=== PATIENT | female | born 1955 | race Caucasian/White ===

== ENCOUNTER → 2018-09-29 | Outpatient (CLI) | payer OTHER ==
[2015-05-21 08:10] VITALS: BP 130/61
[~2018-09-29] MED LIST: CANA300T PO; CLOP75TA PO; ERGO500027 PO; FENO145T30 PO; FERR325T72 PO; INSU100C4 SQ; INSU100I13 SQ; LEVO175T5 PO; LISI10TA2 PO; METF500T16 PO; OMEP10CA PO; SERT100T8 PO; SIMV80TA7 PO
--- NOTE | 2018-09-29 08:47 | RAD ---
DATE: 09/29/2018 EXAM: DIGITAL SCREEN BILAT W/CAD HISTORY: Routine screening COMPARISON: Baseline study This study was interpreted with the benefit of Computerized Aided Detection (CAD). Breast Density: FATTY The breast parenchyma is primarily fatty replaced. Breast parenchyma level density A. FINDINGS: No suspicious breast densities are seen. Benign type calcifications are present. No suspicious microcalcifications are evident. IMPRESSION: There is no mammographic evidence of malignancy in either breast. BI-RADS CATEGORY: 2 BENIGN FINDING(S) RECOMMENDED FOLLOW-UP: 12M 12 MONTH FOLLOW-UP PQRS compliance statement: Patient information was entered into a reminder system with a target due date for the next mammogram. Mammography is a sensitive method for finding small breast cancers, but it does not detect them all and is not a substitute for careful clinical examination. A negative mammogram does not negate a clinically suspicious finding and should not result in delay in biopsying a clinically suspicious abnormality. "Our facility is accredited by the [employer] Mammography Program."
== END | disposition home or self-care (01) ==
LOC: MAMMO 07:52
PROVIDERS: ATTEND Family Medicine
DX: Z12.31 Encounter for screening mammogram for malignant neoplasm of breast (principal)
CPT/HCPCS: 77067

== ENCOUNTER → 2019-06-08 | Outpatient (CLI) | payer OTHER ==
[2015-05-21 08:10] VITALS: BP 130/61
[~2019-06-08] MED LIST changes: +SIMV80TA17 PO; -SIMV80TA7 PO
--- NOTE | 2019-06-08 12:05 | KCIC ---
MRI Lumbar Spine without contrast History: Low back pain, osteoarthritis Technique: Multiplanar, multi sequential noncontrast MR imaging was performed of the lumbar spine. Comparison: None Findings: Lumbar vertebral body stature is mostly maintained other than multilevel small Schmorl's nodes. There is mild grade 1 anterior spondylolisthesis at L5-S1. There is fairly advanced degenerative disc disease variably L2-3 through L4-5 and to lesser degree at L1-2 and L5-S1. There is very minimal L2-3 and L1-2 endplate edema likely reactive/degenerative in etiology. Conus terminates at L1. T11-12: There is shallow broad posterior bulge/protrusion without significant spinal stenosis. There is mild posterior neural foramina compromise by facets. T12-L1: There is mild buckling of the ligamentum flavum greater on the right. Spinal canal and neural foramina are adequate. L1-2: There is minimal disc osteophyte complex and bulge, mild buckling of the ligamentum flavum, and mild facet degenerative change. Spinal canal is adequate. There is mild posterior narrowing of the left neural foramen by facet, right neural foramen adequate. L2-L3: There is disc osteophyte complex and bulge/broad protrusion about 2 mm AP. There is mild facet hypertrophic change and buckling of the ligamentum flavum. There is mild narrowing of the far left lateral recess. There is [id number] narrowing of the left neural foramen mostly from posteriorly by facet, right neural foramen adequate. L3-L4: There is disc osteophyte complex and bulge. There is mild to moderate facet hypertrophic change and mild buckling of the ligamentum flavum. There is mild narrowing of the far left lateral recess. There is mild to moderate narrowing of the left neural foramen by disc osteophyte complex and facet, disc osteophyte complex near the extraforaminal left L3 nerve root without significant displacement. Right neural foramen is overall adequate. L4-L5: There is negligible disc osteophyte complex. There is mild buckling of the ligamentum flavum and mild to moderate facet degenerative change. Spinal canal is adequate. Left neural foramen is adequate, mild narrowing of the right neural foramen greater distally. L5-S1: There is moderate to severe left facet degenerative change, minimally on the right. Spinal canal is adequate. There is mild posterior narrowing of the right neural foramen, moderate to severe narrowing greater distally on the left in part by disc osteophyte complex with contact of the exiting left L5 nerve root. Impression: 1. There is multilevel fairly advanced degenerative disc disease variably L2-3 through L4-5 and to lesser degree at other levels, multilevel spondylosis. 2. There is mild narrowing of the far left lateral recesses at L2-3 and L3-4. 3. There is neural foramina compromise as stated most notable on the left at L5-S1 with contact exiting left L5 nerve root, lesser degree of narrowing on the left at L3-4 and L2-3. Electronically signed by: Jeromy Carpenter MD (06/08/2019 12:02 PM) [id number]
== END | disposition home or self-care (01) ==
LOC: KCIC MRI 10:36
PROVIDERS: ATTEND Family Medicine
DX: M51.37 Other intervertebral disc degeneration, lumbosacral region (principal); M47.816 Spondylosis without myelopathy or radiculopathy, lumbar region; M48.07 Spinal stenosis, lumbosacral region; M43.17 Spondylolisthesis, lumbosacral region; M25.78 Osteophyte, vertebrae; M89.38 Hypertrophy of bone, other site
CPT/HCPCS: 72148

== ENCOUNTER → 2019-07-05 | Outpatient (CLI) | payer OTHER ==
[2015-05-21 08:10] VITALS: BP 130/61
[~2019-07-05] MED LIST changes: +COLE1TAB2 PO; +DICL75TA PO; +IBUP-1027 PO; +INSU100C SQ; +INSU100V13 SQ; +cbd oil PO
--- NOTE | 2019-07-06 04:20 | PAIN ---
DATE OF SERVICE: 07/05/2019 INITIAL CONSULTATION CHIEF COMPLAINT: Low back pain. HISTORY OF PRESENT ILLNESS: This is a 64-year-old female who presents with history of pain in the low back bilaterally without radiation in lower extremities, but present for about a year, gradually increasing, not result of any specific injury or action that she is aware of, but getting much worse with time. The patient reports it is worse with standing, walking, changing positions, especially with extension of the lumbar spine, reaching up over her head to a shelf and extension of the spine. Forward flexion decreases the pain to a moderate extent. The patient reports the pain is constant daily. It is aching, radiating across the low back, but not into the legs. It is dull as well as a throbbing pain in the back itself. The patient reports it does not awake her from sleep at night, feels much better with lying down. It does not affect her bowel or bladder control, does affect her ability to walk significantly without any weakness in the lower extremities. However, the patient has tried physical therapy, also chiropractic treatment. She is currently doing once a week and doing exercise on her own since April. The patient reports that the physical therapy helped to some extent, but does not decrease the pain consistently. She is doing the exercises from therapy and also seeing chiropractic about once a week, which helps ____. The patient has tried prednisone, muscle relaxer as Tylenol, ibuprofen, always helped to a moderate extent, but nothing long-lasting. The patient rates her disability rating from 0-10, 10 being the worst at night, with 10 family home responsibilities, recreation, social activity and occupation, 0 with sexual behavior and 1 with self-care and 0 with life support activities. The patient did have imaging of the lumbar spine MRI showing multilevel fairly advanced degenerative disc disease at L2-L3 through L4-L5 with mild narrowing of the far left lateral recess at L2-L3 and L3-L4 and neural foraminal compromise notable on the left at L5-S1 with contact exiting left L5 nerve root. PAST MEDICAL HISTORY: Significant for type 2 diabetes, hypothyroidism, anemia, arthritis. PAST SURGICAL HISTORY: Previous surgery include x 2, cholecystectomy, D&C, and a DVT, which was calcified removed from the left calf. CURRENT MEDICATIONS: Include diclofenac, colestipol, insulin, ibuprofen, metformin, Invokana, sertraline, Plavix, iron, lisinopril, vitamin D2, simvastatin, Prilosec, and fenofibrate. ALLERGIES: ASPIRIN and SULFA. FAMILY HISTORY: Significant for heart disease and diabetes. SOCIAL HISTORY: The patient does not drink alcohol, does not smoke, does not use any illegal, illicit or recreational drugs. She is , lives with her spouse, has one child living at home, lives locally in [place], [place]. REVIEW OF SYSTEMS: The patient's review of systems is positive for those items mentioned in history of present illness. All systems reviewed and otherwise negative. It is complete, full and well documented on the patient's chart. PHYSICAL EXAMINATION: VITAL SIGNS: The patient's blood pressure is 148/67, pulse 73, respirations 18, temperature 98.5 degrees Fahrenheit, height is 5 feet 5 inches, and weight is 201 pounds. GENERAL: The patient is awake, alert, oriented, appropriate, very pleasant demeanor. HEENT: Head shows normocephalic, atraumatic. Extraocular movements are intact and symmetrical. Oral cavity, mucous membranes moist and pink. Dentition is intact. NECK: Shows anterior throat supple without palpable lymphadenopathy noted. Swallow reflex symmetrical. CHEST: Shows normal on inspection. Breath sounds clear to auscultation bilaterally. HEART: Shows S1, S2 clear. No murmurs auscultated. ABDOMEN: Soft, nontender, nondistended. No palpable organomegaly is noted. No rebound or guarding demonstrated. BACK: Shows spine grossly in the midline, normal-appearing cervical lordotic curvature, thoracic kyphotic curvature, and mild flattening of lumbar lordotic curvature. Lumbar paraspinous muscle shows symmetrical on inspection with palpation shows some mild tenderness throughout the upper, middle, and lower distribution of paraspinous muscles, but only diffusely without specific radiation. The patient has good rotational motion of lumbar spine both laterally greater than 10 degrees right and left as well as forward flexion 45 degrees, but with extension and axial loading of the low back shows significant tenderness in the low back itself equally right and left without radiation to the lower extremities. EXTREMITIES: The patient's lower extremities show deep tendon reflexes at 2+ in the patellar and 1+ tendo calcaneus tendons. Motor exam is strong with 5/5 dorsiflexion, extension, quadriceps and hamstring flexion. Peripheral pulses are 1+ posterior tibia. No peripheral edema is noted. Straight leg raise noted to be negative bilaterally as is Gaenslen's and Reyes's maneuvers bilaterally. Lower extremities are warm and dry to touch, equal in color and appearance. The patient is able to stand, stand on her toes without difficulty or loss of balance, walks with a normal appearing gait for short distance in the office today, not using any assistive devices to ambulate. SKIN: Shows warm and dry, good turgor. No edema. No sores, rashes or bruising. IMPRESSION: 1. This is a 64-year-old female with a long history about 1 year increasing pain across the low back worse with standing, extension of the lumbar spine, and axial loading of the low back. 2. ____. PLAN: Options were discussed with the patient including conservative medical management, physical therapies, interventional techniques, and she is doing physical therapy also, doing chiropractic. She would like to try interventional techniques. We discussed lumbar facet joint injections at L4-L5 and L5-S1 using description as well as anatomical models to describe the procedure. The patient will wait for preauthorization from her insurance provider. Once this is authorized, we will have her return for facet joint injections, L4-L5 and L5-S1 bilaterally. In the meantime, the patient will continue with exercises, stretching, strengthening, and chiropractic treatment as scheduled. JOSR KERR MD DR: BRAULIO/jo JOB#: [id number] / [id number]
== END | disposition home or self-care (01) ==
LOC: PNCL 07:47
PROVIDERS: ATTEND Anesthesiology
DX: M54.16 Radiculopathy, lumbar region (principal); M19.90 Unspecified osteoarthritis, unspecified site; M40.294 Other kyphosis, thoracic region; M40.46 Postural lordosis, lumbar region; E11.9 Type 2 diabetes mellitus without complications; E03.9 Hypothyroidism, unspecified
CPT/HCPCS: G0463

== ENCOUNTER → 2019-08-01 | Outpatient (CLI) | payer OTHER ==
[2015-05-21 08:10] VITALS: BP 130/61
[~2019-08-01] MED LIST changes: +BUPIVACAINE MPF 0.25% 10 ML VIAL. ONE; +IOHEXOL 180 MG/ML 10 ML VIAL. ONE; +methylPREDNISolone ACETATE 40 MG/ML VIAL. ONE; +methylPREDNISolone ACETATE 80 MG/ML VIAL. ONE
--- NOTE | 2019-08-01 19:20 | PAIN ---
DATE OF SERVICE: 08/01/2019 PROGRESS NOTE FOR PAIN CLINIC DIAGNOSES: Lumbar degenerative disk disease with lumbar and lumbosacral spondylosis. HISTORY OF PRESENT ILLNESS: The patient is a 64-year-old female who returns for followup status post initial evaluation and clearance to be off of her Plavix. She has been off of it now for 7 days, returns with still significant pain across the low back as it was previously, right essentially equal to left; worse with walking, standing, changing positions, especially with extension of the lumbar spine. The patient reports it is a 9 on a scale of 10 at its worst over the past week, 9 on average, 8 at its least and is a 9 today. The patient reports it is aching and constant, sometimes radiating across the back, but not into the lower extremities. The patient reports no new motor or sensory deficits, no new bowel or bladder incontinence, still awakens her from sleep at night, and it is worse with standing and walking. PHYSICAL EXAMINATION: VITAL SIGNS: Today, the patient's blood pressure is 142/73, pulse 70, respirations 16, temperature 98.0 degrees Fahrenheit, weight is 205 pounds. GENERAL: The patient is awake, alert, oriented, appropriate, very pleasant demeanor. HEENT: Shows normocephalic, atraumatic. Extraocular movements are intact and symmetrical. Oral cavity: Mucous membranes moist and pink. Dentition is intact. NECK: Shows anterior throat supple. CHEST: Shows normal on inspection. Breath sounds clear to auscultation bilaterally. HEART: Shows S1, S2 clear. ABDOMEN: Soft, nontender, nondistended. BACK: Shows spine grossly in the midline. Lumbar paraspinous muscle shows symmetrical on inspection, with palpation shows some moderate tenderness diffusely bilaterally, but only diffusely in the low lumbar distribution. This is worse with extension of the lumbar spine and axial loading also with right and left lateral rotation shows some moderate tenderness bilaterally, but better with forward flexion. EXTREMITIES: The patient's lower extremities show deep tendon reflexes 2+ in the patellar, 1+ tendo-calcaneus tendons. Motor exam is 5/5 with dorsiflexion, extension, quadriceps and hamstring flexion and symmetrical. Peripheral pulses are 1+. No peripheral edema is noted. Options were discussed with the patient. The patient's old chart was reviewed as her current medication regimen updated. Current review of systems updated today as well. We will proceed today with bilateral L4-L5 and L5-S1 facet joint injections with fluoroscopic guidance. Risks were again discussed including, but not limited to bleeding, infection, possibility of epidural hematoma, subsequent neurologic compromise, dural puncture, headaches, spinal cord and/or nerve damage, side effects of steroid medication and poor results regarding pain control. The patient understands and wished to proceed. The patient will return to clinic in approximately 2 weeks for followup. She was counseled on return appointment, activity level and side effects to be aware of. She will restart her Plavix tomorrow. DIAGNOSIS: Lumbar and lumbosacral spondylosis. PROCEDURE: Bilateral L4-L5 and L5-S1 facet joint injections using C-arm fluoroscopic guidance under sterile prep and drape using local anesthetic. MEDICATION INJECTED: A total of 120 mg Depo-Medrol plus 4 mL of 0.25% bupivacaine and 2 mL total of contrast. CONDITION AT DISCHARGE: Stable. The patient tolerated procedure well, had no complications. JOSR KERR MD DR: BRAULIO/jo JOB#: [id number] / [id number]
== END ==
LOC: PNCL 10:12
PROVIDERS: ATTEND Anesthesiology
DX: M47.817 Spondylosis without myelopathy or radiculopathy, lumbosacral region (principal); M51.36 Other intervertebral disc degeneration, lumbar region
CPT/HCPCS: 64493; 64494; J1030; J1040; J3490; Q9965

== ENCOUNTER → 2019-08-20 | Outpatient (CLI) | payer OTHER ==
[2015-05-21 08:10] VITALS: BP 130/61
[~2019-08-20] MED LIST changes: -BUPIVACAINE MPF 0.25% 10 ML VIAL. ONE; -IOHEXOL 180 MG/ML 10 ML VIAL. ONE; -methylPREDNISolone ACETATE 40 MG/ML VIAL. ONE; -methylPREDNISolone ACETATE 80 MG/ML VIAL. ONE
--- NOTE | 2019-08-20 11:46 | PAIN ---
DATE OF SERVICE: 08/20/2019 PROGRESS NOTE FOR PAIN CLINIC DIAGNOSES: Lumbar degenerative disk disease with lumbar and lumbosacral spondylosis, stenosis. HISTORY OF PRESENT ILLNESS: The patient is a 64-year-old female who returns for followup status post bilateral L4-L5 and L5-S1 facet joint injections. She returns reporting about 90% improvement for the first several days and even still better today, but only by about 50% improvement overall. The patient reports after several days, the pain returned after the first week, but is still better than it was. The patient reports the pain is a 9 on a scale of 10 at its worst in the past week, 8 on average, 8 at its least and is an 8 today. The patient reports it is worse with standing, changing positions, walking, twisting, especially with extension of the lumbar spine and axial loading of the low back and lumbar facets. The patient reports the pain is aching and tight, tingling, radiating across the low back, sometimes into the posterior gluteus, but not into the lower extremities and can be severe with standing and walking. The patient reports it is better with sitting or lying down, does not awaken her from sleep at night. PHYSICAL EXAMINATION: VITAL SIGNS: The patient's blood pressure 141/67, pulse 74, respirations 18, temperature 98.2 degrees Fahrenheit, height is 5 feet 5 inches, weight is 202 pounds. GENERAL: The patient is awake, alert, oriented, appropriate, very pleasant demeanor. HEENT: Head shows normocephalic, atraumatic. Extraocular movements intact and symmetrical. Oral cavity, mucous membranes are moist and pink. Dentition is intact. NECK: Shows anterior throat supple. CHEST: Shows normal on inspection. Breath sounds are clear bilaterally. HEART: Shows S1, S2 clear. ABDOMEN: Soft, nontender, nondistended. BACK: Shows spine grossly in the midline. Lumbar paraspinous muscle shows symmetrical on inspection with normal lordotic curvature. Lumbar paraspinous muscles with palpation shows some moderate tenderness diffusely in the inferior aspect of the lumbar paraspinous muscles, but only inferiorly; however. The patient shows good rotational motion with significant pain with extension of the lumbar spine and axial loading of the low back greater than 10 degrees, forward flexion decreases this pain at 45 degrees, right and left lateral rotation is mildly tender bilaterally in the low back as well, but without radiation. EXTREMITIES: The patient's lower extremities show deep tendon reflexes 2+ in the patellar and tendo calcaneus tendons. Motor exam is strong with 5/5 dorsiflexion, extension, quadriceps and hamstring flexion equal. Peripheral pulses are 1+ posterior tibial. Options were discussed with the patient. The patient's old chart was reviewed as well as her current medication regimen updated. Current review of systems updated today as well. We will preauthorize the patient for a second set of bilateral L4-L5 and L5-S1 facet joint injections. The patient still has significant pain with extension and axial loading of the low back and lumbar spine, but improved significantly after the first diagnostic injection. We will preauthorize for repeat injection and did discuss potential radiofrequency ablation in the future if she does well with his next set as well. JOSR KERR MD DR: BRAULIO/jo JOB#: [id number] / [id number]
== END | disposition home or self-care (01) ==
LOC: PNCL 10:22
PROVIDERS: ATTEND Anesthesiology
DX: M51.36 Other intervertebral disc degeneration, lumbar region (principal); M48.061 Spinal stenosis, lumbar region without neurogenic claudication; M47.816 Spondylosis without myelopathy or radiculopathy, lumbar region
CPT/HCPCS: G0463

== ENCOUNTER → 2019-09-04 | Outpatient (CLI) | payer OTHER ==
[2015-05-21 08:10] VITALS: BP 130/61
[~2019-09-04] MED LIST changes: +BUPIVACAINE MPF 0.25% 10 ML VIAL. ONE; +IOHEXOL 180 MG/ML 10 ML VIAL. ONE; +methylPREDNISolone ACETATE 40 MG/ML VIAL. ONE; +methylPREDNISolone ACETATE 80 MG/ML VIAL. ONE
--- NOTE | 2019-09-04 13:26 | PAIN ---
DATE OF SERVICE: 09/04/2019 PROGRESS NOTE FOR PAIN CLINIC DIAGNOSES: Lumbar degenerative disk disease, lumbar and lumbosacral spondylosis. HISTORY OF PRESENT ILLNESS: The patient is a 64-year-old female who returns for followup status post bilateral L4-L5 and L5-S1 facet joint injection x 1. The patient did very well with about 90% improvement first few days then down to about 50% improvement overall. The patient reports the pain is still about 50%. She has had a preauthorization for second injection set today and would like to proceed. The patient reports still significant pain across the low back, worse with standing, extension of the spine and axial loading in the low back as well as slight left lateral rotation, walking and resting is much better, sitting down, does not awaken her from sleep at night. The patient reports the pain is a 9 on a scale of 10 at its worst, 8-9 on average, 8 at its least and is an 8 today. The patient reports it is aching, dull, radiating across the low back and constant, but without into the lower extremities. The patient reports no new motor or sensory deficits, no new bowel or bladder incontinence or other complaints. PHYSICAL EXAMINATION: VITAL SIGNS: The patient's blood pressure 145/67, pulse 79, respirations 18, temperature 98.8 degrees Fahrenheit, height is 5 feet 5 inches, weight is 200 pounds. GENERAL: The patient is awake, alert, oriented, appropriate, very pleasant demeanor. HEENT: Exam shows normocephalic, atraumatic. Extraocular movements are intact and symmetrical. Oral cavity: Mucous membranes moist and pink. Dentition is intact. NECK: Shows anterior throat supple without palpable lymphadenopathy noted. Swallow reflex is symmetrical. CHEST: Shows normal on inspection. Breath sounds clear to auscultation bilaterally. HEART: Shows S1, S2 clear. No murmurs auscultated. ABDOMEN: Soft, nontender, nondistended. No palpable organomegaly is noted. No rebound or guarding demonstrated. BACK: Shows spine grossly in the midline. Normal-appearing thoracic kyphosis and minor flattening of lumbar lordotic curvature. Lumbar paraspinous muscle shows symmetrical on inspection, on palpation shows some moderate tenderness diffusely bilaterally, going diffusely without significant radiation. The patient has good rotational motion with some moderate tenderness right and left, greater than 10 degrees as well as extension greater than 10 degrees with some significant tenderness in the low back itself, but without radiation. Forward flexion 45 degrees is performed with some decrease in relief of the pain in the low back. EXTREMITIES: Lower extremities show deep tendon reflexes 2+ ____. Motor exam is strong with 5/5 dorsiflexion, extension, quadriceps and hamstring flexion and symmetrical. Peripheral pulses are 1+ posterior tibia. No peripheral edema is noted. Options were discussed with the patient. The patient's old chart was reviewed as her current medication regimen updated. Current review of systems updated today as well. We will proceed with a repeat L4-L5 and L5-S1 facet joint injections today with fluoroscopic guidance. Risks were again discussed including, but not limited to bleeding, infection, possibility of epidural hematoma, subsequent neurological compromise, dural puncture, headaches, spinal cord and/or nerve damage, side effects of steroid medication and poor results regarding pain control. The patient understands and wished to proceed. The patient will return to clinic in approximately 2 weeks for followup. She was counseled as to return appointment, activity level and side effects to be aware of. We did discuss that she has similar results with the injections today. We may consider radiofrequency ablation in the future and she is interested in pursuing this as well. DIAGNOSIS: Lumbar and lumbosacral spondylosis. PROCEDURE: Bilateral L4-L5 and L5-S1 facet joint injections using C-arm fluoroscopic guidance under sterile prep and drape using local anesthetic. MEDICATION INJECTED: A total of 120 mg of Depo-Medrol plus total of 4 mL of 0.25% bupivacaine, total of 2 mL of contrast. CONDITION AT DISCHARGE: Stable. The patient tolerated the procedure well, had no complications. JOSR KERR MD DR: BRAULIO/jo JOB#: [id number] / [id number]
== END | disposition home or self-care (01) ==
LOC: PNCL 11:25
PROVIDERS: ATTEND Anesthesiology
DX: M51.36 Other intervertebral disc degeneration, lumbar region (principal); M47.816 Spondylosis without myelopathy or radiculopathy, lumbar region
CPT/HCPCS: 64493; 64494; J1030; J1040; J3490; Q9965

== ENCOUNTER → 2019-09-14 | Outpatient (CLI) | payer OTHER ==
[2015-05-21 08:10] VITALS: BP 130/61
[~2019-09-14] MED LIST changes: -BUPIVACAINE MPF 0.25% 10 ML VIAL. ONE; -IOHEXOL 180 MG/ML 10 ML VIAL. ONE; -methylPREDNISolone ACETATE 40 MG/ML VIAL. ONE; -methylPREDNISolone ACETATE 80 MG/ML VIAL. ONE
--- NOTE | 2019-09-14 19:06 | PAIN ---
DATE OF SERVICE: 09/14/2019 PROGRESS NOTE FOR PAIN CLINIC DIAGNOSES: Lumbar and lumbosacral spondylosis with lumbar degenerative disk disease. HISTORY OF PRESENT ILLNESS: The patient is a 64-year-old female who returns for followup status post bilateral lumbar facet joint injections at L4-L5 and L5-S1 with about 90% improvement. The patient reports that this has been 2 weeks ago now and she is still about 75% improved overall. The patient reports about 90% improved for the first 10 days or so and then after that, the pain is beginning to return, but only very slightly. The patient reports still 75% improvement to this day. The patient reports pain across the low back and not radiating into the posterior lower extremities, but only in the back itself, without radiation. The patient reports it is aching, on and off in intensity. There is some stiffness in the morning at times and if she has been sitting for too long or standing for too long, such as riding in a car for too long, but is sleeping better at night. The patient reports it does not awaken her from her sleep. She still has the pain rated at 5 on a scale of 10 at its worst over the past week, 3 on average, 2 at its least and is 2 today. The patient reports that she is significantly better, but with extension of the lumbar spine and axial loading of the low back, this does increase the pain to a significant extent and causes some stiffness feeling as well on the low back. The patient reports no radiation to the lower extremities. No new motor or sensory deficits, no new bowel or bladder incontinence or other complaints. PHYSICAL EXAMINATION: VITAL SIGNS: The patient's blood pressure is 128/69, pulse 74, respirations 18 and temperature is 98.7 degrees Fahrenheit. Height is 5 feet 5 inches, weight is 199 pounds. GENERAL: The patient is awake, alert, oriented, appropriate. She has very pleasant demeanor. HEENT: Exam shows normocephalic, atraumatic. Extraocular movements are intact and symmetrical. Oral cavity: Mucous membranes are moist and pink. NECK: Shows anterior throat supple, without palpable lymphadenopathy noted. Swallow reflex is symmetrical. CHEST: Shows normal on inspection. Breath sounds are clear to auscultation bilaterally. HEART: Shows S1, S2 clear. No murmurs auscultated. ABDOMEN: Soft, nontender and nondistended. No palpable organomegaly is noted. BACK: Shows spine grossly in the midline. Lumbar paraspinous muscle shows some slight decrease in the lordotic curvature. Paraspinous muscles are symmetrical on inspection. With palpation, it shows some moderate tenderness diffusely in the middle and lower distribution of the paraspinous muscles, but with rotation, the patient did have increase in pain, especially to the right with lateral rotation greater than 10 degrees and some moderate pain with left lateral rotation greater than 10 degrees. With extension greater than 10 degrees, it shows increase in pain to a marked amount, where this is much more noticeable with axial loading and extension of the lumbar spine, but without specific radiation. EXTREMITIES: The patient's lower extremities show deep tendon reflexes 2+ in the patellar and tendo calcaneus tendons are 1+. Motor exam is strong with 5/5 dorsiflexion, extension, quadriceps and hamstring flexion and symmetrical. Peripheral pulses are 1+ posterior tibia. No peripheral edema is noted. Options were discussed with the patient. The patient's old chart was reviewed as was her current medication regimen updated. Current review of systems updated today as well. We will preauthorize the patient for radiofrequency ablation. She has had 2 diagnostic facet joint injections with excellent results and still significant pain with axial loading in the low back and lumbar spine, but without radiation in the lower extremities. The patient has done very well and would like to proceed with lumbar radiofrequency ablation at the L4-L5 and L5-S1 levels bilaterally. We will make the arrangements to have her preauthorized as well as we will hold her Plavix again for 7 days prior to the procedure and return once she is scheduled. JOSR KERR MD DR: BRAULIO/jo JOB#: [id number] / [id number]
== END | disposition home or self-care (01) ==
LOC: PNCL 10:14
PROVIDERS: ATTEND Anesthesiology
DX: M51.36 Other intervertebral disc degeneration, lumbar region (principal); M47.816 Spondylosis without myelopathy or radiculopathy, lumbar region
CPT/HCPCS: G0463

== ENCOUNTER → 2019-09-28 | Outpatient (CLI) | payer OTHER ==
[2015-05-21 08:10] VITALS: BP 130/61
[~2019-09-28] MED LIST changes: +BUPIVACAINE MPF 0.25% 10 ML VIAL. ONE; +LIDOCAINE 1% PF 2 ML VIAL. ONE; +LIDOCAINE 2% PF 5 ML VIAL. ONE; +methylPREDNISolone ACETATE 40 MG/ML VIAL. ONE; +methylPREDNISolone ACETATE 80 MG/ML VIAL. ONE
--- NOTE | 2019-09-28 13:02 | PAIN ---
DATE OF SERVICE: 09/28/2019 PROGRESS NOTE FOR PAIN CLINIC DIAGNOSES: Lumbar and lumbosacral spondylosis with lumbar degenerative disk disease. HISTORY OF PRESENT ILLNESS: The patient is a 64-year-old female who returns for followup status post facet joint injections with excellent results about 75%-80% improvement for several weeks after each injection. This was done twice and the patient elected to go forward with radiofrequency ablation. The patient still reports pain in the low back, across the back, right and left, worse with extension and axial loading of the lumbar spine, better with forward flexion increases with rotational motion as well, worse with walking, standing, sitting. The patient reports sometimes trying to sleep, becomes unbearable. The patient reports it is constant, radiating and aching, radiating to posterior gluteus at times, mostly just in the low back. The patient rates it 9 on a scale of 10 at all times, worst, least and its average over the past week and is a 9 today. The patient reports it awakens her from sleep every 5 to 6 hours. She has to reposition and she can easily get back to sleep. The patient reports no new motor or sensory deficits, no new bowel or bladder incontinence or other complaints. PHYSICAL EXAMINATION: VITAL SIGNS: The patient's blood pressure is 136/76, respirations 18, pulse is 87, temperature 98.0 degrees Fahrenheit, height is 5 feet 5 inches, weight is 202 pounds. GENERAL: The patient is awake, alert, oriented, appropriate, very pleasant demeanor. HEENT: Head shows normocephalic, atraumatic. Extraocular movements are intact and symmetrical. Oral cavity: Mucous membranes moist and pink. Dentition is intact. NECK: Shows anterior throat supple without palpable lymphadenopathy noted. Swallow reflex symmetrical. CHEST: Shows normal on inspection. Breath sounds are clear to auscultation bilaterally. HEART: Shows S1, S2 clear. No murmurs auscultated. ABDOMEN: Soft, nontender, nondistended. No palpable organomegaly is noted. BACK: Shows spine grossly in the midline. Normal appearing thoracic kyphosis and lumbar lordotic curvature is slightly flattened. Lumbar paraspinous muscle shows symmetrical on inspection, with palpation shows some moderate tenderness diffusely bilaterally going diffusely in the low lumbar distribution. The patient has good rotational motion, but with moderate tenderness with right and left lateral rotation greater than 10 degrees in each right and left as well as moderate pain with extension of the lumbar spine, decreased with forward flexion at 45 degrees. EXTREMITIES: Lower extremities show deep tendon reflexes 2+ in the patellar and 1+ tendo-calcaneus tendons. Motor exam is strong with 5/5 dorsiflexion, extension, quadriceps and hamstring flexion. Options were discussed with the patient. The patient's old chart was reviewed as her current medication regimen updated. Current review of systems updated today as well. We will proceed with bilateral radiofrequency ablation medial branches at L4-L5 and L5-S1 levels. Risks were again discussed including, but not limited to bleeding, infection, possibility of epidural hematoma, subsequent neurological compromise, dural puncture, headaches, spinal cord and/or nerve damage, side effects of steroid medication and possible thermal damage to surrounding tissues as well as permanent ischemic damage and permanent motor damage as well as poor results regarding pain control. The patient understands and wished to proceed. The patient will return to clinic in approximately 2 weeks for followup. She was counseled on return appointment, activity level and side effects to be aware of. DIAGNOSES: Lumbar and lumbosacral spondylosis. PROCEDURE: Radiofrequency ablation, bilateral L4-L5 and L5-S1 medial branches using C-arm fluoroscopic guidance under sterile prep and drape using local anesthetic. MEDICATION INJECTED: A total of 120 mg Depo-Medrol plus 6 mL of 0.25% bupivacaine, 1 mL at each level after radiofrequency ablation, total of 6 mL of 2% lidocaine after motor testing and prior to radiofrequency ablation, 1 mL at each level. Please see radiofrequency flow sheet for levels, impedances, temperatures, and duration of thermal ablation. CONDITION AT DISCHARGE: Stable. The patient tolerated procedure well, had no complications. JOSR KERR MD DR: BRAULIO/jo JOB#: [id number] / [id number]
== END | disposition home or self-care (01) ==
LOC: PNCL 11:00
PROVIDERS: ATTEND Anesthesiology
DX: M47.816 Spondylosis without myelopathy or radiculopathy, lumbar region (principal); M51.36 Other intervertebral disc degeneration, lumbar region; Z98.890 Other specified postprocedural states; Z88.8 Allergy status to other drugs, medicaments and biological substances; Z88.1 Allergy status to other antibiotic agents
CPT/HCPCS: 64635; 64636; J1030; J1040; J2001; J3490

== ENCOUNTER → 2019-10-29 | Outpatient (CLI) | payer OTHER ==
[2015-05-21 08:10] VITALS: BP 130/61
[~2019-10-29] MED LIST changes: -BUPIVACAINE MPF 0.25% 10 ML VIAL. ONE; -LIDOCAINE 1% PF 2 ML VIAL. ONE; -LIDOCAINE 2% PF 5 ML VIAL. ONE; -methylPREDNISolone ACETATE 40 MG/ML VIAL. ONE; -methylPREDNISolone ACETATE 80 MG/ML VIAL. ONE
--- NOTE | 2019-10-29 10:01 | PAIN ---
DATE OF SERVICE: 10/29/2019 PROGRESS NOTE FOR PAIN CLINIC DIAGNOSES: Lumbar and lumbosacral spondylosis with lumbar degenerative disk disease. HISTORY OF PRESENT ILLNESS: The patient is a 64-year-old female who returns for followup status post radiofrequency ablation bilaterally at the L4-L5 and L5-S1 medial branches. The patient reports she did well, better about 50% overall improvement in the low back pain. The patient reports it is much easier getting up out of bed in the morning, getting around much easier, but still has some significant pain in the low back and more on the right side than the left. It is aching and tight, radiating again, very infrequent compared to that previously. The patient has increased her distance walking, doing greater activities at work as well as at home with greater ease and comfort, sleeping better at night, does not awaken her from sleep. The patient reports the pain is aching and tight, radiating at times into the right hip. The patient reports if she stands too long, it starts to hurt as well as walking briskly and slower walk is much more comfortable. The patient reports the pain is 8 on a scale of 10 at its worst over the past week, 6 on average, 5 at its least and is a 5 today. The patient reports no new motor or sensory deficits, no new bowel or bladder incontinence or other complaints. PHYSICAL EXAMINATION: VITAL SIGNS: The patient's blood pressure is 151/64, pulse 87, respirations 18, temperature 98.7 degrees Fahrenheit, height is 5 feet 4 inches, weight is 204 pounds. GENERAL: The patient is awake, alert, oriented, appropriate, very pleasant demeanor. HEENT: Shows normocephalic, atraumatic. Extraocular movements are intact and symmetrical. Oral cavity shows mucous membranes moist and pink. Dentition is intact. NECK: Shows anterior throat supple without palpable lymphadenopathy noted. Swallow reflex symmetrical. CHEST: Shows normal on inspection. Breath sounds are clear bilaterally. HEART: Shows S1, S2 clear. Soft, nontender, nondistended. No palpable organomegaly is noted. No rebound or guarding demonstrated. BACK: Shows spine grossly in the midline. Normal appearing thoracic kyphosis and some slight flattening of lumbar lordotic curvature. Lumbar paraspinous muscle shows symmetrical on inspection, on palpation shows some moderate tenderness diffusely bilaterally, but only diffusely without radiation. The patient has good rotational motion of lumbar spine, both laterally as well as extension and flexion with much better ease and comfort, especially with extension, which is mildly tender, but not compared to previous exam. Forward flexion is performed to 45 degrees without difficulty. Right and left lateral rotations performed without pain reported greater than 10 degrees as well. EXTREMITIES: The patient's lower extremities show deep tendon reflexes 2+ in the patellar, 1+ tendo-calcaneus tendons. Motor exam is strong with 5/5 dorsiflexion, extension, quadriceps and hamstring flexion symmetrical. Peripheral pulses are 1+ posterior tibia. No peripheral edema is noted bilaterally. Options were discussed with the patient. The patient's old chart was reviewed as his current medication regimen updated. Current review of systems updated today as well. We will hold on any further injections at this time. The patient again is status post radiofrequency ablation one month ago, doing better, about 50%, but still there was some soreness left in the low back. We will try Medrol Dosepak to see if this may decrease some of the soreness and get her feeling a bit better. The patient would like to try this, was given instructions as well as side effects to be aware of with the medication. The patient will follow up in approximately 3 weeks or as necessary. JOSR KERR MD DR: BRAULIO/nts JOB#: [id number] / [id number]
== END | disposition home or self-care (01) ==
LOC: PNCL 07:58
PROVIDERS: ATTEND Anesthesiology
DX: M47.817 Spondylosis without myelopathy or radiculopathy, lumbosacral region (principal); M51.36 Other intervertebral disc degeneration, lumbar region
CPT/HCPCS: G0463

== ENCOUNTER → 2019-12-18 | Outpatient (CLI) | payer OTHER ==
[2015-05-21 08:10] VITALS: BP 130/61
[~2019-12-18] MED LIST changes: +FENO145T3 PO; -FENO145T30 PO; +INSU100V37 SQ; +IOHEXOL 180 MG/ML 10 ML VIAL. ONE; +methylPREDNISolone ACETATE 40 MG/ML VIAL. ONE; +methylPREDNISolone ACETATE 80 MG/ML VIAL. ONE
--- NOTE | 2019-12-19 00:24 | PAIN ---
DATE OF SERVICE: 12/18/2019 PROGRESS NOTE FOR PAIN CLINIC DIAGNOSES: Lumbar degenerative disk disease and lumbar and lumbosacral spondylosis and lumbar radiculopathy. HISTORY OF PRESENT ILLNESS: The patient is a 64-year-old female who returns for followup status post facet joint injections as well as bilateral radiofrequency ablation 09/28/2019. The patient reports the pain has changed after last conversation and it is radiating to the lower extremities, now much more significantly, especially in the low back, posterior gluteus, posterior thighs, lateral thighs, anterior medial thighs, more on the right than the left, but present and worse with walking, standing, changing positions, and essentially constant. The patient reports that all times, it is becoming more severe. The patient rates it as a 9 on a scale of 10 at all times, worst, average and least and is a 9 today. The patient reported tight and aching in the back with radiating, shooting pain in the lower extremities, again worse on the right side, but present bilaterally. The patient reports it is much different than the pain she had, was basically limited to adjust her back previously and now radiating to the lower extremities as a significant change. The patient reports no new motor or sensory deficits, no bowel or bladder incontinence. It has been awaking her from sleep at night every 4-5 hours. PHYSICAL EXAMINATION: VITAL SIGNS: The patient's blood pressure 134/64, pulse 76, respirations are 16, temperature 98.2 degrees Fahrenheit, weight is 207 pounds. GENERAL: The patient is awake, alert, oriented, appropriate, very pleasant demeanor. HEENT: Shows normocephalic, atraumatic. Extraocular movements are intact and symmetrical. Oral cavity: Mucous membranes moist and pink. Dentition is intact. NECK: Shows anterior throat supple without palpable lymphadenopathy noted. Swallow reflex symmetrical. CHEST: Shows normal on inspection. Breath sounds are clear bilaterally. HEART: Shows S1, S2 clear. ABDOMEN: Obese, soft, nontender, nondistended. BACK: Shows spine grossly in the midline, slight exaggerated thoracic kyphosis and minor flattening of lumbar lordotic curvature. Lumbar paraspinous muscle shows symmetrical on inspection, with palpation shows some moderate tenderness diffusely bilaterally in the low lumbar distribution, but is symmetrical without evidence of atrophy, hypertrophy. No trigger points. The patient does have some moderate tenderness with extension of the lumbar spine, but not forward flexion. Right and left lateral rotation is mildly tender only. EXTREMITIES: The patient's lower extremities show deep tendon reflexes 2+ in the patellar, 1+ tendo-calcaneus tendons. Motor exam is strong with 5/5 dorsiflexion, extension, quadriceps and hamstring flexion. Peripheral pulses are 1+. No peripheral edema is noted. Options were discussed with the patient. The patient's old chart was reviewed as her current medication regimen updated. Current review of systems updated today as well and we will proceed with a lumbar epidural steroid injection today with fluoroscopic guidance. Risks were again discussed including, but not limited to bleeding, infection, possibility of epidural hematoma, subsequent neurological compromise, dural puncture, headaches, spinal cord and/or nerve damage, side effects of steroid medication and poor results regarding pain control. The patient understands and wished to proceed. The patient will return to clinic in approximately 2 weeks for followup. She was counseled on return appointment, activity level and side effects to be aware of. DIAGNOSIS: Lumbar radiculopathy with lumbar degenerative disk disease and lumbar spondylosis. PROCEDURE: Lumbar epidural steroid injection, translaminar approach at L4-L5 level using C-arm fluoroscopic guidance under sterile prep and drape using local anesthetic. MEDICATION INJECTED: A total of 120 mg Depo-Medrol plus 10 mL of preservative-free normal saline and 2 mL of contrast. CONDITION AT DISCHARGE: Stable. The patient tolerated the procedure well, had no complications. JOSR KERR MD DR: BRAULIO/jo JOB#: [id number] / [id number]
== END ==
LOC: PNCL 14:10
PROVIDERS: ATTEND Anesthesiology
DX: M51.16 Intervertebral disc disorders with radiculopathy, lumbar region (principal); M47.817 Spondylosis without myelopathy or radiculopathy, lumbosacral region
CPT/HCPCS: 62323; J1030; J1040; Q9965

== ENCOUNTER → 2020-01-01 | Outpatient (CLI) | payer OTHER ==
[2015-05-21 08:10] VITALS: BP 130/61
--- NOTE | 2020-01-01 22:57 | PAIN ---
DATE OF SERVICE: 01/01/2020 PROGRESS NOTE FOR PAIN CLINIC DIAGNOSES: Lumbar degenerative disk disease with lumbar radiculopathy and lumbar spondylosis. HISTORY OF PRESENT ILLNESS: The patient is a 64-year-old female who returns for followup status post lumbar epidural steroid injection x1. The patient reports about 50% improvement, currently still keeping the pain down. The patient reports she is doing much better. Her right leg still hurts more than the left. Pain across the low back with walking, standing, but the pain is better, but bad when walking, standing, or bending repetitively for more than 15-20 minutes, also sitting in one position on a firm chair surface has been painful on the right side. The patient reports the pain is an 8 on a scale of 10, it is worst over the past week, 6-7 on average, and 6 at its least, and is a 6 today. The patient reports no new motor or sensory deficits. No new bowel or bladder incontinence. She is still sleeping better at night. It does not awaken her from sleep. PHYSICAL EXAMINATION: VITAL SIGNS: The patient's blood pressure 130/51, pulse 79, respirations 16, temperature 98.1 degrees Fahrenheit, weight is 214 pounds. GENERAL: The patient is awake, alert, oriented, appropriate, very pleasant demeanor. HEENT: Head shows normocephalic, atraumatic. Extraocular movements are intact and symmetrical. Oral cavity shows mucous membranes moist and pink. Dentition intact. NECK: Shows anterior throat supple without palpable lymphadenopathy noted. Swallow reflex symmetrical. CHEST: Shows normal on inspection. Breath sounds clear to auscultation bilaterally. HEART: Shows S1, S2 clear. No murmurs auscultated. ABDOMEN: Soft, nontender, nondistended. No palpable organomegaly is noted. No rebound or guarding demonstrated. BACK: Shows spine grossly in the midline. Normal appearing thoracic kyphosis and lumbar lordotic curvature slightly flattened. Lumbar paraspinous muscle shows symmetrical on inspection, on palpation shows some moderate tenderness diffusely bilaterally, but only diffusely without significant radiation. EXTREMITIES: The patient's lower extremities show deep tendon reflexes at 2+ in the patellar, 1+ in tendo-calcaneus tendons. Motor exam is strong with 5/5 dorsiflexion and extension. Quadriceps and hamstring flexion symmetrical. Peripheral pulses are 1+ posterior tibia. No peripheral edema bilaterally. Options were discussed with the patient. The patient's old chart was reviewed as her current medication regimen updated. Current review of systems updated today as well. We will proceed with a second in a series of lumbar epidural steroid injection today with fluoroscopic guidance. Risks were again discussed including, but not limited to bleeding, infection, possibility of epidural hematoma, subsequent neurological compromise, dural puncture, headaches, spinal cord and/or nerve damage, side effects of steroid medication, and poor results regarding pain control. The patient understands and wished to proceed. The patient will return to clinic in approximately 2 weeks for followup. She was counseled on return appointment, activity level, and side effects to be aware of. DIAGNOSES: Lumbar radiculopathy with lumbar degenerative disk disease and lumbar spondylosis. PROCEDURE: Lumbar epidural steroid injection, translaminar approach at L4-L5 level using C-arm fluoroscopic guidance under sterile prep and drape using local anesthetic. MEDICATION INJECTED: A total of 120 mg Depo-Medrol plus 10 mL of preservative-free normal saline and 2 mL of contrast. CONDITION AT DISCHARGE: Stable. The patient tolerated the procedure well, had no complications. JOSR KERR MD DR: BRAULIO/jo JOB#: [id number] / [id number]
== END | disposition home or self-care (01) ==
LOC: PNCL 13:04
PROVIDERS: ATTEND Anesthesiology
DX: M51.16 Intervertebral disc disorders with radiculopathy, lumbar region (principal); M47.26 Other spondylosis with radiculopathy, lumbar region; Z98.890 Other specified postprocedural states; Z88.1 Allergy status to other antibiotic agents; Z88.8 Allergy status to other drugs, medicaments and biological substances; Z88.6 Allergy status to analgesic agent
CPT/HCPCS: 62323; J1030; J1040; Q9965

== ENCOUNTER → 2020-01-22 | Outpatient (CLI) | payer OTHER ==
[2015-05-21 08:10] VITALS: BP 130/61
[~2020-01-22] MED LIST changes: -IOHEXOL 180 MG/ML 10 ML VIAL. ONE; -methylPREDNISolone ACETATE 40 MG/ML VIAL. ONE; -methylPREDNISolone ACETATE 80 MG/ML VIAL. ONE
--- NOTE | 2020-01-22 08:41 | PAIN ---
DATE OF SERVICE: 01/22/2020 PROGRESS NOTE FOR PAIN CLINIC DIAGNOSIS: Lumbar radiculopathy with lumbar degenerative disk disease and lumbar spondylosis. HISTORY OF PRESENT ILLNESS: The patient is a 64-year-old female who returns for followup status post lumbar epidural steroid injection x 2. Reports about 70% improvement after the last injection, still some pain in the low back and right lower extremity, posterior gluteus, posterior thigh and calf, but much less frequently. The patient reports increasing her activity with greater distance walking, doing work activities, household activities, traveling with greater ease and comfort, riding in a car better, worse with standing and walking, but much more tolerable than previously. The patient reports no new motor or sensory deficits, no new bowel or bladder incontinence. Rates his pain as a 6 on a scale of 10 at its worst over the past week, 5 on average, 5 at its least, and is a 5 today. The patient reports it is aching, on and off in intensity, sleeping well at night, does not awaken her from sleep. The patient reports no new motor or sensory deficits, no new bowel or bladder incontinence or other complaints. PHYSICAL EXAMINATION: VITAL SIGNS: The patient's blood pressure 144/73, pulse 81, respirations 18, temperature 98.1 degrees Fahrenheit. Height is 5 feet 5 inches, weight is 212 pounds. GENERAL: The patient is awake, alert, oriented, appropriate, very pleasant demeanor. HEENT: Head normocephalic, atraumatic. Extraocular movements are intact and symmetrical. Oral cavity: Mucous membranes moist and pink. Dentition is intact. NECK: Shows anterior throat supple without palpable lymphadenopathy noted. Swallow reflex symmetrical. CHEST: Shows normal on inspection. Breath sounds are clear bilaterally. HEART: Shows S1, S2 clear. No murmurs auscultated. ABDOMEN: Soft, nontender, nondistended. BACK: Shows spine grossly in the midline. Normal-appearing thoracic kyphosis, some minor flattening of lumbar lordotic curvature. Lumbar paraspinous muscle shows symmetrical on inspection, on palpation shows some moderate tenderness diffusely bilaterally going diffusely without significant radiation. EXTREMITIES: The patient's lower extremities show deep tendon reflexes at 2+ in the patellar and tendo-calcaneus tendons. Motor exam is strong with 5/5 dorsiflexion and extension and equal. Peripheral pulses are 1+ posterior tibial. No peripheral edema is noted. PLAN: Options were discussed with the patient. The patient's old chart was reviewed as her current medication regimen updated. Current review of systems updated today as well. We will hold on any further injections at this time as she is doing quite a bit better and still on her Plavix. We will have her return to the clinic in approximately 2 weeks or as necessary. The patient would like to budget this for time and copays with her insurance and will return after holding her Plavix if pain returns for 7 days prior to potential third lumbar epidural steroid injection. In the meantime, the patient will continue with stretching and strengthening exercises, walking as tolerated, and exercise as tolerated. JOSR KERR MD DR: BRAULIO/nts JOB#: [id number] / [id number]
== END | disposition home or self-care (01) ==
LOC: PNCL 07:38
PROVIDERS: ATTEND Anesthesiology
DX: M51.16 Intervertebral disc disorders with radiculopathy, lumbar region (principal); M47.26 Other spondylosis with radiculopathy, lumbar region
CPT/HCPCS: G0463

== ENCOUNTER → 2020-02-08 | Outpatient (CLI) | payer OTHER ==
[2015-05-21 08:10] VITALS: BP 130/61
[~2020-02-08] MED LIST changes: +IOHEXOL 240 MG/ML 50ML VIAL. ONE; +methylPREDNISolone ACETATE 40 MG/ML VIAL. ONE; +methylPREDNISolone ACETATE 80 MG/ML VIAL. ONE
--- NOTE | 2020-02-08 11:11 | PAIN ---
DATE OF SERVICE: 02/08/2020 PROGRESS NOTE FOR PAIN CLINIC DIAGNOSES: Lumbar degenerative disk disease with lumbar radiculopathy and lumbar spondylosis. HISTORY OF PRESENT ILLNESS: The patient is a 64-year-old female who returns for followup status post lumbar epidural steroid injection x 2. The patient reports about a 60% improvement overall with pain in low back and right lower extremity. The patient has been off her Plavix now for 7 days and would like to proceed with a third injection as we had scheduled. The patient reports still significant pain in the low back, right lower extremity, posterior gluteus, posterior thigh, lateral thigh, anterior thigh, medial thigh as well as across the low back bilaterally. The patient reports it is a 9 on a scale of 10 at its worst over the past week, 7-8 on average, 7-8 at its least and is a 7-8 today. The patient reports it is worse with walking and standing, better with sitting or lying down, generally it does not awaken her from sleep at night but has lately, but not every night. The patient reports it is aching, radiating and constant at times with walking and standing. The patient reports no new motor or sensory deficits, no new bowel or bladder incontinence or other complaints. PHYSICAL EXAMINATION: VITAL SIGNS: The patient's blood pressure 128/55, pulse 83, respirations 18, temperature 98.6 degrees Fahrenheit, weight is 214 pounds. GENERAL: The patient is awake, alert, oriented, appropriate, very pleasant demeanor. HEENT: Shows normocephalic, atraumatic. Extraocular movements are intact and symmetrical. Oral cavity: Mucous membranes moist and pink. Dentition is intact. NECK: Shows anterior throat supple without palpable lymphadenopathy noted. Swallow reflex symmetrical. CHEST: Shows normal on inspection. Breath sounds are clear bilaterally. HEART: Shows S1, S2. ABDOMEN: Soft, nontender, nondistended. No palpable organomegaly is noted. No rebound or guarding demonstrated. BACK: Shows spine grossly in the midline. Normal appearing thoracic kyphosis and minor flattening of lumbar lordotic curvature. Lumbar paraspinous muscle shows symmetrical on inspection, on palpation shows some moderate tenderness diffusely bilaterally, but only diffusely throughout the upper, middle and lower distribution of paraspinous muscles without radiation. The patient has good rotational motion of lumbar spine with some mild tenderness with extension, but not with forward flexion. EXTREMITIES: Lower extremities show deep tendon reflexes 2+ in the patellar, 1+ tendo-calcaneus tendons. Motor exam is 5/5 with dorsiflexion, extension and equal bilaterally. Peripheral pulses are 1+ posterior tibia. No peripheral edema is noted. Options were discussed with the patient. The patient's old chart was reviewed as was her current medication regimen updated. Current review of systems updated today as well. We will proceed with lumbar epidural steroid injections third in a series today with fluoroscopic guidance. Risks were again discussed including, but not limited to bleeding, infection, possibility of epidural hematoma, subsequent neurological compromise, dural puncture, headaches, spinal cord and/or nerve damage, side effects of steroid medication and poor results regarding pain control. The patient understands and wished to proceed. The patient will return to clinic in approximately 2 weeks for followup. She was counseled on return appointment, activity level and side effects to be aware of. The patient will restart her Plavix tomorrow on 02/09/2020 as instructed. DIAGNOSES: Lumbar radiculopathy with lumbar degenerative disk disease and lumbar spondylosis. PROCEDURE: Lumbar epidural steroid injection, translaminar approach L4-L5 level using C-arm fluoroscopic guidance under sterile prep and drape using local anesthetic. MEDICATION INJECTED: A total of 120 mg Depo-Medrol plus 10 mL of preservative-free normal saline and 2 mL of contrast. CONDITION AT DISCHARGE: Stable. The patient tolerated the procedure well, had no complications. JOSR KERR MD DR: BRAULIO/jo JOB#: [id number] / [id number]
== END ==
LOC: PNCL 07:50
PROVIDERS: ATTEND Anesthesiology
DX: M51.16 Intervertebral disc disorders with radiculopathy, lumbar region (principal); M47.816 Spondylosis without myelopathy or radiculopathy, lumbar region
CPT/HCPCS: 62321; J1030; J1040; Q9966

== ENCOUNTER → 2020-11-13 | Outpatient (CLI) | payer OTHER ==
[2015-05-21 08:10] VITALS: BP 130/61
[~2020-11-13] MED LIST changes: -IOHEXOL 240 MG/ML 50ML VIAL. ONE; -methylPREDNISolone ACETATE 40 MG/ML VIAL. ONE; -methylPREDNISolone ACETATE 80 MG/ML VIAL. ONE
--- NOTE | 2020-11-13 14:14 | KCIC ---
Bilateral digital screening mammograms: Reason for examination: Routine screening. Comparison is made to previous study dated 09/29/2018. Interpretation is made with the benefit of CAD. The skin and nipples show no abnormalities. No abnormal lymph nodes are seen. The breast parenchyma i s predominantly fatty. (Breast density: Category A.) There are small nodular parenchymal densities ag ain seen bilaterally which are unchanged. There are no new dominant masses, suspicious calcifications or architectural distortions. Impression: No evidence of malignancy. Recommend routine screening. BI-RADS Category 2: Benign. "Our facility is accredited by the [employer] Mammography [employer]." This patient's information has been entered into a reminder system for the patient to be notified wit h the results of her examination and a target date for the next mammogram. Electronically signed by: Lisa Parham MD (11/13/2020 2:12 PM) [id number]
== END ==
LOC: KCIC MAMMO 12:50
PROVIDERS: ATTEND Family Medicine
DX: Z12.31 Encounter for screening mammogram for malignant neoplasm of breast (principal)
CPT/HCPCS: 77067

== ENCOUNTER → 2020-12-01 | Outpatient (CLI) | payer OTHER ==
[2015-05-21 08:10] VITALS: BP 130/61
--- NOTE | 2020-12-01 08:17 | RAD ---
EXAM: Abdomen sonogram. HISTORY: Pain. TECHNIQUE: Sonographic imaging of the abdomen was performed. COMPARISON: None. FINDINGS: The liver is enlarged. No focal hepatic lesion is seen. The gallbladder surgically absent. The common bile duct is normal in caliber. The kidneys are normal in size. There is no hydronephrosis . No solid or cystic renal lesion is seen. The spleen is mildly enlarged, measuring 13.6 cm in maximu m dimension. The pancreas is obscured due to bowel gas. The aorta is normal in caliber. The inferior vena cava patent. IMPRESSION: 1. Hepatosplenomegaly. 2. Cholecystectomy. 3. Obscured pancreas due to bowel gas. Electronically signed by: Johanna Laboy MD (12/01/2020 8:15 AM) [id number]
== END ==
LOC: US 06:50
PROVIDERS: ATTEND Family Medicine
DX: R16.2 Hepatomegaly with splenomegaly, not elsewhere classified (principal); Z90.49 Acquired absence of other specified parts of digestive tract
CPT/HCPCS: 76700

== ENCOUNTER 2020-12-05 08:31 | Inpatient (IN) | payer OTHER, MEDICARE ==
[~2020-12-05] VITALS: Ht 165.1 cm; Wt 101.4 kg
[~2020-12-05 08:31] MED LIST changes: +LISI10TA16 PO; -LISI10TA2 PO; +SERT-268 PO; -SERT100T8 PO
[2020-12-05 09:15] LABS: CALCIUM 9.7 mg/dL (8.5-10.1); CREATININE 0.8 mg/dL (0.6-1.0); POTASSIUM 4.7 mmol/L (3.5-5.1)
[2020-12-05] MEDS ORDERED: IOHEXOL 300 MG/ML 100ML VIAL. IV ONE (09:15)
[2020-12-05] MEDS ORDERED: CONTRAST GIVEN. MC PRN (09:15)
[2020-12-05 09:20] LABS: BILIRUBIN,URINE LARGE (NEG); CLARITY,URINE CLEAR; COLOR,URINE ORANGE; NITRITE,URINE POSITIVE (NEG); PH,URINE 5.5 (<5.0-8.0); PROTEIN,URINE 100 mg/dL (NEG-TRACE)
[2020-12-05 09:22] LABS: ALBUMIN 2.8 g/dL (3.4-5.0); ALBUMIN/GLOBULIN RATIO 0.5 (1.0-1.7); TOTAL BILIRUBIN 11.5 mg/dL (0.2-1.0); TOTAL PROTEIN 8.7 g/dL (6.4-8.2)
[2020-12-05 09:25] LABS: BASO # 0.1 x10^3/uL (0.0-0.2); BASO % 1 % (0-3); EOS % 0 % (0-3); HEMATOCRIT 35.6 % (36.0-47.0); HEMOGLOBIN 11.3 g/dL (12.0-15.5); LYMPH # 4.6 x10^3/uL (1.0-4.8); LYMPH % 49 % (24-48); MEAN CORPUSCULAR HEMOGLOBIN 29 pg (25-35); MEAN CORPUSCULAR HGB CONC 32 g/dL (31-37); MEAN CORPUSCULAR VOLUME 91 fL (79-100); MONO # 1.1 x10^3/uL (0.0-1.1); MONO % 11 % (0-9); NEUT # 3.6 x10^3/uL (1.8-7.7); NEUT % 38 % (31-73); PLATELET COUNT 361 x10^3/uL (140-400); RED BLOOD COUNT 3.91 x10^6/uL (3.50-5.40); RED CELL DISTRIBUTION WIDTH 22.9 % (11.5-14.5); WHITE BLOOD COUNT 9.4 x10^3/uL (4.0-11.0)
--- NOTE | 2020-12-05 10:03 | RAD ---
ADDENDUM #1 Addendum: Note is made that the aforementioned findings within the pancreatic tail may also be too sc arring from prior pancreatitis. No convincing mass lesion is seen in this location. Correlate with pa ncreatic enzyme laboratory values and a CA-19-9 tumor marker level. Once again, MRI/MRCP may be usefu l for characterization. Electronically signed by: Johanna Laboy MD (12/05/2020 10:08 AM) [id number] ORIGINAL REPORT EXAM: Abdomen CT without and with intravenous contrast. HISTORY: Pain and jaundice. TECHNIQUE: Computed tomographic images of the abdomen were obtained prior to and following the admini stration of intravenous contrast. Multiplanar reformatting was performed. *One or more of the following individualized dose reduction techniques were utilized for this examina tion: 1. Automated exposure control. 2. Adjustment of the mA and/or kV according to patient size. 3. Use of iterative reconstruction technique. COMPARISON: None. FINDINGS: Evaluation of the lower thorax demonstrates no pleural effusion. There is a calcified granu cornelia within the left lung base. There is a 2 mm nodule within the lateral left lower lobe, likely jass ign based on size. There is mild bilateral mid and lower lung air trapping and atelectasis. The heart is normal in size. There is calcified atherosclerotic plaque involving the coronary arteries. There is calcification of the aortic valve. There is intrahepatic and extra hepatic biliary ductal dilatation, with abrupt cutoff of a distended common bile duct slightly proximal to the expected location of the ampulla. The common bile duct amanda ures approximately 3.2 cm in caliber. There is a 2.2 cm simple appearing cyst within the anterior rig ht hepatic lobe. There is hepatic surface nodularity likely due to cirrhosis. The gallbladder is surg ically absent. The spleen is enlarged, measuring 15.2 cm in maximum transaxial dimension. There is irregular pancrea tic ductal dilatation and there are pancreatic calcifications consistent with chronic pancreatitis. T here is a 1.8 cm fluid density lesion within the pancreatic neck, possibly due to a pseudocyst or cys tic neoplasm such as an intraductal papillary mucinous neoplasm. There is fatty stranding surrounding the pancreatic tail which extends to the splenic hilum. There is a vague region of hypodensity assoc iated with the pancreatic tail that are approximately 4.0 cm on coronal images. There are enlarged pe ripancreatic and periportal lymph nodes. There is slight nodularity of the adrenal glands, possibly due to small adrenal adenomas. There is bi lateral renal cortical scarring. There is bilateral nephrolithiasis. The largest renal stone measures 4 mm. There is no hydronephrosis or solid renal lesion. There is no bowel obstruction. There is colo juani wall thickening likely due to relative under distention. There are few colonic diverticula within the [id number]. There is heavily calcified atherosclerotic plaque involving the aorta and main aortic branch vessels. This results in stenosis of the origins of the superior mesenteric artery and renal arteries, not fo rmally assessed on this exam. There are degenerative changes throughout the spine. There is multileve l listhesis. There is no acute osseous finding. There are few benign bone islands. IMPRESSION: 1. Intrahepatic and extra hepatic biliary ductal dilatation with abrupt cut off of a dilated common b ile duct slightly proximal to the ampulla. This may be due to a stricture or occult obstructing lesio n. Tissue sampling with endoscopic ultrasound can be performed. MRCP may also be useful for further c haracterization. 2. Chronic pancreatitis with associated pancreatic calcifications and irregular pancreatic ductal dil atation. There is a 1.8 cm cystic lesion within the pancreatic neck which may be a pseudocyst or cyst ic neoplasm such as an intraductal papillary mucinous neoplasm. 3. Fatty stranding surrounding the pancreatic tail and relative hypodensity of the pancreatic tail fa voring acute pancreatitis or underlying mass. 4. Hepatic cirrhosis and splenomegaly due to portal hypertension. 5. Bilateral renal cortical scarring and nephrolithiasis. Electronically signed by: Johanna Laboy MD (12/05/2020 10:00 AM) [id number]
[2020-12-05 10:06] LABS: HYALINE CASTS, URINE MODERATE /HPF
[2020-12-05 10:08] LABS: BACTERIA,URINE FEW /HPF (0-FEW); RBC,URINE 0 /HPF (0-2); YEAST,URINE PRESENT /HPF
[2020-12-05] MEDS ORDERED: PIP/TAZO PER PHARMACY MC PRN (10:45)
[2020-12-05] MEDS ORDERED: PIPERACILLIN/TAZOBACTAM 3.375 GM in IV NORMAL SALINE 50ML 50 ML IV ONE (10:45)
[2020-12-05] MEDS ORDERED: fentaNYL PF VIAL 100 MCG/2 ML VIAL ONE (10:52)
[2020-12-05] MEDS ORDERED: MAG HYDROX/ALUMINUM HYD/SIMETH 30 ML ORAL.SUSP PO PRN (11:00)
[2020-12-05] MEDS ORDERED: fentaNYL PF VIAL 100 MCG/2 ML VIAL IV PRN (11:00)
[2020-12-05] MEDS ORDERED: LACTULOSE 20 GM/30 ML SOLUTION. PO PRN (11:00)
[2020-12-05] MEDS ORDERED: ELECTROLYTE (NON-ICU) PROTOCOL. MC PRN (11:00)
[2020-12-05] MEDS ORDERED: VANCOMYCIN 2 GM in IV NORMAL SALINE 500ML BAG 500 ML IV ONE (11:00)
[2020-12-05] MEDS ORDERED: ZOLPIDEM 5 MG TABLET. PO PRN (11:00)
[2020-12-05] MEDS ORDERED: IV NORMAL SALINE 1000ML BAG 1,000 ML IV SCH (11:00)
[2020-12-05 11:18] LABS: % BANDS 4 % (0-9); % LYMPHS 9 % (24-48); % MONOS 6 % (0-10); % SEGS 81 % (35-66)
[2020-12-05 11:20] LABS: ANISOCYTOSIS PRESENT; PLT ESTIMATE ADEQUATE (ADEQUATE)
[2020-12-05] MEDS: IV RINGERS,LACTATED 1000ML 1,000 ML IV SCH ×2 (11:36→20:08)
--- NOTE | 2020-12-05 11:38 | PHYS DOC ---
Past Medical History Past Medical History: Diabetes-Type II, Hypothyroid Past Surgical History: Cholecystectomy, Smoking Status: Never Smoker Alcohol Use: None General Adult EDM: Chief Complaint: ABDOMINAL PAIN HPI: HPI: This is a pleasant 65-year-old female presenting the emergency department today with abdominal pain for the past 2 months which has recently gotten worse over the past week. She followed up with her primary doctor and a GI doctor Dr. Escobar trying to get a CT because of worsening jaundice. Her pain is sharp shooting moderate intermittent worse with eating and without alleviating factor s. Her skin changes have been occurring over the past week or two. She has had some nausea. She has had a few episodes of nonbilious nonbloody vomiting. She denies blood in her stool. Review of systems negative for chest pain shortness of breath fevers chills headache. All other review of systems negative. ED course: 65-year-old female presenting with abdominal pain and jaundice. Patient is afebrile. Satting well on room air. Heart rate within normal limits. Lab work-up shows a normal white blood cell count. Hemoglobin 11.3. Hyponatremia of 129. LFTs are elevated along with a bilirubin 11.5. Lipase is 5700. Urine shows urinary tract infection. CT abdomen pelvis shows biliary ductal dilatation with possible stricture or occult obstructing lesion. Chronic pancreatitis present. 1.8 cm cystic lesion present in the pancreatic neck. I spoke with GI and the hospitalist team. Will admit the patient for an ERCP and further treatment and care. Patient was given IV broad-spectrum antibiotics for her urinary tract infection and possible developing infection in her biliary t ract. Hospitalist accepts the patient for admission. Heart Score: Risk Factors: Risk Factors: DM, Current or recent (<one month) smoker, HTN, HLP, family history of CAD, obesity. Risk Scores: Score 0 - 3: 2.5% MACE over next 6 weeks - Discharge Home Score 4 - 6: 20.3% MACE over next 6 weeks - Admit for Clinical Observation Score 7 - 10: 72.7% MACE over next 6 weeks - Early Invasive Strategies Current Medications: Current Medications Medications (Trade) Dose Ordered Sig/Lulú Start Time Stop Time Status Last Admin Dose Admin Al Hydroxide/Mg Hydroxide (Mylanta Plus Xs) 30 ml PRN Q3HRS PRN 12/05/20 11:00 Docusate Sodium (Colace) 100 mg BID 12/05/20 21:00 Fentanyl Citrate (Fentanyl 2ml Vial) 100 mcg STK-MED ONCE 12/05/20 10:52 12/05/20 10:52 DC Heparin Sodium (Porcine) (Heparin Sodium) 5,000 unit Q12HR 12/05/20 21:00 Info (CONTRAST GIVEN -- Rx MONITORING) 1 each PRN DAILY PRN 12/05/20 09:15 12/07/20 09:14 Info (Non-Icu Electrolyte Protocol) 1 ea PRN DAILY PRN 12/05/20 11:00 Iohexol (Omnipaque 300 Mg/ml) 75 ml 1X ONCE 12/05/20 09:15 12/05/20 09:16 DC 12/05/20 09:30 75 ML Lactulose (Lactulose) 20 gm PRN Q12HR PRN 12/05/20 11:00 Morphine Sulfate (Morphine Sulfate) 2 mg PRN Q1HR PRN 12/05/20 11:00 Ondansetron HCl (Zofran) 4 mg PRN Q6HRS PRN 12/05/20 11:00 Oxycodone/ Acetaminophen (Percocet 5/325) 1 tab PRN Q4HRS PRN 12/05/20 11:00 Piperacillin Sod/ Tazobactam Sod (Zosyn Per Pharmacy) 1 each PRN DAILY PRN 12/05/20 10:45 UNV Piperacillin Sod/ Tazobactam Sod 3.375 gm/Sodium Chloride 50 ml @ 100 mls/hr 1X ONCE 12/05/20 10:45 12/05/20 11:14 DC 12/05/20 10:57 100 MLS/HR Ringer's Solution 1,000 ml @ 100 mls/hr Q10H 12/05/20 11:00 12/05/20 11:36 100 MLS/HR Senna/Docusate Sodium (Senna Plus) 1 tab BID 12/05/20 21:00 Sodium Chloride 1,000 ml @ 100 mls/hr Q10H 12/05/20 11:00 12/05/20 14:59 Vancomycin HCl (Vanco Per Pharmacy) 1 each PRN DAILY PRN 12/05/20 10:45 UNV Vancomycin HCl 2 gm/Sodium Chloride 500 ml @ 250 mls/hr 1X ONCE 12/05/20 11:00 12/05/20 12:59 12/05/20 11:35 250 MLS/HR Zolpidem Tartrate (Ambien) 5 mg PRN QHS PRN 12/05/20 11:00 Allergies: Allergies: Allergies Coded Allergies Type Severity Reaction Last Updated Verified Sulfa (Sulfonamide Antibiotics) Allergy Intermediate 10/12/15 Yes aspirin Allergy Intermediate "PASSES OUT" 05/21/15 Yes hydromorphone Allergy Intermediate Itching 05/21/15 Yes Physical Exam: PE: Constitutional: Well developed, well nourished, no acute distress, non-toxic jerardo earance. [] HENT: Normocephalic, atraumatic, bilateral external ears normal, oropharynx moist, no oral exudates, nose normal. [] Eyes: PERRLA, EOMI, conjunctiva jaundice without erythema, no discharge. [] Neck: Normal range of motion, no tenderness, supple, no stridor. [] Cardiovascular:Heart rate regular rhythm, no murmur [] Lungs & Thorax: Bilateral breath sounds clear to auscultation [] Abdomen: Bowel sounds normal, soft, mild generalized tenderness without a focus. no masses, no pulsatile masses. Mildly distended. Skin: Warm, dry, no erythema, no rash. [] Patient is generally jaundice. Back: No tenderness, no CVA tenderness. [] Extremities: No tenderness, no cyanosis, no clubbing, ROM intact, no edema. [] Neurologic: Alert and oriented X 3, normal motor function, normal sensory function, no focal deficits noted. [] Psychologic: Affect normal, judgement normal, mood normal. [] Current Patient Data: Labs: Laboratory Tests Test 12/05/20 08:53 White Blood Count 9.4 x10^3/uL (4.0-11.0) Red Blood Count 3.91 x10^6/uL (3.50-5.40) Hemoglobin 11.3 g/dL (12.0-15.5) L Hematocrit 35.6 % (36.0-47.0) L Mean Corpuscular Volume 91 fL (79-100) Mean Corpuscular Hemoglobin 29 pg (25-35) Mean Corpuscular Hemoglobin Concent 32 g/dL (31-37) Red Cell Distribution Width 22.9 % (11.5-14.5) H Platelet Count 361 x10^3/uL (140-400) Neutrophils (%) (Auto) 38 % (31-73) Lymphocytes (%) (Auto) 49 % (24-48) H Monocytes (%) (Auto) 11 % (0-9) H Eosinophils (%) (Auto) 0 % (0-3) Basophils (%) (Auto) 1 % (0-3) Neutrophils # (Auto) 3.6 x10^3/uL (1.8-7.7) Lymphocytes # (Auto) 4.6 x10^3/uL (1.0-4.8) Monocytes # (Auto) 1.1 x10^3/uL (0.0-1.1) Eosinophils # (Auto) 0.0 x10^3/uL (0.0-0.7) Basophils # (Auto) 0.1 x10^3/uL (0.0-0.2) Segmented Neutrophils % 81 % (35-66) H Band Neutrophils % 4 % (0-9) Lymphocytes % 9 % (24-48) L Monocytes % 6 % (0-10) Platelet Estimate Adequate (ADEQUATE) Large Platelets Few Giant Platelets Few Anisocytosis Present Urine Collection Type Unknown Urine Color [place] Urine Clarity Clear Urine pH 5.5 (<5.0-8.0) Urine Specific [place] >=1.030 (1.000-1.030) Urine Protein 100 mg/dL (NEG-TRACE) Urine Glucose (UA) >=1000 mg/dL (NEG) Urine Ketones (Stick) 15 mg/dL (NEG) Urine Blood Negative (NEG) Urine Nitrite Positive (NEG) Urine Bilirubin Large (NEG) Urine Urobilinogen Dipstick 1.0 mg/dL (0.2 mg/dL) Urine Leukocyte Esterase Small (NEG) Urine RBC 0 /HPF (0-2) Urine WBC 5-10 /HPF (0-4) Urine Squamous Epithelial Cells Mod /LPF Urine Bacteria Few /HPF (0-FEW) Urine Hyaline Casts Moderate /HPF Urine Mucus Mod /LPF Urine Yeast Present /HPF Sodium Level 129 mmol/L (136-145) L Potassium Level 4.7 mmol/L (3.5-5.1) Chloride Level 95 mmol/L (98-107) L Carbon Dioxide Level 23 mmol/L (21-32) Anion Gap 11 (6-14) Blood Urea Nitrogen 15 mg/dL (7-20) Creatinine 0.8 mg/dL (0.6-1.0) Estimated GFR (Cockcroft-Gault) 72.0 BUN/Creatinine Ratio 19 (6-20) Glucose Level 292 mg/dL (70-99) H Calcium Level 9.7 mg/dL (8.5-10.1) Total Bilirubin 11.5 mg/dL (0.2-1.0) H Aspartate Amino Transferase (AST) 199 U/L (15-37) H Alanine Aminotransferase (ALT) 111 U/L (14-59) H Alkaline Phosphatase 518 U/L (46-116) H Ammonia 19 mcmol/L (11-34) Total Protein 8.7 g/dL (6.4-8.2) H Albumin 2.8 g/dL (3.4-5.0) L Albumin/Globulin Ratio 0.5 (1.0-1.7) L Lipase 5708 U/L (73-393) H Laboratory Tests 12/05/20 08:53 Laboratory Tests 12/05/20 08:53 Vital Signs: Vital Signs Date Time Temp Pulse Resp B/P (MAP) Pulse Ox O2 Delivery O2 Flow Rate FiO2 12/05/20 10:56 18 99 Room Air 12/05/20 09:40 145/60 (88) 12/05/20 09:14 86 12/05/20 08:58 98.0 98.0 EKG: EKG: [] Radiology/Procedures: Radiology/Procedures: [] Course & Med Decision Making: Course & Med Decision Making Pertinent Labs and Imaging studies reviewed. (See chart for details) [] Dragon Disclaimer: Dragon Disclaimer: This electronic medical record was generated, in whole or in part, using a voice recognition dictation system. Departure Departure Impression: Primary Impression: Hyperbilirubinemia Additional Impressions: Pancreatitis Common bile duct dilatation Disposition: 09 ADMITTED INPT THIS HOSP Admitting Physician: HIMLouisa Condition: STABLE Referrals: TRAVON QURESHI MD (PCP) SIN MUÑIZ MD Dec 05, 2020 11:38
--- NOTE | 2020-12-05 12:05 | PDOC2 ---
GI CONSULT Date of Service: DATE: 12/05/20 TIME: 12:04 Reason For Consult: biliary ductal dilatation HPI: HPI: 65 y/o female seen in ER. Previously d/w Dr. Pacheco, ER physician. Pt reports a couple months of abdominal discomfort (first says epigastric and RUQ - later says LLQ) w/ pain in mid back. Associated w/ decreased appetite, vomiting "phlegm," pasty brown stools that "float on top," and 15 pound unintentional weight loss. Saw Dr. Monterroso in clinic yesterday for same symptoms w/ elevated LFTs. Advised to have CT and interval labs - for some reason unable to do CT as outpt - came to ER instead. Labs and imaging here as below. EGD and colonoscopy 06/[address] Monterroso for anemia showed normal esophagus, gastritis, normal duodenum, sigmoid diverticulosis, and uncomplicated internal hemorrhoids. H/o GERD on Prilosec. No dysphagia, hematemesis, diarrhea, constipation, hematochezia, or melena. No pruritus. S/p cholecystectomy ~10 years ago @ [facility]. Describes having pancreatitis at that time - assuming gallstones. No liver or PUD history. PRN ibuprofen, daily iron, also Plavix for "calcium deposit in leg." PMH: PMH: DM, hypothyroidism, GERD, nephrolithiasis cholecystectomy, left breast cyst removal, left salpingo-oophorectomy, x 2, D&C FH: Family History: No pertinent hx (denies GI cancers), DM, Hypertension Social History: Smoke: Quit ALCOHOL: none Drugs: None ROS: GEN: Denies fevers, chills, sweats HEENT: Denies blurred vision, sore throat CV: Denies chest pain RESP: Denies shortness of air, cough GI: Per HPI : Denies hematuria, dysuria ENDO: Denies weight changes NEURO: Denies confusion, dizziness MSK: Denies weakness, joint pain/swelling SKIN: +jaundice Vitals: Vitals: Vital Signs Date Time Temp Pulse Resp B/P (MAP) Pulse Ox O2 Delivery O2 Flow Rate FiO2 12/05/20 10:56 18 99 Room Air 12/05/20 09:40 145/60 (88) 12/05/20 09:14 86 12/05/20 08:58 98.0 98.0 Labs: Labs: Laboratory Tests Test 12/05/20 08:53 White Blood Count 9.4 x10^3/uL (4.0-11.0) Red Blood Count 3.91 x10^6/uL (3.50-5.40) Hemoglobin 11.3 g/dL (12.0-15.5) Hematocrit 35.6 % (36.0-47.0) Mean Corpuscular Volume 91 fL (79-100) Mean Corpuscular Hemoglobin 29 pg (25-35) Mean Corpuscular Hemoglobin Concent 32 g/dL (31-37) Red Cell Distribution Width 22.9 % (11.5-14.5) Platelet Count 361 x10^3/uL (140-400) Neutrophils (%) (Auto) 38 % (31-73) Lymphocytes (%) (Auto) 49 % (24-48) Monocytes (%) (Auto) 11 % (0-9) Eosinophils (%) (Auto) 0 % (0-3) Basophils (%) (Auto) 1 % (0-3) Neutrophils # (Auto) 3.6 x10^3/uL (1.8-7.7) Lymphocytes # (Auto) 4.6 x10^3/uL (1.0-4.8) Monocytes # (Auto) 1.1 x10^3/uL (0.0-1.1) Eosinophils # (Auto) 0.0 x10^3/uL (0.0-0.7) Basophils # (Auto) 0.1 x10^3/uL (0.0-0.2) Segmented Neutrophils % 81 % (35-66) Band Neutrophils % 4 % (0-9) Lymphocytes % 9 % (24-48) Monocytes % 6 % (0-10) Platelet Estimate Adequate (ADEQUATE) Large Platelets Few Giant Platelets Few Anisocytosis Present Urine Collection Type Unknown Urine Color [place] Urine Clarity Clear Urine pH 5.5 (<5.0-8.0) Urine Specific [place] >=1.030 (1.000-1.030) Urine Protein 100 mg/dL (NEG-TRACE) Urine Glucose (UA) >=1000 mg/dL (NEG) Urine Ketones (Stick) 15 mg/dL (NEG) Urine Blood Negative (NEG) Urine Nitrite Positive (NEG) Urine Bilirubin Large (NEG) Urine Urobilinogen Dipstick 1.0 mg/dL (0.2 mg/dL) Urine Leukocyte Esterase Small (NEG) Urine RBC 0 /HPF (0-2) Urine WBC 5-10 /HPF (0-4) Urine Squamous Epithelial Cells Mod /LPF Urine Bacteria Few /HPF (0-FEW) Urine Hyaline Casts Moderate /HPF Urine Mucus Mod /LPF Urine Yeast Present /HPF Sodium Level 129 mmol/L (136-145) Potassium Level 4.7 mmol/L (3.5-5.1) Chloride Level 95 mmol/L (98-107) Carbon Dioxide Level 23 mmol/L (21-32) Anion Gap 11 (6-14) Blood Urea Nitrogen 15 mg/dL (7-20) Creatinine 0.8 mg/dL (0.6-1.0) Estimated GFR (Cockcroft-Gault) 72.0 BUN/Creatinine Ratio 19 (6-20) Glucose Level 292 mg/dL (70-99) Calcium Level 9.7 mg/dL (8.5-10.1) Total Bilirubin 11.5 mg/dL (0.2-1.0) Aspartate Amino Transf (AST/SGOT) 199 U/L (15-37) Alanine Aminotransferase (ALT/SGPT) 111 U/L (14-59) Alkaline Phosphatase 518 U/L (46-116) Ammonia 19 mcmol/L (11-34) Total Protein 8.7 g/dL (6.4-8.2) Albumin 2.8 g/dL (3.4-5.0) Albumin/Globulin Ratio 0.5 (1.0-1.7) Lipase 5708 U/L (73-393) Allergies: Coded Allergies: Sulfa (Sulfonamide Antibiotics) (Verified Allergy, Intermediate, 10/12/15) aspirin (Verified Allergy, Intermediate, "PASSES OUT", 05/21/15) STATES SHE PASSES OUT IF SHE GETS TOO MUCH ASPIRIN IN HER BODY hydromorphone (Verified Allergy, Intermediate, Itching, 05/21/15) Medications: Current Medications Medications (Trade) Dose Ordered Sig/Lulú Route PRN Reason Start Time Stop Time Status Last Admin Dose Admin Iohexol (Omnipaque 300 Mg/ml) 75 ml 1X ONCE IV 12/05/20 09:15 12/05/20 09:16 DC 12/05/20 09:30 Vancomycin HCl 2 gm/Sodium Chloride 500 ml @ 250 mls/hr 1X ONCE IV 12/05/20 11:00 12/05/20 12:59 12/05/20 11:35 Piperacillin Sod/ Tazobactam Sod 3.375 gm/Sodium Chloride 50 ml @ 100 mls/hr 1X ONCE IV 12/05/20 10:45 12/05/20 11:14 DC 12/05/20 10:57 Fentanyl Citrate (Fentanyl 2ml Vial) 50 mcg PRN Q30MIN PRN IV SEVERE PAIN 7-10 12/05/20 11:00 12/05/20 10:56 Ringer's Solution 1,000 ml @ 100 mls/hr Q10H IV 12/05/20 11:00 12/05/20 11:36 Imaging: Imaging: Abd US 12/01/20 FINDINGS: The liver is enlarged. No focal hepatic lesion is seen. The gallbladder surgically absent. The common bile duct is normal in caliber. The kidneys are normal in size. There is no hydronephrosis. No solid or cystic renal lesion is seen. The spleen is mildly enlarged, measuring 13.6 cm in maximum dimension. The pancreas is obscured due to bowel gas. The aorta is normal in caliber. The inferior vena cava patent. IMPRESSION: 1. Hepatosplenomegaly. 2. Cholecystectomy. 3. Obscured pancreas due to bowel gas. CT A/P 12/05 FINDINGS: Evaluation of the lower thorax demonstrates no pleural effusion. There is a calcified granuloma within the left lung base. There is a 2 mm nodule within the lateral left lower lobe, likely benign based on size. There is mild bilateral mid and lower lung air trapping and atelectasis. The heart is normal in size. There is calcified atherosclerotic plaque involving the coronary arteries. There is calcification of the aortic valve. There is intrahepatic and extra hepatic biliary ductal dilatation, with abrupt cutoff of a distended common bile duct slightly proximal to the expected location of the ampulla. The common bile duct measures approximately 3.2 cm in caliber. There is a 2.2 cm simple appearing cyst within the anterior right hepatic lobe. There is hepatic surface nodularity likely due to cirrhosis. The gallbladder is surgically absent. The spleen is enlarged, measuring 15.2 cm in maximum transaxial dimension. There is irregular pancreatic ductal dilatation and there are pancreatic calcifications consistent with chronic pancreatitis. There is a 1.8 cm fluid density lesion within the pancreatic neck, possibly due to a pseudocyst or cystic neoplasm such as an intraductal papillary mucinous neoplasm. There is fatty stranding surrounding the pancreatic tail which extends to the splenic hilum. There is a vague region of hypodensity associated with the pancreatic tail that are approximately 4.0 cm on coronal images. There are enlarged peripancreatic and periportal lymph nodes. There is slight nodularity of the adrenal glands, possibly due to small adrenal adenomas. There is bilateral renal cortical scarring. There is bilateral nephrolithiasis. The largest renal stone measures 4 mm. There is no hydronephrosis or solid renal lesion. There is no bowel obstruction. There is colonic wall thickening likely due to relative under distention. There are few colonic diverticula within the smloh-oe-vpol. There is heavily calcified atherosclerotic plaque involving the aorta and main aortic branch vessels. This results in stenosis of the origins of the superior mesenteric artery and renal arteries, not formally assessed on this exam. There are degenerative changes throughout the spine. There is multilevel listhesis. There is no acute osseous finding. There are few benign bone islands. IMPRESSION: 1. Intrahepatic and extra hepatic biliary ductal dilatation with abrupt cut off of a dilated common bile duct slightly proximal to the ampulla. This may be due to a stricture or occult obstructing lesion. Tissue sampling with endoscopic ultrasound can be performed. MRCP may also be useful for further characterization. 2. Chronic pancreatitis with associated pancreatic calcifications and irregular pancreatic ductal dilatation. There is a 1.8 cm cystic lesion within the pancreatic neck which may be a pseudocyst or cystic neoplasm such as an intraductal papillary mucinous neoplasm. 3. Fatty stranding surrounding the pancreatic tail and relative hypodensity of the pancreatic tail favoring acute pancreatitis or underlying mass. 4. Hepatic cirrhosis and splenomegaly due to portal hypertension. 5. Bilateral renal cortical scarring and nephrolithiasis. PE: GEN: NAD HEENT: Atraumatic, PERRL LUNGS: CTAB HEART: RRR ABD: large/round, soft, mild/vague LLQ tenderness on exam EXTREMITY: No edema SKIN: +jaundice NEURO/PSYCH: A & O 3 A/P: A/P: Abd/back pain, vomiting, weight loss, jaundice Anemia (chronic - on iron), elevated LFTs, elevated lipase, ?UTI Abnormal CT - intrahepatic and extra hepatic biliary ductal dilatation with abrupt cut off dilated CBD proximal to the ampulla, chronic pancreatitis and irregular pancreatic ductal dilation, 1.8cm cystic lesion within the pancreatic neck, fatty stranding surrounding pancreatic tail, cirrhosis and splenomegaly GERD - on PPI CRC screen - UTD Diverticulosis, hemorrhoids S/p cholecystectomy H/o gallstone pancreatitis -- Reviewed w/ Dr. Monterroso. NPO for now. Agree w/ IVF and atbx. Hold Plavix. Will check INR and recheck labs tomorrow morning. Consider ERCP - would need COVID test. TAJ SHAH Dec 05, 2020 12:04
[2020-12-05 13:03] LABS: PROTHROMBIN TIME PATIENT 19.4 SEC (11.7-14.0)
[2020-12-05 13:53] VITALS: BP 139/57
[2020-12-05] MEDS: VANCOMYCIN PER PHARMACY MC PRN (14:18)
--- NOTE | 2020-12-05 14:19 | NUR ---
Pharmacy Vancomycin Dosing Note S:Consulted to monitor and dose vancomycin started 12/05/20. O:PHYLLIS LEMON is a 65 year old F with Empiric . Height: 5 feet, 5 inches Weight: 86.0 kg [place] Body Weight: 57.00 Adjusted Body Weight: 68.60 Dosing Weight: Actual Other Antibiotics: zosyn LABS: Last BUN: 15 Last Creatinine: 0.8 Creatinine Clearance: 61 mL/min Last WBC: 9.4 Last Procalcitonin: Tmax (past 24 hours): 98 Microbiology: I/O: Drug Levels: Last level: on at Last dose given 12/05/20 at 1135 Vancomycin Dosing: Loading Dose: 2000 mg x1 Dosing Weight: Actual Target Trough: 10-20 A: Based on: weight and renal function, vancomycin 2gm iv bolus given, P: 1. Begin Vancomycin 1250 mg IV q12h tonight. 2. Follow up Trough level on 12/06/20 at 2300 3. Pharmacy will continue to monitor, follow and adjust therapy as needed. KULDEEP BAUER [place], 12/05/20 [id number]
[2020-12-05 15:00] VITALS: BP 141/62
[2020-12-05] MEDS: MORPHINE SULFATE 2 MG/ML VIAL. IV PRN ×2 (16:25→23:28)
--- NOTE | 2020-12-05 17:43 | PDOC1 ---
History and Physical Date of Admission Date of Admission 12/05/20 Identification/Chief Complaint Chief Complaint My stomach hurts Source Source: Chart review, Patient History of Present Illness History of Present Illness 65-year-old female with past medical history of diabetes mellitus type 2 hypothyroidism nephrolithiasis and GERD who was in her usual state of health until approximately 1 month prior to her admission when she started noticing epigastric pain which subsequently has migrated to quadrant pain. Patient also has radiation to the mid back and she has had decrease in appetite with subsequent 15 pound weight loss. The patient says that she was not hungry at all in had bouts of excessive salivation nausea and vomiting of clear liquid mostly sputum. Patient was seen in the outpatient setting and was in the process of being worked up since the patient was noted to have jaundice. This was noted by her chiropractor last week but due to the progressive nature of her symptoms worsening discomfort she decided to come to the emergency department for further evaluation and treatment. As part of her Imaging work-up she underwent CT of the abdomen with and without contrast with the following impression 1. Intrahepatic and extra hepatic biliary ductal dilatation with abrupt cut off of a dilated common bile duct slightly proximal to the ampulla. This may be due to a stricture or occult obstructing lesion. Tissue sampling with endoscopic ultrasound can be performed. MRCP may also be useful for further characterization. 2. Chronic pancreatitis with associated pancreatic calcifications and irregular pancreatic ductal dilatation. There is a 1.8 cm cystic lesion within the pancreatic neck which may be a pseudocyst or cystic neoplasm such as an intradu ctal papillary mucinous neoplasm. 3. Fatty stranding surrounding the pancreatic tail and relative hypodensity of the pancreatic tail favoring acute pancreatitis or underlying mass. 4. Hepatic cirrhosis and splenomegaly due to portal hypertension. 5. Bilateral renal cortical scarring and nephrolithiasis. She was found to have an elevated lipase and will be admitted for treatment of pancreatitis. GI consultation has been requested as well to evaluate the abnormal findings on CAT scan. Reassurance has been provided plan of care explained in detail and all of her concerns addressed to the best of my abilities greater than 60 minutes were spent in the assessment of the patient counseling coordination of care and formulation of treatment plan Past Medical History Cardiovascular: HTN, Hyperlipidemia Endocrine: Diabetes Past Surgical History Past Surgical History: No pertinent history Family History Family History: No Significant Social History Smoke: No ALCOHOL: none Drugs: None Current Medications Current Medications Current Medications Medications (Trade) Dose Ordered Sig/Lulú Start Time Stop Time Status Last Admin Dose Admin Al Hydroxide/Mg Hydroxide (Mylanta Plus Xs) 30 ml PRN Q3HRS PRN 12/05/20 11:00 Docusate Sodium (Colace) 100 mg BID 12/05/20 21:00 Fentanyl Citrate (Fentanyl 2ml Vial) 100 mcg STK-MED ONCE 12/05/20 10:52 12/05/20 10:52 DC Heparin Sodium (Porcine) (Heparin Sodium) 5,000 unit Q12HR 12/05/20 21:00 Info (CONTRAST GIVEN -- Rx MONITORING) 1 each PRN DAILY PRN 12/05/20 09:15 12/07/20 09:14 Info (Non-Icu Electrolyte Protocol) 1 ea PRN DAILY PRN 12/05/20 11:00 Iohexol (Omnipaque 300 Mg/ml) 75 ml 1X ONCE 12/05/20 09:15 12/05/20 09:16 DC 12/05/20 09:30 75 ML Lactulose (Lactulose) 20 gm PRN Q12HR PRN 12/05/20 11:00 Morphine Sulfate (Morphine Sulfate) 2 mg PRN Q1HR PRN 12/05/20 11:00 12/05/20 16:25 2 MG Ondansetron HCl (Zofran) 4 mg PRN Q6HRS PRN 12/05/20 11:00 Oxycodone/ Acetaminophen (Percocet 5/325) 1 tab PRN Q4HRS PRN 12/05/20 11:00 Pantoprazole Sodium (PROTONIX VIAL for IV PUSH) 40 mg DAILY 12/06/20 07:30 Piperacillin Sod/ Tazobactam Sod (Zosyn Per Pharmacy) 1 each PRN DAILY PRN 12/05/20 10:45 Piperacillin Sod/ Tazobactam Sod 3.375 gm/Sodium Chloride 50 ml @ 100 mls/hr Q6HRS 12/05/20 18:00 Ringer's Solution 1,000 ml @ 100 mls/hr Q10H 12/05/20 11:00 12/05/20 11:36 100 MLS/HR Senna/Docusate Sodium (Senna Plus) 1 tab BID 12/05/20 21:00 Sodium Chloride 1,000 ml @ 100 mls/hr Q10H 12/05/20 11:00 12/05/20 14:59 DC Vancomycin HCl (Vanco Per Pharmacy) 1 each PRN DAILY PRN 12/05/20 10:45 12/05/20 14:18 1 EACH Vancomycin HCl (Vancomycin Trough Level) 1 each 1X ONCE 12/06/20 23:00 12/06/20 23:01 Vancomycin HCl 1.25 gm/Sodium Chloride 250 ml @ 167 mls/hr Q12H 12/05/20 23:30 Vancomycin HCl 2 gm/Sodium Chloride 500 ml @ 250 mls/hr 1X ONCE 12/05/20 11:00 12/05/20 12:59 DC 12/05/20 11:35 250 MLS/HR Zolpidem Tartrate (Ambien) 5 mg PRN QHS PRN 12/05/20 11:00 Allergies Allergies Allergies Coded Allergies Type Severity Reaction Last Updated Verified Sulfa (Sulfonamide Antibiotics) Allergy Intermediate 10/12/15 Yes aspirin Allergy Intermediate "PASSES OUT" 05/21/15 Yes hydromorphone Allergy Intermediate Itching 05/21/15 Yes ROS Review of System CONSTITUTIONAL: No fever or chills EYES: No recent changes SKIN: No rash or itching CARDIOVASCULAR: No chest pain, syncope, palpitations, or edema RESPIRATORY: No SOB or cough GASTROINTESTINAL: No nausea, vomiting or abdominal pain NEUROLOGICAL: No headaches or weakness ENDOCRINE: No cold or heat intolerance GENITOURINARY: No urgency or frequency of urination MUSCULOSKELETAL: No back pain or joint pain LYMPHATICS: No enlarged lymph nodes PSYCHIATRIC: No anxiety or depression Physical Exam Physical Exam Gen.: well-developed well-nourished in no apparent distress Head: Normal shape atraumatic Eyes: Pupils equal reactive to light and accommodation, jaundiced conjunctivae and lids Ears: Normal shape Nose: Normal shape no trauma Mouth: No exudates of the back of throat no thrush no lesions Neck: Supple no JVD no carotid bruit or lymphadenopathy no thyromegaly Chest: Lungs clear to auscultation with good inspiratory effort no crackles rales or rhonchi Cardiovascular: S1-S2 regular rhythm no murmurs gallops or rubs Abdomen: Severe distention and ascitic wave present. No peritoneal signs Extremities: No clubbing no cyanosis no edema peripheral pulses palpated bilaterally Neurological: Alert awake oriented in person time place and situation, cranial n erves II through XII intact, no motor or sensory deficits appreciated Psych: Appropriate mood, cooperative Skin: Jaundice Vitals Vitals Vital Signs Date Time Temp Pulse Resp B/P (MAP) Pulse Ox O2 Delivery O2 Flow Rate FiO2 12/05/20 16:25 Room Air 12/05/20 15:00 98.6 75 17 141/62 (88) 96 98.6 Labs Labs Laboratory Tests Test 12/05/20 08:53 White Blood Count 9.4 x10^3/uL (4.0-11.0) Red Blood Count 3.91 x10^6/uL (3.50-5.40) Hemoglobin 11.3 g/dL (12.0-15.5) Hematocrit 35.6 % (36.0-47.0) Mean Corpuscular Volume 91 fL (79-100) Mean Corpuscular Hemoglobin 29 pg (25-35) Mean Corpuscular Hemoglobin Concent 32 g/dL (31-37) Red Cell Distribution Width 22.9 % (11.5-14.5) Platelet Count 361 x10^3/uL (140-400) Neutrophils (%) (Auto) 38 % (31-73) Lymphocytes (%) (Auto) 49 % (24-48) Monocytes (%) (Auto) 11 % (0-9) Eosinophils (%) (Auto) 0 % (0-3) Basophils (%) (Auto) 1 % (0-3) Neutrophils # (Auto) 3.6 x10^3/uL (1.8-7.7) Lymphocytes # (Auto) 4.6 x10^3/uL (1.0-4.8) Monocytes # (Auto) 1.1 x10^3/uL (0.0-1.1) Eosinophils # (Auto) 0.0 x10^3/uL (0.0-0.7) Basophils # (Auto) 0.1 x10^3/uL (0.0-0.2) Segmented Neutrophils % 81 % (35-66) Band Neutrophils % 4 % (0-9) Lymphocytes % 9 % (24-48) Monocytes % 6 % (0-10) Platelet Estimate Adequate (ADEQUATE) Large Platelets Few Giant Platelets Few Anisocytosis Present Prothrombin Time 19.4 SEC (11.7-14.0) Prothromb Time International Ratio 1.7 (0.8-1.1) Urine Collection Type Unknown Urine Color [place] Urine Clarity Clear Urine pH 5.5 (<5.0-8.0) Urine Specific Adger >=1.030 (1.000-1.030) Urine Protein 100 mg/dL (NEG-TRACE) Urine Glucose (UA) >=1000 mg/dL (NEG) Urine Ketones (Stick) 15 mg/dL (NEG) Urine Blood Negative (NEG) Urine Nitrite Positive (NEG) Urine Bilirubin Large (NEG) Urine Urobilinogen Dipstick 1.0 mg/dL (0.2 mg/dL) Urine Leukocyte Esterase Small (NEG) Urine RBC 0 /HPF (0-2) Urine WBC 5-10 /HPF (0-4) Urine Squamous Epithelial Cells Mod /LPF Urine Bacteria Few /HPF (0-FEW) Urine Hyaline Casts Moderate /HPF Urine Mucus Mod /LPF Urine Yeast Present /HPF Sodium Level 129 mmol/L (136-145) Potassium Level 4.7 mmol/L (3.5-5.1) Chloride Level 95 mmol/L (98-107) Carbon Dioxide Level 23 mmol/L (21-32) Anion Gap 11 (6-14) Blood Urea Nitrogen 15 mg/dL (7-20) Creatinine 0.8 mg/dL (0.6-1.0) Estimated GFR (Cockcroft-Gault) 72.0 BUN/Creatinine Ratio 19 (6-20) Glucose Level 292 mg/dL (70-99) Calcium Level 9.7 mg/dL (8.5-10.1) Total Bilirubin 11.5 mg/dL (0.2-1.0) Aspartate Amino Transf (AST/SGOT) 199 U/L (15-37) Alanine Aminotransferase (ALT/SGPT) 111 U/L (14-59) Alkaline Phosphatase 518 U/L (46-116) Ammonia 19 mcmol/L (11-34) Total Protein 8.7 g/dL (6.4-8.2) Albumin 2.8 g/dL (3.4-5.0) Albumin/Globulin Ratio 0.5 (1.0-1.7) Lipase 5708 U/L (73-393) Laboratory Tests Test 12/05/20 08:53 White Blood Count 9.4 x10^3/uL (4.0-11.0) Red Blood Count 3.91 x10^6/uL (3.50-5.40) Hemoglobin 11.3 g/dL (12.0-15.5) Hematocrit 35.6 % (36.0-47.0) Mean Corpuscular Volume 91 fL (79-100) Mean Corpuscular Hemoglobin 29 pg (25-35) Mean Corpuscular Hemoglobin Concent 32 g/dL (31-37) Red Cell Distribution Width 22.9 % (11.5-14.5) Platelet Count 361 x10^3/uL (140-400) Neutrophils (%) (Auto) 38 % (31-73) Lymphocytes (%) (Auto) 49 % (24-48) Monocytes (%) (Auto) 11 % (0-9) Eosinophils (%) (Auto) 0 % (0-3) Basophils (%) (Auto) 1 % (0-3) Neutrophils # (Auto) 3.6 x10^3/uL (1.8-7.7) Lymphocytes # (Auto) 4.6 x10^3/uL (1.0-4.8) Monocytes # (Auto) 1.1 x10^3/uL (0.0-1.1) Eosinophils # (Auto) 0.0 x10^3/uL (0.0-0.7) Basophils # (Auto) 0.1 x10^3/uL (0.0-0.2) Segmented Neutrophils % 81 % (35-66) Band Neutrophils % 4 % (0-9) Lymphocytes % 9 % (24-48) Monocytes % 6 % (0-10) Platelet Estimate Adequate (ADEQUATE) Large Platelets Few Giant Platelets Few Anisocytosis Present Prothrombin Time 19.4 SEC (11.7-14.0) Prothromb Time International Ratio 1.7 (0.8-1.1) Urine Collection Type Unknown Urine Color [place] Urine Clarity Clear Urine pH 5.5 (<5.0-8.0) Urine Specific Adger >=1.030 (1.000-1.030) Urine Protein 100 mg/dL (NEG-TRACE) Urine Glucose (UA) >=1000 mg/dL (NEG) Urine Ketones (Stick) 15 mg/dL (NEG) Urine Blood Negative (NEG) Urine Nitrite Positive (NEG) Urine Bilirubin Large (NEG) Urine Urobilinogen Dipstick 1.0 mg/dL (0.2 mg/dL) Urine Leukocyte Esterase Small (NEG) Urine RBC 0 /HPF (0-2) Urine WBC 5-10 /HPF (0-4) Urine Squamous Epithelial Cells Mod /LPF Urine Bacteria Few /HPF (0-FEW) Urine Hyaline Casts Moderate /HPF Urine Mucus Mod /LPF Urine Yeast Present /HPF Sodium Level 129 mmol/L (136-145) Potassium Level 4.7 mmol/L (3.5-5.1) Chloride Level 95 mmol/L (98-107) Carbon Dioxide Level 23 mmol/L (21-32) Anion Gap 11 (6-14) Blood Urea Nitrogen 15 mg/dL (7-20) Creatinine 0.8 mg/dL (0.6-1.0) Estimated GFR (Cockcroft-Gault) 72.0 BUN/Creatinine Ratio 19 (6-20) Glucose Level 292 mg/dL (70-99) Calcium Level 9.7 mg/dL (8.5-10.1) Total Bilirubin 11.5 mg/dL (0.2-1.0) Aspartate Amino Transf (AST/SGOT) 199 U/L (15-37) Alanine Aminotransferase (ALT/SGPT) 111 U/L (14-59) Alkaline Phosphatase 518 U/L (46-116) Ammonia 19 mcmol/L (11-34) Total Protein 8.7 g/dL (6.4-8.2) Albumin 2.8 g/dL (3.4-5.0) Albumin/Globulin Ratio 0.5 (1.0-1.7) Lipase 5708 U/L (73-393) Images Images CT abdomen and pelvis 1. Intrahepatic and extra hepatic biliary ductal dilatation with abrupt cut off of a dilated common bile duct slightly proximal to the ampulla. This may be due to a stricture or occult obstructing lesion. Tissue sampling with endoscopic ultrasound can be performed. MRCP may also be useful for further teo cterization. 2. Chronic pancreatitis with associated pancreatic calcifications and irregular pancreatic ductal dilatation. There is a 1.8 cm cystic lesion within the pancreatic neck which may be a pseudocyst or cystic neoplasm such as an intraductal papillary mucinous neoplasm. 3. Fatty stranding surrounding the pancreatic tail and relative hypodensity of the pancreatic tail favoring acute pancreatitis or underlying mass. 4. Hepatic cirrhosis and splenomegaly due to portal hypertension. 5. Bilateral renal cortical scarring and nephrolithiasis. VTE Prophylaxis Ordered VTE Prophylaxis Devices: No VTE Pharmacological Prophylaxi: Yes Assessment/Plan Assessment/Plan Acute pancreatitis Acute abdominal pain secondary to acute pancreatitis and progressive Ascites Obesity with a BMI of 31 GERD History of diverticulosis History of cholecystectomy History of hypothyroidism acquired most likely History of diabetes mellitus type 2 History of dyslipidemia History of nephrolithiasis Plan Admit patient to the medical floor Request a GI consultation We will keep the patient n.p.o. IV fluid resuscitation Symptomatic relief of pain and nausea We will follow recommendations from GI Further recommendations will be based on the clinical course DVT prophylaxis will be started with Xarelto Justifications for Admission Other Justification AGUILAR NOE MD Dec 05, 2020 17:43
[2020-12-05] MEDS: PIPERACILLIN/TAZOBACTAM 3.375 GM in IV NORMAL SALINE 50ML 50 ML IV SCH (18:38)
[2020-12-05 19:00] VITALS: BP 125/52
[2020-12-05] MEDS: DOCUSATE SODIUM 100 MG CAPSULE. PO SCH (20:08)
[2020-12-05] MEDS: SENNOSIDES/DOCUSATE 8.6/50MG TABLET. PO SCH (20:09)
[2020-12-05] MEDS: HEPARIN for SUB-Q USE 5,000 UNIT/ML VIAL. SQ SCH (20:10)
[2020-12-05] MEDS: VANCOMYCIN 1.25 GM in IV NORMAL SALINE 250ML 250 ML IV SCH (22:42)
[2020-12-05 23:00] VITALS: BP 137/76
[2020-12-06] MEDS: PIPERACILLIN/TAZOBACTAM 3.375 GM in IV NORMAL SALINE 50ML 50 ML IV SCH ×4 (00:15→17:38)
[2020-12-06 03:00] VITALS: BP 122/59
[2020-12-06] MEDS: IV RINGERS,LACTATED 1000ML 1,000 ML IV SCH ×2 (06:10→11:35)
[2020-12-06 07:00] VITALS: BP 108/38
[2020-12-06] MEDS: SENNOSIDES/DOCUSATE 8.6/50MG TABLET. PO SCH ×2 (07:14→21:36)
[2020-12-06] MEDS: DOCUSATE SODIUM 100 MG CAPSULE. PO SCH ×2 (07:14→21:36)
[2020-12-06] MEDS: PANTOPRAZOLE IV PUSH 40 MG VIAL. IVP SCH ×2 (08:17→09:15)
[2020-12-06] MEDS: MORPHINE SULFATE 2 MG/ML VIAL. IV PRN ×4 (08:18→21:30)
[2020-12-06] MEDS: HEPARIN for SUB-Q USE 5,000 UNIT/ML VIAL. SQ SCH ×2 (08:22→21:32)
[2020-12-06 09:04] LABS: HEMATOCRIT 30.7 % (36.0-47.0); MEAN CORPUSCULAR HEMOGLOBIN 30 pg (25-35); MEAN CORPUSCULAR HGB CONC 33 g/dL (31-37); MEAN CORPUSCULAR VOLUME 92 fL (79-100); PLATELET COUNT 250 x10^3/uL (140-400); RED BLOOD COUNT 3.34 x10^6/uL (3.50-5.40); RED CELL DISTRIBUTION WIDTH 22.7 % (11.5-14.5); WHITE BLOOD COUNT 5.2 x10^3/uL (4.0-11.0)
[2020-12-06 09:11] LABS: ALBUMIN 2.3 g/dL (3.4-5.0); ALBUMIN/GLOBULIN RATIO 0.5 (1.0-1.7); CALCIUM 9.2 mg/dL (8.5-10.1); CREATININE 0.8 mg/dL (0.6-1.0); POTASSIUM 5.1 mmol/L (3.5-5.1); TOTAL BILIRUBIN 10.4 mg/dL (0.2-1.0); TOTAL PROTEIN 6.5 g/dL (6.4-8.2)
[2020-12-06 10:58] VITALS: BP 122/62
[2020-12-06] MEDS: VANCOMYCIN PER PHARMACY MC PRN ×2 (11:11→23:43)
[2020-12-06] MEDS: VANCOMYCIN 1.25 GM in IV NORMAL SALINE 250ML 250 ML IV SCH (12:16)
[2020-12-06 13:48] LABS: % BANDS 5 % (0-9); % EOS 3 % (0-5); % LYMPHS 16 % (24-48); % MONOS 6 % (0-10); % SEGS 70 % (35-66)
[2020-12-06 13:49] LABS: PLT ESTIMATE ADEQUATE (ADEQUATE); POLYCHROMASIA PRESENT
[2020-12-06 13:55] LABS: ANISOCYTOSIS MOD; TARGET CELLS PRESENT
--- NOTE | 2020-12-06 14:44 | PDOC ---
GI PROGRESS NOTES Date of Service: Date/Time DATE: 12/06/20 TIME: 14:41 Subjective Subjective About the same. Still has pain radiating to the back but has not had any vomiting. However she is n.p.o. due to the pancreatitis. Her labs have not changed dramatically since yesterday. Objective Vitals Vital Signs Date Time Temp Pulse Resp B/P (MAP) Pulse Ox O2 Delivery O2 Flow Rate FiO2 12/06/20 12:21 16 Room Air 12/06/20 11:41 16 Room Air 12/06/20 10:58 98.5 72 18 122/62 (82) 97 Room Air 98.5 12/06/20 08:58 16 Room Air 12/06/20 08:18 16 Room Air 12/06/20 08:00 Room Air 12/06/20 07:00 98.1 76 18 108/38 (61) 96 Room Air 98.1 12/06/20 03:00 98.6 71 18 122/59 (80) 97 Room Air 98.6 12/06/20 00:04 14 Room Air 12/05/20 23:28 16 Room Air 12/05/20 23:00 97.8 71 18 137/76 (96) 98 Room Air 97.8 12/05/20 20:00 Room Air 12/05/20 19:00 98.0 68 18 125/52 (76) 98 Room Air 98.0 12/05/20 18:36 Room Air 12/05/20 16:25 Room Air 12/05/20 15:00 98.6 75 17 141/62 (88) 96 Room Air 98.6 Labs Labs Laboratory Tests Test 12/05/20 16:42 12/05/20 19:15 12/06/20 07:27 12/06/20 08:00 SARS-CoV-2 Antigen (Rapid) Negative (NEGATIVE) Glucose (Fingerstick) 249 mg/dL (70-99) 230 mg/dL (70-99) White Blood Count 5.2 x10^3/uL (4.0-11.0) Red Blood Count 3.34 x10^6/uL (3.50-5.40) Hemoglobin 10.0 g/dL (12.0-15.5) Hematocrit 30.7 % (36.0-47.0) Mean Corpuscular Volume 92 fL (79-100) Mean Corpuscular Hemoglobin 30 pg (25-35) Mean Corpuscular Hemoglobin Concent 33 g/dL (31-37) Red Cell Distribution Width 22.7 % (11.5-14.5) Platelet Count 250 x10^3/uL (140-400) Neutrophils (%) (Auto) % (31-73) Lymphocytes (%) (Auto) % (24-48) Monocytes (%) (Auto) % (0-9) Eosinophils (%) (Auto) % (0-3) Basophils (%) (Auto) % (0-3) Neutrophils # (Auto) x10^3/uL (1.8-7.7) Lymphocytes # (Auto) x10^3/uL (1.0-4.8) Monocytes # (Auto) x10^3/uL (0.0-1.1) Eosinophils # (Auto) x10^3/uL (0.0-0.7) Basophils # (Auto) x10^3/uL (0.0-0.2) Segmented Neutrophils % 70 % (35-66) Band Neutrophils % 5 % (0-9) Lymphocytes % 16 % (24-48) Monocytes % 6 % (0-10) Eosinophils % 3 % (0-5) Platelet Estimate Adequate (ADEQUATE) Large Platelets Present Polychromasia Present Anisocytosis Mod Target Cells Present Sodium Level 135 mmol/L (136-145) Potassium Level 5.1 mmol/L (3.5-5.1) Chloride Level 100 mmol/L (98-107) Carbon Dioxide Level 26 mmol/L (21-32) Anion Gap 9 (6-14) Blood Urea Nitrogen 12 mg/dL (7-20) Creatinine 0.8 mg/dL (0.6-1.0) Estimated GFR (Cockcroft-Gault) 72.0 BUN/Creatinine Ratio 15 (6-20) Glucose Level 245 mg/dL (70-99) Calcium Level 9.2 mg/dL (8.5-10.1) Total Bilirubin 10.4 mg/dL (0.2-1.0) Aspartate Amino Transf (AST/SGOT) 158 U/L (15-37) Alanine Aminotransferase (ALT/SGPT) 87 U/L (14-59) Alkaline Phosphatase 435 U/L (46-116) Total Protein 6.5 g/dL (6.4-8.2) Albumin 2.3 g/dL (3.4-5.0) Albumin/Globulin Ratio 0.5 (1.0-1.7) Lipase 5230 U/L (73-393) Physical Exam Physical Exam Chest clear Heart regular rate and rhythm Abdomen soft, mildly tender but no point tenderness or masses, normal bowel sounds Assessment Assessment Acute on chronic pancreatitis. Complicated history likely with previous pancreatitis but now with elevated bilirubin, elevated lipase with possible either underlying fibrosis causing bile duct narrowing or an occult neoplasia. She was on Plavix for previous vascular procedure years ago. Her last dose of Plavix was or may be even Tuesday so that is been held for potential ERCP intervention as soon as her pancreatitis improves. Plan Plan Plan okay to have sips of water and ice chips but continue n.p.o. otherwise Monitor labs. Justicifation of Admission Dx: Justifications for Admission: Justification of Admission Dx: Yes REX CHUNG MD Dec 06, 2020 14:44
[2020-12-06 14:45] VITALS: BP 119/51
[2020-12-06] MEDS: INSULIN LISPRO 300 UNITS/3 ML VIAL. SQ SCH (17:11)
--- NOTE | 2020-12-06 18:46 | PDOC ---
PROGRESS NOTES Date of Service: DATE: 12/06/20 TIME: 18:41 Chief Complaint Chief Complaint Acute pancreatitis Acute abdominal pain secondary to acute pancreatitis and progressive Ascites Obesity with a BMI of 31 GERD History of diverticulosis History of cholecystectomy History of hypothyroidism acquired most likely History of diabetes mellitus type 2 History of dyslipidemia History of nephrolithiasis Plan keep the patient n.p.o. IV fluid resuscitation Symptomatic relief of pain and nausea We will follow recommendations from GI Further recommendations will be based on the clinical course DVT prophylaxis heparin History of Present Illness History of Present Illness 65-year-old female with past medical history of diabetes mellitus type 2 hypothyroidism nephrolithiasis and GERD who was in her usual state of health until approximately 1 month prior to her admission when she started noticing epigastric pain which subsequently has migrated to quadrant pain. Patient also has radiation to the mid back and she has had decrease in appetite with subsequent 15 pound weight loss. The patient says that she was not hungry at all in had bouts of excessive salivation nausea and vomiting of clear liquid mostly sputum. Patient was seen in the outpatient setting and was in the process of being worked up since the patient was noted to have jaundice. This was noted by her chiropractor last week but due to the progressive nature of her symptoms worsening discomfort she decided to come to the emergency department for further evaluation and treatment. As part of her Imaging work-up she underwent CT of the abdomen with and without contrast with the following impression 1. Intrahepatic and extra hepatic biliary ductal dilatation with abrupt cut off of a dilated common bile duct slightly proximal to the ampulla. This may be due to a stricture or occult obstructing lesion. Tissue sampling with endoscopic ultrasound can be performed. MRCP may also be useful for further characterization. 2. Chronic pancreatitis with associated pancreatic calcifications and irregular pancreatic ductal dilatation. There is a 1.8 cm cystic lesion within the pancreatic neck which may be a pseudocyst or cystic neoplasm such as an intraductal papillary mucinous neoplasm. She was found to have an elevated lipase and will be admitted for treatment of pancreatitis. GI consultation has been requested as well to evaluate the abnormal findings on CAT scan. Reassurance has been provided plan of care explained in detail and all of her concerns addressed to the best of my abilities greater than 60 minutes were spent in the assessment of the patient counseling coordination of care and formulation of treatment plan 12/06: No acute events reported overnight, case discussed with nursing staff patient in no acute distress no complaints during my visit Vitals Vitals Vital Signs Date Time Temp Pulse Resp B/P (MAP) Pulse Ox O2 Delivery O2 Flow Rate FiO2 12/06/20 16:58 16 Room Air 12/06/20 14:45 98.3 78 119/51 (73) 97 98.3 Physical Exam Physical Exam Gen.: well-developed well-nourished in no apparent distress Head: Normal shape atraumatic Eyes: Pupils equal reactive to light and accommodation, jaundiced conjunctivae and lids Ears: Normal shape Nose: Normal shape no trauma Mouth: No exudates of the back of throat no thrush no lesions Neck: Supple no JVD no carotid bruit or lymphadenopathy no thyromegaly Chest: Lungs clear to auscultation with good inspiratory effort no crackles rales or rhonchi Cardiovascular: S1-S2 regular rhythm no murmurs gallops or rubs Abdomen: Bowel sounds present soft nontender no hepatosplenomegaly appreciated sign Extremities: No clubbing no cyanosis 2+ edema peripheral pulses palpated bilaterally Neurological: Alert awake oriented in person time place and situation, cranial nerves II through XII intact, no motor or sensory deficits appreciated Psych: Appropriate mood, cooperative Labs LABS Laboratory Tests Test 12/05/20 19:15 12/06/20 07:27 12/06/20 08:00 Glucose (Fingerstick) 249 mg/dL (70-99) 230 mg/dL (70-99) White Blood Count 5.2 x10^3/uL (4.0-11.0) Red Blood Count 3.34 x10^6/uL (3.50-5.40) Hemoglobin 10.0 g/dL (12.0-15.5) Hematocrit 30.7 % (36.0-47.0) Mean Corpuscular Volume 92 fL (79-100) Mean Corpuscular Hemoglobin 30 pg (25-35) Mean Corpuscular Hemoglobin Concent 33 g/dL (31-37) Red Cell Distribution Width 22.7 % (11.5-14.5) Platelet Count 250 x10^3/uL (140-400) Neutrophils (%) (Auto) % (31-73) Lymphocytes (%) (Auto) % (24-48) Monocytes (%) (Auto) % (0-9) Eosinophils (%) (Auto) % (0-3) Basophils (%) (Auto) % (0-3) Neutrophils # (Auto) x10^3/uL (1.8-7.7) Lymphocytes # (Auto) x10^3/uL (1.0-4.8) Monocytes # (Auto) x10^3/uL (0.0-1.1) Eosinophils # (Auto) x10^3/uL (0.0-0.7) Basophils # (Auto) x10^3/uL (0.0-0.2) Segmented Neutrophils % 70 % (35-66) Band Neutrophils % 5 % (0-9) Lymphocytes % 16 % (24-48) Monocytes % 6 % (0-10) Eosinophils % 3 % (0-5) Platelet Estimate Adequate (ADEQUATE) Large Platelets Present Polychromasia Present Anisocytosis Mod Target Cells Present Sodium Level 135 mmol/L (136-145) Potassium Level 5.1 mmol/L (3.5-5.1) Chloride Level 100 mmol/L (98-107) Carbon Dioxide Level 26 mmol/L (21-32) Anion Gap 9 (6-14) Blood Urea Nitrogen 12 mg/dL (7-20) Creatinine 0.8 mg/dL (0.6-1.0) Estimated GFR (Cockcroft-Gault) 72.0 BUN/Creatinine Ratio 15 (6-20) Glucose Level 245 mg/dL (70-99) Calcium Level 9.2 mg/dL (8.5-10.1) Total Bilirubin 10.4 mg/dL (0.2-1.0) Aspartate Amino Transf (AST/SGOT) 158 U/L (15-37) Alanine Aminotransferase (ALT/SGPT) 87 U/L (14-59) Alkaline Phosphatase 435 U/L (46-116) Total Protein 6.5 g/dL (6.4-8.2) Albumin 2.3 g/dL (3.4-5.0) Albumin/Globulin Ratio 0.5 (1.0-1.7) Lipase 5230 U/L (73-393) Review of Systems Review of Systems Review of systems pertinent as per HPI otherwise 14 point review of system is negative Assessment and Plan Assessmemt and Plan Problems Medical Problems: (1) Common bile duct dilatation Status: Acute (2) Hyperbilirubinemia Status: Acute (3) Pancreatitis Status: Acute Comment Review of Relevant I have reviewed the following items fabricio (where applicable) has been applied. Labs Laboratory Tests Test 12/05/20 08:53 12/05/20 16:42 12/05/20 19:15 12/06/20 07:27 White Blood Count 9.4 x10^3/uL (4.0-11.0) Red Blood Count 3.91 x10^6/uL (3.50-5.40) Hemoglobin 11.3 g/dL (12.0-15.5) Hematocrit 35.6 % (36.0-47.0) Mean Corpuscular Volume 91 fL (79-100) Mean Corpuscular Hemoglobin 29 pg (25-35) Mean Corpuscular Hemoglobin Concent 32 g/dL (31-37) Red Cell Distribution Width 22.9 % (11.5-14.5) Platelet Count 361 x10^3/uL (140-400) Neutrophils (%) (Auto) 38 % (31-73) Lymphocytes (%) (Auto) 49 % (24-48) Monocytes (%) (Auto) 11 % (0-9) Eosinophils (%) (Auto) 0 % (0-3) Basophils (%) (Auto) 1 % (0-3) Neutrophils # (Auto) 3.6 x10^3/uL (1.8-7.7) Lymphocytes # (Auto) 4.6 x10^3/uL (1.0-4.8) Monocytes # (Auto) 1.1 x10^3/uL (0.0-1.1) Eosinophils # (Auto) 0.0 x10^3/uL (0.0-0.7) Basophils # (Auto) 0.1 x10^3/uL (0.0-0.2) Segmented Neutrophils % 81 % (35-66) Band Neutrophils % 4 % (0-9) Lymphocytes % 9 % (24-48) Monocytes % 6 % (0-10) Platelet Estimate Adequate (ADEQUATE) Large Platelets Few Giant Platelets Few Anisocytosis Present Prothrombin Time 19.4 SEC (11.7-14.0) Prothromb Time International Ratio 1.7 (0.8-1.1) Urine Collection Type Unknown Urine Color Miner Urine Clarity Clear Urine pH 5.5 (<5.0-8.0) Urine Specific [place] >=1.030 (1.000-1.030) Urine Protein 100 mg/dL (NEG-TRACE) Urine Glucose (UA) >=1000 mg/dL (NEG) Urine Ketones (Stick) 15 mg/dL (NEG) Urine Blood Negative (NEG) Urine Nitrite Positive (NEG) Urine Bilirubin Large (NEG) Urine Urobilinogen Dipstick 1.0 mg/dL (0.2 mg/dL) Urine Leukocyte Esterase Small (NEG) Urine RBC 0 /HPF (0-2) Urine WBC 5-10 /HPF (0-4) Urine Squamous Epithelial Cells Mod /LPF Urine Bacteria Few /HPF (0-FEW) Urine Hyaline Casts Moderate /HPF Urine Mucus Mod /LPF Urine Yeast Present /HPF Sodium Level 129 mmol/L (136-145) Potassium Level 4.7 mmol/L (3.5-5.1) Chloride Level 95 mmol/L (98-107) Carbon Dioxide Level 23 mmol/L (21-32) Anion Gap 11 (6-14) Blood Urea Nitrogen 15 mg/dL (7-20) Creatinine 0.8 mg/dL (0.6-1.0) Estimated GFR (Cockcroft-Gault) 72.0 BUN/Creatinine Ratio 19 (6-20) Glucose Level 292 mg/dL (70-99) Calcium Level 9.7 mg/dL (8.5-10.1) Total Bilirubin 11.5 mg/dL (0.2-1.0) Aspartate Amino Transf (AST/SGOT) 199 U/L (15-37) Alanine Aminotransferase (ALT/SGPT) 111 U/L (14-59) Alkaline Phosphatase 518 U/L (46-116) Ammonia 19 mcmol/L (11-34) Total Protein 8.7 g/dL (6.4-8.2) Albumin 2.8 g/dL (3.4-5.0) Albumin/Globulin Ratio 0.5 (1.0-1.7) Lipase 5708 U/L (73-393) SARS-CoV-2 Antigen (Rapid) Negative (NEGATIVE) Glucose (Fingerstick) 249 mg/dL (70-99) 230 mg/dL (70-99) Test 12/06/20 08:00 White Blood Count 5.2 x10^3/uL (4.0-11.0) Red Blood Count 3.34 x10^6/uL (3.50-5.40) Hemoglobin 10.0 g/dL (12.0-15.5) Hematocrit 30.7 % (36.0-47.0) Mean Corpuscular Volume 92 fL (79-100) Mean Corpuscular Hemoglobin 30 pg (25-35) Mean Corpuscular Hemoglobin Concent 33 g/dL (31-37) Red Cell Distribution Width 22.7 % (11.5-14.5) Platelet Count 250 x10^3/uL (140-400) Neutrophils (%) (Auto) % (31-73) Lymphocytes (%) (Auto) % (24-48) Monocytes (%) (Auto) % (0-9) Eosinophils (%) (Auto) % (0-3) Basophils (%) (Auto) % (0-3) Neutrophils # (Auto) x10^3/uL (1.8-7.7) Lymphocytes # (Auto) x10^3/uL (1.0-4.8) Monocytes # (Auto) x10^3/uL (0.0-1.1) Eosinophils # (Auto) x10^3/uL (0.0-0.7) Basophils # (Auto) x10^3/uL (0.0-0.2) Segmented Neutrophils % 70 % (35-66) Band Neutrophils % 5 % (0-9) Lymphocytes % 16 % (24-48) Monocytes % 6 % (0-10) Eosinophils % 3 % (0-5) Platelet Estimate Adequate (ADEQUATE) Large Platelets Present Polychromasia Present Anisocytosis Mod Target Cells Present Sodium Level 135 mmol/L (136-145) Potassium Level 5.1 mmol/L (3.5-5.1) Chloride Level 100 mmol/L (98-107) Carbon Dioxide Level 26 mmol/L (21-32) Anion Gap 9 (6-14) Blood Urea Nitrogen 12 mg/dL (7-20) Creatinine 0.8 mg/dL (0.6-1.0) Estimated GFR (Cockcroft-Gault) 72.0 BUN/Creatinine Ratio 15 (6-20) Glucose Level 245 mg/dL (70-99) Calcium Level 9.2 mg/dL (8.5-10.1) Total Bilirubin 10.4 mg/dL (0.2-1.0) Aspartate Amino Transf (AST/SGOT) 158 U/L (15-37) Alanine Aminotransferase (ALT/SGPT) 87 U/L (14-59) Alkaline Phosphatase 435 U/L (46-116) Total Protein 6.5 g/dL (6.4-8.2) Albumin 2.3 g/dL (3.4-5.0) Albumin/Globulin Ratio 0.5 (1.0-1.7) Lipase 5230 U/L (73-393) Laboratory Tests Test 12/05/20 19:15 12/06/20 07:27 12/06/20 08:00 Glucose (Fingerstick) 249 mg/dL (70-99) 230 mg/dL (70-99) White Blood Count 5.2 x10^3/uL (4.0-11.0) Red Blood Count 3.34 x10^6/uL (3.50-5.40) Hemoglobin 10.0 g/dL (12.0-15.5) Hematocrit 30.7 % (36.0-47.0) Mean Corpuscular Volume 92 fL (79-100) Mean Corpuscular Hemoglobin 30 pg (25-35) Mean Corpuscular Hemoglobin Concent 33 g/dL (31-37) Red Cell Distribution Width 22.7 % (11.5-14.5) Platelet Count 250 x10^3/uL (140-400) Neutrophils (%) (Auto) % (31-73) Lymphocytes (%) (Auto) % (24-48) Monocytes (%) (Auto) % (0-9) Eosinophils (%) (Auto) % (0-3) Basophils (%) (Auto) % (0-3) Neutrophils # (Auto) x10^3/uL (1.8-7.7) Lymphocytes # (Auto) x10^3/uL (1.0-4.8) Monocytes # (Auto) x10^3/uL (0.0-1.1) Eosinophils # (Auto) x10^3/uL (0.0-0.7) Basophils # (Auto) x10^3/uL (0.0-0.2) Segmented Neutrophils % 70 % (35-66) Band Neutrophils % 5 % (0-9) Lymphocytes % 16 % (24-48) Monocytes % 6 % (0-10) Eosinophils % 3 % (0-5) Platelet Estimate Adequate (ADEQUATE) Large Platelets Present Polychromasia Present Anisocytosis Mod Target Cells Present Sodium Level 135 mmol/L (136-145) Potassium Level 5.1 mmol/L (3.5-5.1) Chloride Level 100 mmol/L (98-107) Carbon Dioxide Level 26 mmol/L (21-32) Anion Gap 9 (6-14) Blood Urea Nitrogen 12 mg/dL (7-20) Creatinine 0.8 mg/dL (0.6-1.0) Estimated GFR (Cockcroft-Gault) 72.0 BUN/Creatinine Ratio 15 (6-20) Glucose Level 245 mg/dL (70-99) Calcium Level 9.2 mg/dL (8.5-10.1) Total Bilirubin 10.4 mg/dL (0.2-1.0) Aspartate Amino Transf (AST/SGOT) 158 U/L (15-37) Alanine Aminotransferase (ALT/SGPT) 87 U/L (14-59) Alkaline Phosphatase 435 U/L (46-116) Total Protein 6.5 g/dL (6.4-8.2) Albumin 2.3 g/dL (3.4-5.0) Albumin/Globulin Ratio 0.5 (1.0-1.7) Lipase 5230 U/L (73-393) Microbiology 12/05/20 Urine Culture - Final, Complete Medications Current Medications Iohexol (Omnipaque 300 Mg/ml) 75 ml 1X ONCE IV Last administered on 12/05/20at 09:30; Start 12/05/20 at 09:15; Stop 12/05/20 at 09:16; Status DC Info (CONTRAST GIVEN -- Rx MONITORING) 1 each PRN DAILY PRN MC SEE COMMENTS; Start 12/05/20 at 09:15; Stop 12/07/20 at 09:14 Vancomycin HCl (Vanco Per Pharmacy) 1 each PRN DAILY PRN MC SEE COMMENTS Last administered on 12/06/20at 11:11; Start 12/05/20 at 10:45 Piperacillin Sod/ Tazobactam Sod (Zosyn Per Pharmacy) 1 each PRN DAILY PRN MC SEE COMMENTS; Start 12/05/20 at 10:45 Vancomycin HCl 2 gm/Sodium Chloride 500 ml @ 250 mls/hr 1X ONCE IV Last administered on 12/05/20at 11:35; Start 12/05/20 at 11:00; Stop 12/05/20 at 12:59; Status DC Piperacillin Sod/ Tazobactam Sod 3.375 gm/Sodium Chloride 50 ml @ 100 mls/hr 1X ONCE IV Last administered on 12/05/20at 10:57; Start 12/05/20 at 10:45; Stop 12/05/20 at 11:14; Status DC Fentanyl Citrate (Fentanyl 2ml Vial) 50 mcg PRN Q30MIN PRN IV SEVERE PAIN 7-10 Last administered on 12/05/20at 10:56; Start 12/05/20 at 11:00 Fentanyl Citrate (Fentanyl 2ml Vial) 100 mcg STK-MED ONCE .ROUTE ; Start 12/05/20 at 10:52; Stop 12/05/20 at 10:52; Status DC Sodium Chloride 1,000 ml @ 100 mls/hr Q10H IV ; Start 12/05/20 at 11:00; Stop 12/05/20 at 14:59; Status DC Ringer's Solution 1,000 ml @ 100 mls/hr Q10H IV Last administered on 12/06/20at 11:35; Start 12/05/20 at 11:00 Ondansetron HCl (Zofran) 4 mg PRN Q6HRS PRN IVP NAUSEA/VOMITING; Start 12/05/20 at 11:00 Al Hydroxide/Mg Hydroxide (Mylanta Plus Xs) 30 ml PRN Q3HRS PRN PO HEARTBURN / GAS; Start 12/05/20 at 11:00 Zolpidem Tartrate (Ambien) 5 mg PRN QHS PRN PO INSOMNIA, MAY REPEAT IN 1HR; Start 12/05/20 at 11:00 Info (Non-Icu Electrolyte Protocol) 1 ea PRN DAILY PRN MC SEE COMMENTS; Start 12/05/20 at 11:00 Morphine Sulfate (Morphine Sulfate) 2 mg PRN Q1HR PRN IV MODERATE PAIN Last administered on 12/06/20at 16:25; Start 12/05/20 at 11:00 Oxycodone/ Acetaminophen (Percocet 5/325) 1 tab PRN Q4HRS PRN PO MILD PAIN, 1ST CHOICE; Start 12/05/20 at 11:00 Senna/Docusate Sodium (Senna Plus) 1 tab BID PO ; Start 12/05/20 at 21:00 Docusate Sodium (Colace) 100 mg BID PO ; Start 12/05/20 at 21:00 Lactulose (Lactulose) 20 gm PRN Q12HR PRN PO CONSTIPATION; Start 12/05/20 at 11:00 Heparin Sodium (Porcine) (Heparin Sodium) 5,000 unit Q12HR SQ Last administered on 12/06/20at 08:22; Start 12/05/20 at 21:00 Piperacillin Sod/ Tazobactam Sod 3.375 gm/Sodium Chloride 50 ml @ 100 mls/hr Q6HRS IV Last administered on 12/06/20at 17:38; Start 12/05/20 at 18:00 Vancomycin HCl 1.25 gm/Sodium Chloride 250 ml @ 167 mls/hr Q12H IV Last administered on 12/06/20at 12:16; Start 12/05/20 at 23:30 Vancomycin HCl (Vancomycin Trough Level) 1 each 1X ONCE MC ; Start 12/06/20 at 23:00; Stop 12/06/20 at 23:01 Pantoprazole Sodium (PROTONIX VIAL for IV PUSH) 40 mg DAILY IVP Last administered on 12/06/20at 09:15; Start 12/06/20 at 07:30 Insulin Human Lispro (HumaLOG) 0-7 UNITS TIDWMEALS SQ Last administered on 12/06/20at 17:11; Start 12/06/20 at 17:00 Dextrose (Dextrose 50%-Water Syringe) 12.5 gm PRN Q15MIN PRN IV SEE COMMENTS; Start 12/06/20 at 13:45 Lactobacillus Rhamnosus (Culturelle) 1 cap BID PO ; Start 12/06/20 at 21:00 Active Scripts Active Reported Tresiba (Insulin Degludec) 100 Unit/1 Ml Vial 80 Unit SQ DAILY [cbd oil] 250 PO BID Ibuprofen 400 Mg Tablet 400 Mg PO PRN Q6HRS PRN Humalog (Insulin Lispro) 100 Unit/1 Ml Cartridge 25 Unit SQ TIDAC Colestipol Hcl 1 Gm Tablet 1 Gm PO DAILY Diclofenac Sodium 75 Mg Tablet.dr 75 Mg PO DAILY Prilosec (Omeprazole) 10 Mg Capsule.dr 10 Mg PO DAILY Simvastatin 80 Mg Tablet 80 Mg PO HS Fenofibrate (Fenofibrate Nanocrystallized) 145 Mg Tablet 160 Mg PO DAILY Vitamin D2 (Ergocalciferol (Vitamin D2)) 50,000 Unit Capsule 50,000 Unit PO WEEKLY Levothyroxine Sodium 175 Mcg Tablet 175 Mcg PO DAILYAC Feosol (Ferrous Sulfate) 325 Mg Tablet 325 Mg PO TID Lisinopril 10 Mg Tablet 10 Mg PO DAILY Clopidogrel (Clopidogrel Bisulfate) 75 Mg Tablet 75 Mg PO DAILY Sertraline Hcl 100 Mg Tablet 100 Mg PO DAILY Invokana (Canagliflozin) 300 Mg Tablet 300 Mg PO DAILY Metformin Hcl 500 Mg Tablet 500 Mg PO BIDWMEALS Vitals/I & O Vital Sign - Last 24 Hours 12/05/20 12/05/20 12/05/20 12/05/20 19:00 20:00 23:00 23:28 Temp 98.0 97.8 98.0 97.8 Pulse 68 71 Resp 18 18 16 B/P (MAP) 125/52 (76) 137/76 (96) Pulse Ox 98 98 O2 Delivery Room Air Room Air Room Air Room Air 12/06/20 12/06/20 12/06/20 12/06/20 00:04 03:00 07:00 08:00 Temp 98.6 98.1 98.6 98.1 Pulse 71 76 Resp 14 18 18 B/P (MAP) 122/59 (80) 108/38 (61) Pulse Ox 97 96 O2 Delivery Room Air Room Air Room Air Room Air 12/06/20 12/06/20 12/06/20 12/06/20 08:18 08:58 10:58 11:41 Temp 98.5 98.5 Pulse 72 Resp 16 16 18 16 B/P (MAP) 122/62 (82) Pulse Ox 97 O2 Delivery Room Air Room Air Room Air Room Air 12/06/20 12/06/20 12/06/20 12/06/20 12:21 14:45 16:25 16:58 Temp 98.3 98.3 Pulse 78 Resp 16 18 16 16 B/P (MAP) 119/51 (73) Pulse Ox 97 O2 Delivery Room Air Room Air Room Air Room Air Intake and Output 12/05/20 12/05/20 12/06/20 15:00 23:00 07:00 Intake Total 50 ml 1550 ml 300 ml Balance 50 ml 1550 ml 300 ml Justicifation of Admission Dx: Justifications for Admission: Justification of Admission Dx: Yes AGUILAR NOE MD Dec 06, 2020 18:46
[2020-12-06 19:00] VITALS: BP 133/50
[2020-12-06] MEDS: LACTOBACILLUS RHAMNOSUS GG 1 CAPSULE. PO SCH (21:36)
[2020-12-06 22:19] LABS: VANC TR 18.4 mcg/mL (10.0-20.0)
--- NOTE | 2020-12-06 23:43 | NUR ---
Pharmacy Vancomycin Dosing Note S: Consulted to monitor and dose vancomycin started 12/05/20. O: PHYLLIS LEMON is a 65 year old F with Empiric, . Other Antibiotics: zosyn LABS: Last BUN: 12 Last Creatinine: 0.8 Creatinine Clearance: 63 mL/min Last WBC: 5.2 Last Procalcitonin: Tmax (past 24 hours): 99.0 Microbiology: No organism identified. I/O: 1900/ - 2VOIDS Drug Levels: Last Trough level: 18.4 on 12/06/20 at 2200 Last dose given 12/06/20 at 1216 Vancomycin Dosing: Dosing Weight: Actual Target Trough: 10-20 A: Based on: Trough, Actual Wt and CrCl P: 1. 12/06/20 2330 Continue Vancomycin 1250 mg IV q12h 2. Follow up Trough level in 5 to 7 days as needed 3. Pharmacy will continue to monitor, follow and adjust therapy as needed. JAMES PATEL RPH, 12/06/20 2343 Signed: 12/06/20 at 2345 by JAMES PATEL RPH PHA
[2020-12-06 23:57] VITALS: BP 108/31
[2020-12-07] MEDS: VANCOMYCIN 1.25 GM in IV NORMAL SALINE 250ML 250 ML IV SCH ×2 (00:40→10:57)
[2020-12-07] MEDS: MORPHINE SULFATE 2 MG/ML VIAL. IV PRN ×3 (01:19→08:53)
[2020-12-07] MEDS: PIPERACILLIN/TAZOBACTAM 3.375 GM in IV NORMAL SALINE 50ML 50 ML IV SCH ×4 (02:13→17:45)
[2020-12-07 03:12] VITALS: BP 102/29
[2020-12-07] MEDS: IV RINGERS,LACTATED 1000ML 1,000 ML IV SCH ×2 (03:46→13:00)
[2020-12-07] MEDS: LEVOTHYROXINE 175 MCG TABLET PO SCH (07:07)
[2020-12-07 07:10] VITALS: BP 148/65
[2020-12-07] MEDS: INSULIN LISPRO 300 UNITS/3 ML VIAL. SQ SCH ×6 (08:00→17:00)
[2020-12-07] MEDS: PANTOPRAZOLE IV PUSH 40 MG VIAL. IVP SCH (08:40)
[2020-12-07] MEDS: LISINOPRIL 10 MG TABLET PO SCH (08:41)
[2020-12-07] MEDS: DOCUSATE SODIUM 100 MG CAPSULE. PO SCH ×2 (08:41→21:55)
[2020-12-07] MEDS: LACTOBACILLUS RHAMNOSUS GG 1 CAPSULE. PO SCH ×2 (08:41→21:56)
[2020-12-07] MEDS: SENNOSIDES/DOCUSATE 8.6/50MG TABLET. PO SCH ×2 (08:41→21:56)
[2020-12-07] MEDS: SERTRALINE 50 MG TABLET. PO SCH (08:41)
[2020-12-07] MEDS: HEPARIN for SUB-Q USE 5,000 UNIT/ML VIAL. SQ SCH ×2 (08:45→21:57)
[2020-12-07] MEDS ORDERED: INSULIN GLARGINE SYRINGE. SQ SCH (09:00)
--- NOTE | 2020-12-07 09:52 | PDOC ---
PROGRESS NOTES Date of Service: DATE: 12/07/20 TIME: 09:38 Chief Complaint Chief Complaint Acute pancreatitis Acute abdominal pain secondary to acute pancreatitis and progressive Ascites Obesity with a BMI of 31 GERD History of diverticulosis History of cholecystectomy History of hypothyroidism acquired most likely History of diabetes mellitus type 2 History of dyslipidemia History of nephrolithiasis Plan keep the patient n.p.o. IV fluid resuscitation Symptomatic relief of pain and nausea We will follow recommendations from GI Further recommendations will be based on the clinical course DVT prophylaxis heparin History of Present Illness History of Present Illness 65-year-old female with past medical history of diabetes mellitus type 2 hypothyroidism nephrolithiasis and GERD who was in her usual state of health until approximately 1 month prior to her admission when she started noticing epigastric pain which subsequently has migrated to quadrant pain. Patient also has radiation to the mid back and she has had decrease in appetite with subsequent 15 pound weight loss. The patient says that she was not hungry at all in had bouts of excessive salivation nausea and vomiting of clear liquid mostly sputum. Patient was seen in the outpatient setting and was in the process of being worked up since the patient was noted to have jaundice. This was noted by her chiropractor last week but due to the progressive nature of her symptoms worsening discomfort she decided to come to the emergency department for further evaluation and treatment. As part of her Imaging work-up she underwent CT of the abdomen with and without contrast with the following impression 1. Intrahepatic and extra hepatic biliary ductal dilatation with abrupt cut off of a dilated common bile duct slightly proximal to the ampulla. This may be due to a stricture or occult obstructing lesion. Tissue sampling with endoscopic ultrasound can be performed. MRCP may also be useful for further characterization. 2. Chronic pancreatitis with associated pancreatic calcifications and irregular pancreatic ductal dilatation. There is a 1.8 cm cystic lesion within the pancreatic neck which may be a pseudocyst or cystic neoplasm such as an intraductal papillary mucinous neoplasm. She was found to have an elevated lipase and will be admitted for treatment of pancreatitis. GI consultation has been requested as well to evaluate the abnormal findings on CAT scan. Reassurance has been provided plan of care explained in detail and all of her concerns addressed to the best of my abilities greater than 60 minutes were spent in the assessment of the patient counseling coordination of care and formulation of treatment plan 12/06: No acute events reported overnight, case discussed with nursing staff patient in no acute distress no complaints during my visit 12/07: Patient had a "rough night". At the time of my note she is resting in no acute distress. Plan of care discussed in detail all concerns addressed to the best of my abilities. Vitals Vitals Vital Signs Date Time Temp Pulse Resp B/P (MAP) Pulse Ox O2 Delivery O2 Flow Rate FiO2 12/07/20 09:29 16 Room Air 12/07/20 08:41 71 148/65 12/07/20 07:10 98.4 96 98.4 Physical Exam Physical Exam Gen.: well-developed well-nourished in no apparent distress Head: Normal shape atraumatic Eyes: Pupils equal reactive to light and accommodation, jaundiced conjunctivae and lids Ears: Normal shape Nose: Normal shape no trauma Mouth: No exudates of the back of throat no thrush no lesions Neck: Supple no JVD no carotid bruit or lymphadenopathy no thyromegaly Chest: Lungs clear to auscultation with good inspiratory effort no crackles rales or rhonchi Cardiovascular: S1-S2 regular rhythm no murmurs gallops or rubs Abdomen: Bowel sounds present soft nontender no hepatosplenomegaly appreciated sign Extremities: No clubbing no cyanosis 2+ edema peripheral pulses palpated bilaterally Neurological: Alert awake oriented in person time place and situation, cranial nerves II through XII intact, no motor or sensory deficits appreciated Psych: Appropriate mood, cooperative Labs LABS Laboratory Tests Test 12/06/20 22:00 Vancomycin Level Trough 18.4 mcg/mL (10.0-20.0) Vancomycin Last Dose Date Vancomycin Last Dose Time Review of Systems Review of Systems Review of systems pertinent as per HPI otherwise 14 point review of system is negative Assessment and Plan Assessmemt and Plan Problems Medical Problems: (1) Common bile duct dilatation Status: Acute (2) Hyperbilirubinemia Status: Acute (3) Pancreatitis Status: Acute Comment Review of Relevant I have reviewed the following items fabricio (where applicable) has been applied. Labs Laboratory Tests Test 12/05/20 16:42 12/05/20 19:15 12/06/20 07:27 12/06/20 08:00 Coronavirus (PCR) Not detected (Not Detected) SARS-CoV-2 Antigen (Rapid) Negative (NEGATIVE) Glucose (Fingerstick) 249 mg/dL (70-99) 230 mg/dL (70-99) White Blood Count 5.2 x10^3/uL (4.0-11.0) Red Blood Count 3.34 x10^6/uL (3.50-5.40) Hemoglobin 10.0 g/dL (12.0-15.5) Hematocrit 30.7 % (36.0-47.0) Mean Corpuscular Volume 92 fL (79-100) Mean Corpuscular Hemoglobin 30 pg (25-35) Mean Corpuscular Hemoglobin Concent 33 g/dL (31-37) Red Cell Distribution Width 22.7 % (11.5-14.5) Platelet Count 250 x10^3/uL (140-400) Neutrophils (%) (Auto) % (31-73) Lymphocytes (%) (Auto) % (24-48) Monocytes (%) (Auto) % (0-9) Eosinophils (%) (Auto) % (0-3) Basophils (%) (Auto) % (0-3) Neutrophils # (Auto) x10^3/uL (1.8-7.7) Lymphocytes # (Auto) x10^3/uL (1.0-4.8) Monocytes # (Auto) x10^3/uL (0.0-1.1) Eosinophils # (Auto) x10^3/uL (0.0-0.7) Basophils # (Auto) x10^3/uL (0.0-0.2) Segmented Neutrophils % 70 % (35-66) Band Neutrophils % 5 % (0-9) Lymphocytes % 16 % (24-48) Monocytes % 6 % (0-10) Eosinophils % 3 % (0-5) Platelet Estimate Adequate (ADEQUATE) Large Platelets Present Polychromasia Present Anisocytosis Mod Target Cells Present Sodium Level 135 mmol/L (136-145) Potassium Level 5.1 mmol/L (3.5-5.1) Chloride Level 100 mmol/L (98-107) Carbon Dioxide Level 26 mmol/L (21-32) Anion Gap 9 (6-14) Blood Urea Nitrogen 12 mg/dL (7-20) Creatinine 0.8 mg/dL (0.6-1.0) Estimated GFR (Cockcroft-Gault) 72.0 BUN/Creatinine Ratio 15 (6-20) Glucose Level 245 mg/dL (70-99) Calcium Level 9.2 mg/dL (8.5-10.1) Total Bilirubin 10.4 mg/dL (0.2-1.0) Aspartate Amino Transf (AST/SGOT) 158 U/L (15-37) Alanine Aminotransferase (ALT/SGPT) 87 U/L (14-59) Alkaline Phosphatase 435 U/L (46-116) Total Protein 6.5 g/dL (6.4-8.2) Albumin 2.3 g/dL (3.4-5.0) Albumin/Globulin Ratio 0.5 (1.0-1.7) Lipase 5230 U/L (73-393) Test 12/06/20 22:00 Vancomycin Level Trough 18.4 mcg/mL (10.0-20.0) Vancomycin Last Dose Date Vancomycin Last Dose Time Laboratory Tests Test 12/06/20 22:00 Vancomycin Level Trough 18.4 mcg/mL (10.0-20.0) Vancomycin Last Dose Date Vancomycin Last Dose Time Microbiology 12/05/20 Urine Culture - Final, Complete Medications Current Medications Iohexol (Omnipaque 300 Mg/ml) 75 ml 1X ONCE IV Last administered on 12/05/20at 09:30; Start 12/05/20 at 09:15; Stop 12/05/20 at 09:16; Status DC Info (CONTRAST GIVEN -- Rx MONITORING) 1 each PRN DAILY PRN MC SEE COMMENTS; Start 12/05/20 at 09:15; Stop 12/07/20 at 09:14; Status DC Vancomycin HCl (Vanco Per Pharmacy) 1 each PRN DAILY PRN MC SEE COMMENTS Last administered on 12/06/20at 23:43; Start 12/05/20 at 10:45 Piperacillin Sod/ Tazobactam Sod (Zosyn Per Pharmacy) 1 each PRN DAILY PRN MC SEE COMMENTS; Start 12/05/20 at 10:45 Vancomycin HCl 2 gm/Sodium Chloride 500 ml @ 250 mls/hr 1X ONCE IV Last administered on 12/05/20at 11:35; Start 12/05/20 at 11:00; Stop 12/05/20 at 12:59; Status DC Piperacillin Sod/ Tazobactam Sod 3.375 gm/Sodium Chloride 50 ml @ 100 mls/hr 1X ONCE IV Last administered on 12/05/20at 10:57; Start 12/05/20 at 10:45; Stop 12/05/20 at 11:14; Status DC Fentanyl Citrate (Fentanyl 2ml Vial) 50 mcg PRN Q30MIN PRN IV SEVERE PAIN 7-10 Last administered on 12/05/20at 10:56; Start 12/05/20 at 11:00 Fentanyl Citrate (Fentanyl 2ml Vial) 100 mcg STK-MED ONCE .ROUTE ; Start 12/05/20 at 10:52; Stop 12/05/20 at 10:52; Status DC Sodium Chloride 1,000 ml @ 100 mls/hr Q10H IV ; Start 12/05/20 at 11:00; Stop 12/05/20 at 14:59; Status DC Ringer's Solution 1,000 ml @ 100 mls/hr Q10H IV Last administered on 12/07/20at 03:46; Start 12/05/20 at 11:00 Ondansetron HCl (Zofran) 4 mg PRN Q6HRS PRN IVP NAUSEA/VOMITING; Start 12/05/20 at 11:00 Al Hydroxide/Mg Hydroxide (Mylanta Plus Xs) 30 ml PRN Q3HRS PRN PO HEARTBURN / GAS; Start 12/05/20 at 11:00 Zolpidem Tartrate (Ambien) 5 mg PRN QHS PRN PO INSOMNIA, MAY REPEAT IN 1HR; Start 12/05/20 at 11:00 Info (Non-Icu Electrolyte Protocol) 1 ea PRN DAILY PRN MC SEE COMMENTS; Start 12/05/20 at 11:00 Morphine Sulfate (Morphine Sulfate) 2 mg PRN Q1HR PRN IV MODERATE PAIN Last administered on 12/07/20at 08:53; Start 12/05/20 at 11:00 Oxycodone/ Acetaminophen (Percocet 5/325) 1 tab PRN Q4HRS PRN PO MILD PAIN, 1ST CHOICE; Start 12/05/20 at 11:00 Senna/Docusate Sodium (Senna Plus) 1 tab BID PO Last administered on 12/07/20at 08:41; Start 12/05/20 at 21:00 Docusate Sodium (Colace) 100 mg BID PO Last administered on 12/07/20at 08:41; Start 12/05/20 at 21:00 Lactulose (Lactulose) 20 gm PRN Q12HR PRN PO CONSTIPATION; Start 12/05/20 at 11:00 Heparin Sodium (Porcine) (Heparin Sodium) 5,000 unit Q12HR SQ Last administered on 12/07/20at 08:45; Start 12/05/20 at 21:00 Piperacillin Sod/ Tazobactam Sod 3.375 gm/Sodium Chloride 50 ml @ 100 mls/hr Q6HRS IV Last administered on 12/07/20at 07:07; Start 12/05/20 at 18:00 Vancomycin HCl 1.25 gm/Sodium Chloride 250 ml @ 167 mls/hr Q12H IV Last administered on 12/07/20at 00:40; Start 12/05/20 at 23:30 Vancomycin HCl (Vancomycin Trough Level) 1 each 1X ONCE MC Last administered on 12/06/20at 23:00; Start 12/06/20 at 23:00; Stop 12/06/20 at 23:01; Status DC Pantoprazole Sodium (PROTONIX VIAL for IV PUSH) 40 mg DAILY IVP Last administered on 12/07/20at 08:40; Start 12/06/20 at 07:30 Insulin Human Lispro (HumaLOG) 0-7 UNITS TIDWMEALS SQ Last administered on 12/07/20at 08:46; Start 12/06/20 at 17:00 Dextrose (Dextrose 50%-Water Syringe) 12.5 gm PRN Q15MIN PRN IV SEE COMMENTS; Start 12/06/20 at 13:45 Lactobacillus Rhamnosus (Culturelle) 1 cap BID PO Last administered on 12/07/20at 08:41; Start 12/06/20 at 21:00 Levothyroxine Sodium (Synthroid) 175 mcg DAILY06 PO Last administered on 12/07/20at 07:07; Start 12/07/20 at 06:00 Lisinopril (Prinivil) 10 mg DAILY PO Last administered on 12/07/20at 08:41; Start 12/07/20 at 09:00 Insulin Glargine (Lantus Syringe) 80 unit DAILY SQ Last administered on 12/07/20at 09:18; Start 12/07/20 at 09:00 Insulin Human Lispro (HumaLOG) 25 units TIDWMEALS SQ ; Start 12/07/20 at 08:00 Sertraline HCl (Zoloft) 100 mg DAILY PO Last administered on 1/10/21at 08:41; Start 12/07/20 at 09:00 Active Scripts Active Reported Tresiba (Insulin Degludec) 100 Unit/1 Ml Vial 80 Unit SQ DAILY [cbd oil] 250 PO BID Ibuprofen 400 Mg Tablet 400 Mg PO PRN Q6HRS PRN Humalog (Insulin Lispro) 100 Unit/1 Ml Cartridge 25 Unit SQ TIDAC Colestipol Hcl 1 Gm Tablet 1 Gm PO DAILY Diclofenac Sodium 75 Mg Tablet.dr 75 Mg PO DAILY Prilosec (Omeprazole) 10 Mg Capsule.dr 10 Mg PO DAILY Simvastatin 80 Mg Tablet 80 Mg PO HS Fenofibrate (Fenofibrate Nanocrystallized) 145 Mg Tablet 160 Mg PO DAILY Vitamin D2 (Ergocalciferol (Vitamin D2)) 50,000 Unit Capsule 50,000 Unit PO WEEKLY Levothyroxine Sodium 175 Mcg Tablet 175 Mcg PO DAILYAC Feosol (Ferrous Sulfate) 325 Mg Tablet 325 Mg PO TID Lisinopril 10 Mg Tablet 10 Mg PO DAILY Clopidogrel (Clopidogrel Bisulfate) 75 Mg Tablet 75 Mg PO DAILY Sertraline Hcl 100 Mg Tablet 100 Mg PO DAILY Invokana (Canagliflozin) 300 Mg Tablet 300 Mg PO DAILY Metformin Hcl 500 Mg Tablet 500 Mg PO BIDWMEALS Vitals/I & O Vital Sign - Last 24 Hours 12/06/20 12/06/20 12/06/20 12/06/20 10:58 11:41 12:21 14:45 Temp 98.5 98.3 98.5 98.3 Pulse 72 78 Resp 18 16 16 18 B/P (MAP) 122/62 (82) 119/51 (73) Pulse Ox 97 97 O2 Delivery Room Air Room Air Room Air Room Air 12/06/20 12/06/20 12/06/20 12/06/20 16:25 16:58 19:00 19:55 Temp 98.1 98.1 Pulse 72 Resp 16 16 18 B/P (MAP) 133/50 (77) Pulse Ox 96 O2 Delivery Room Air Room Air Room Air Room Air 12/06/20 12/06/20 12/06/20 12/07/20 21:30 22:00 23:57 01:19 Temp 98.2 98.2 Pulse 71 Resp 20 18 18 20 B/P (MAP) 108/31 (56) Pulse Ox 99 O2 Delivery Room Air Room Air Room Air Room Air 12/07/20 12/07/20 12/07/20 12/07/20 02:10 03:12 04:38 05:17 Temp 98.3 98.3 Pulse 75 Resp 18 18 20 18 B/P (MAP) 102/29 (53) Pulse Ox 98 O2 Delivery Room Air Room Air Room Air Room Air 12/07/20 12/07/20 12/07/20 12/07/20 07:10 08:41 08:53 09:29 Temp 98.4 98.4 Pulse 71 71 Resp 18 16 16 B/P (MAP) 148/65 (92) 148/65 Pulse Ox 96 O2 Delivery Room Air Room Air Room Air Intake and Output 12/06/20 12/06/20 12/07/20 15:00 23:00 07:00 Intake Total 0 ml 1200 ml Balance 0 ml 1200 ml Justicifation of Admission Dx: Justifications for Admission: Justification of Admission Dx: Yes AGUILAR NOE MD Dec 07, 2020 09:52
[2020-12-07] MEDS: VANCOMYCIN PER PHARMACY MC PRN (10:43)
[2020-12-07] MEDS: ONDANSETRON PF 4 MG/2 ML VIAL. IVP PRN (10:59)
[2020-12-07 11:00] VITALS: BP 121/35
[2020-12-07 15:00] VITALS: BP 110/46
--- NOTE | 2020-12-07 15:00 | PDOC ---
GI PROGRESS NOTES Date of Service: Date/Time DATE: 12/07/20 TIME: 14:58 Subjective Subjective still with some abd pain, nausea and back pain- still jaundiced Objective Vitals Vital Signs Date Time Temp Pulse Resp B/P (MAP) Pulse Ox O2 Delivery O2 Flow Rate FiO2 12/07/20 11:00 98.5 68 18 121/35 (63) 98 Room Air 98.5 12/07/20 09:29 16 Room Air 12/07/20 08:53 16 Room Air 12/07/20 08:41 71 148/65 12/07/20 08:00 Room Air 12/07/20 07:10 98.4 71 18 148/65 (92) 96 Room Air 98.4 12/07/20 05:17 18 Room Air 12/07/20 04:38 20 Room Air 12/07/20 03:12 98.3 75 18 102/29 (53) 98 Room Air 98.3 12/07/20 02:10 18 Room Air 12/07/20 01:19 20 Room Air 12/06/20 23:57 98.2 71 18 108/31 (56) 99 Room Air 98.2 12/06/20 22:00 18 Room Air 12/06/20 21:30 20 Room Air 12/06/20 19:55 Room Air 12/06/20 19:00 98.1 72 18 133/50 (77) 96 Room Air 98.1 12/06/20 16:58 16 Room Air 12/06/20 16:25 16 Room Air Labs Labs Laboratory Tests Test 12/06/20 22:00 Vancomycin Level Trough 18.4 mcg/mL (10.0-20.0) Vancomycin Last Dose Date Vancomycin Last Dose Time Physical Exam Physical Exam Chest clear Heart regular rate and rhythm Abdomen soft, mildly tender but no point tenderness or masses, normal bowel sounds Assessment Assessment Acute on chronic pancreatitis. Complicated history likely with previous pancreatitis but now with elevated bilirubin, elevated lipase with possible either underlying fibrosis causing bile duct narrowing or an occult neoplasia. She was on Plavix for previous vascular procedure years ago. Her last dose of Plavix was or may be even Tuesday so that is been held for potential ERCP intervention as soon as her pancreatitis improves. Dr. Monterroso will assume her GI care tomorrow Plan Plan Plan okay to have sips of water and ice chips but continue n.p.o. otherwise Monitor labs. Justicifation of Admission Dx: Justifications for Admission: Justification of Admission Dx: Yes REX CHUNG MD Dec 07, 2020 15:00
[2020-12-07] MEDS: oxyCODONE/APAP 5/325 1 TAB TABLET PO PRN (15:57)
[2020-12-07 19:00] VITALS: BP 102/43
[2020-12-07 22:54] VITALS: BP 135/45
[2020-12-08] MEDS: PIPERACILLIN/TAZOBACTAM 3.375 GM in IV NORMAL SALINE 50ML 50 ML IV SCH ×5 (00:12→23:24)
[2020-12-08] MEDS: ONDANSETRON PF 4 MG/2 ML VIAL. IVP PRN (00:17)
[2020-12-08] MEDS: VANCOMYCIN 1.25 GM in IV NORMAL SALINE 250ML 250 ML IV SCH ×2 (01:17→11:58)
[2020-12-08] MEDS: oxyCODONE/APAP 5/325 1 TAB TABLET PO PRN (02:08)
[2020-12-08 03:00] VITALS: BP 133/82
[2020-12-08] MEDS: IV RINGERS,LACTATED 1000ML 1,000 ML IV SCH ×2 (04:47→16:38)
[2020-12-08] MEDS: LEVOTHYROXINE 175 MCG TABLET PO SCH (05:47)
[2020-12-08 07:00] VITALS: BP 130/53
[2020-12-08 07:25] LABS: ALBUMIN 2.1 g/dL (3.4-5.0); ALBUMIN/GLOBULIN RATIO 0.5 (1.0-1.7); CALCIUM 8.9 mg/dL (8.5-10.1); CREATININE 1.4 mg/dL (0.6-1.0); GFR 37.7; POTASSIUM 4.1 mmol/L (3.5-5.1); TOTAL BILIRUBIN 11.6 mg/dL (0.2-1.0); TOTAL PROTEIN 6.7 g/dL (6.4-8.2)
[2020-12-08] MEDS: INSULIN LISPRO 300 UNITS/3 ML VIAL. SQ SCH ×6 (07:44→16:40)
[2020-12-08] MEDS: DOCUSATE SODIUM 100 MG CAPSULE. PO SCH ×2 (08:46→20:35)
[2020-12-08] MEDS: SENNOSIDES/DOCUSATE 8.6/50MG TABLET. PO SCH ×2 (08:46→20:35)
[2020-12-08] MEDS: MORPHINE SULFATE 2 MG/ML VIAL. IV PRN ×3 (08:46→20:32)
[2020-12-08] MEDS: LACTOBACILLUS RHAMNOSUS GG 1 CAPSULE. PO SCH ×2 (08:47→20:35)
[2020-12-08] MEDS: PANTOPRAZOLE IV PUSH 40 MG VIAL. IVP SCH (08:47)
[2020-12-08] MEDS: SERTRALINE 50 MG TABLET. PO SCH (08:49)
[2020-12-08] MEDS: LISINOPRIL 10 MG TABLET PO SCH (08:50)
[2020-12-08] MEDS: HEPARIN for SUB-Q USE 5,000 UNIT/ML VIAL. SQ SCH ×2 (09:00→19:15)
--- NOTE | 2020-12-08 10:20 | PDOC ---
Date of Service: DATE: 12/08/20 TIME: 10:10 Subjective: Subjective: RUQ pain during the night, took almost 3 hours to get pain meds. Some vomiting yesterday. No stool since in ER but passing gas. Agreeable to ERCP. Objective: Vital Signs: Vital Signs Date Time Temp Pulse Resp B/P (MAP) Pulse Ox O2 Delivery O2 Flow Rate FiO2 12/08/20 08:50 75 130/53 12/08/20 08:46 20 12/08/20 07:00 99.0 94 Room Air 99.0 Labs: Laboratory Tests Test 12/08/20 06:40 Sodium Level 137 mmol/L Potassium Level 4.1 mmol/L Chloride Level 101 mmol/L Carbon Dioxide Level 26 mmol/L Anion Gap 10 Blood Urea Nitrogen 15 mg/dL Creatinine 1.4 mg/dL Estimated GFR (Cockcroft-Gault) 37.7 BUN/Creatinine Ratio 11 Glucose Level 172 mg/dL Calcium Level 8.9 mg/dL Total Bilirubin 11.6 mg/dL Direct Bilirubin 10.0 mg/dL Aspartate Amino Transf (AST/SGOT) 160 U/L Alanine Aminotransferase (ALT/SGPT) 77 U/L Alkaline Phosphatase 395 U/L Total Protein 6.7 g/dL Albumin 2.1 g/dL Albumin/Globulin Ratio 0.5 Lipase 2279 U/L URINE CULTURE Final Final LESS THAN 10,000 CFU/ML Normal genitourinary valencia, not indicative of infection on 12/06/20 at 0849 PE: GEN: appears uncomfortable LUNGS: clear anteriorly HEART: RRR ABD: quiet, RUQ discomfort SKIN: +jaundice NEURO/PSYCH: A & O 3 A/P: RUQ pain, vomiting Chronic anemia, elevated LFTs, elevated lipase, coagulopathy (INR 1.7 on 12/05), JACQUELIN (new - defer to primary) Abnormal CT - intrahepatic and extra hepatic biliary ductal dilatation with abrupt cut off dilated CBD proximal to the ampulla, chronic pancreatitis and irregular pancreatic ductal dilation, 1.8cm cystic lesion within the pancreatic neck, fatty stranding surrounding pancreatic tail, cirrhosis and splenomegaly COVID negative 12/05/20 -- Plavix has been held. Will plan for ERCP w/ [facility] tomorrow at 1:00 p.m. Recheck INR. Justicifation of Admission Dx: Justifications for Admission: Justification of Admission Dx: Yes TAJ SHAH Dec 08, 2020 10:20
--- NOTE | 2020-12-08 10:44 | NUR ---
gave heparin 5000 units sq in the left upper quad was unable to have the computer co-sign tried all 3 rn on floor including butter production supervisor
[2020-12-08 11:00] VITALS: BP 123/42
[2020-12-08 11:05] LABS: PROTHROMBIN TIME PATIENT 22.4 SEC (11.7-14.0)
--- NOTE | 2020-12-08 11:09 | NUR ---
SW following. Discussed with RN, pt from home with family, room air, NPO with sips of water and ice chips, COVID-19 negative. Pt having an ERCP today. RN advised no SW needs at this time. SW will continue to follow.
[2020-12-08] MEDS ORDERED: PHYTONADIONE 10 MG/ML AMPUL. SQ ONE (12:00)
[2020-12-08] MEDS: INSULIN GLARGINE SYRINGE. SQ SCH ×2 (12:02→21:00)
--- NOTE | 2020-12-08 14:58 | PDOC ---
[facility] PROGRESS NOTE Date of Service DOS: DATE: 12/08/20 TIME: 14:57 Chief Complaint Chief Complaint Acute pancreatitis Acute abdominal pain secondary to acute pancreatitis and progressive Ascites Obesity with a BMI of 31 GERD History of diverticulosis History of cholecystectomy History of hypothyroidism acquired most likely History of diabetes mellitus type 2 History of dyslipidemia History of nephrolithiasis Plan keep the patient n.p.o. IV fluid resuscitation Symptomatic relief of pain and nausea We will follow recommendations from GI Further recommendations will be based on the clinical course DVT prophylaxis heparin History of Present Illness History of Present Illness 65-year-old female with past medical history of diabetes mellitus type 2 hypothyroidism nephrolithiasis and GERD who was in her usual state of health until approximately 1 month prior to her admission when she started noticing epigastric pain which subsequently has migrated to quadrant pain. Patient also has radiation to the mid back and she has had decrease in appetite with subsequent 15 pound weight loss. The patient says that she was not hungry at all in had bouts of excessive salivation nausea and vomiting of clear liquid mostly sputum. Patient was seen in the outpatient setting and was in the process of being worked up since the patient was noted to have jaundice. This was noted by her chiropractor last week but due to the progressive nature of her symptoms worsening discomfort she decided to come to the emergency department for further evaluation and treatment. As part of her Imaging work-up she underwent CT of the abdomen with and without contrast with the following impression 1. Intrahepatic and extra hepatic biliary ductal dilatation with abrupt cut off of a dilated common bile duct slightly proximal to the ampulla. This may be due to a stricture or occult obstructing lesion. Tissue sampling with endoscopic ultrasound can be performed. MRCP may also be useful for further characterization. 2. Chronic pancreatitis with associated pancreatic calcifications and irregular pancreatic ductal dilatation. There is a 1.8 cm cystic lesion within the pancreatic neck which may be a pseudocyst or cystic neoplasm such as an intraductal papillary mucinous neoplasm. She was found to have an elevated lipase and will be admitted for treatment of pancreatitis. GI consultation has been requested as well to evaluate the abnormal findings on CAT scan. Reassurance has been provided plan of care explained in detail and all of her concerns addressed to the best of my abilities greater than 60 minutes were spent in the assessment of the patient counseling coordination of care and formulation of treatment plan 12/06: No acute events reported overnight, case discussed with nursing staff patient in no acute distress no complaints during my visit 12/07: Patient had a "rough night". At the time of my note she is resting in no acute distress. Plan of care discussed in detail all concerns addressed to the best of my abilities. 12/08/2020 No acute events overnight. Patient seen and examined bedside. Continues to have abdominal pain which requiring pain medication. Plan for ERCP tomorrow. Patient's chart, labs, images were reviewed and discussed with RN Vitals/I&O Vitals/I&O: Vital Signs Date Time Temp Pulse Resp B/P (MAP) Pulse Ox O2 Delivery O2 Flow Rate FiO2 12/08/20 11:00 98.6 67 14 123/42 (69) 93 Room Air 98.6 I & O 12/07/20 12/07/20 12/08/20 15:00 23:00 07:00 Intake Total 1200 ml Balance 1200 ml Physical Exam Physical Exam: Gen.: well-developed well-nourished in no apparent distress Head: Normal shape atraumatic Eyes: Pupils equal reactive to light and accommodation, jaundiced conjunctivae and lids Ears: Normal shape Nose: Normal shape no trauma Mouth: No exudates of the back of throat no thrush no lesions Neck: Supple no JVD no carotid bruit or lymphadenopathy no thyromegaly Chest: Lungs clear to auscultation with good inspiratory effort no crackles rales or rhonchi Cardiovascular: S1-S2 regular rhythm no murmurs gallops or rubs Abdomen: Bowel sounds present soft nontender no hepatosplenomegaly appreciated sign Extremities: No clubbing no cyanosis 2+ edema peripheral pulses palpated bila terally Neurological: Alert awake oriented in person time place and situation, cranial nerves II through XII intact, no motor or sensory deficits appreciated Psych: Appropriate mood, cooperative Labs Labs: Laboratory Tests Test 12/08/20 06:40 Prothrombin Time 22.4 SEC (11.7-14.0) Prothromb Time International Ratio 2.0 (0.8-1.1) Sodium Level 137 mmol/L (136-145) Potassium Level 4.1 mmol/L (3.5-5.1) Chloride Level 101 mmol/L (98-107) Carbon Dioxide Level 26 mmol/L (21-32) Anion Gap 10 (6-14) Blood Urea Nitrogen 15 mg/dL (7-20) Creatinine 1.4 mg/dL (0.6-1.0) Estimated GFR (Cockcroft-Gault) 37.7 BUN/Creatinine Ratio 11 (6-20) Glucose Level 172 mg/dL (70-99) Calcium Level 8.9 mg/dL (8.5-10.1) Total Bilirubin 11.6 mg/dL (0.2-1.0) Direct Bilirubin 10.0 mg/dL (0.0-0.2) Aspartate Amino Transf (AST/SGOT) 160 U/L (15-37) Alanine Aminotransferase (ALT/SGPT) 77 U/L (14-59) Alkaline Phosphatase 395 U/L (46-116) Total Protein 6.7 g/dL (6.4-8.2) Albumin 2.1 g/dL (3.4-5.0) Albumin/Globulin Ratio 0.5 (1.0-1.7) Lipase 2279 U/L (73-393) Assessment and Plan Assessmemt and Plan Problems Medical Problems: (1) Common bile duct dilatation Status: Acute (2) Hyperbilirubinemia Status: Acute (3) Pancreatitis Status: Acute Comment Review of Relevant I have reviewed the following items fabricio (where applicable) has been applied. Medications: Current Medications Medications (Trade) Dose Ordered Sig/Lulú Route PRN Reason Start Time Stop Time Status Last Admin Dose Admin Insulin Glargine (Lantus Syringe) 40 unit BID SQ 12/08/20 11:00 12/08/20 12:02 Phytonadione (Vitamin K Ampule) 10 mg 1X ONCE SQ 12/08/20 12:00 12/08/20 12:01 DC 12/08/20 12:46 Justifications for Admission Other Justification JAYANT WINTERS MD Dec 08, 2020 14:58
[2020-12-08 15:16] VITALS: BP 135/61
[2020-12-08 19:00] VITALS: BP 121/55
[2020-12-08 23:11] VITALS: BP 114/42
[2020-12-09] VITALS (11 sets, daily range): BP systolic 108–141; BP diastolic 31–55
[2020-12-09] MEDS: VANCOMYCIN 1.25 GM in IV NORMAL SALINE 250ML 250 ML IV SCH ×3 (00:48→23:11)
[2020-12-09] MEDS: DEXTROSE 50% 25 GM / 50ML DISP.SYRIN. IV PRN ×2 (01:16→07:27)
[2020-12-09] MEDS: MORPHINE SULFATE 2 MG/ML VIAL. IV PRN ×4 (02:54→20:31)
[2020-12-09] MEDS: IV RINGERS,LACTATED 1000ML 1,000 ML IV SCH ×3 (05:00→15:00)
[2020-12-09] MEDS: LEVOTHYROXINE 175 MCG TABLET PO SCH (05:47)
[2020-12-09] MEDS: PIPERACILLIN/TAZOBACTAM 3.375 GM in IV NORMAL SALINE 50ML 50 ML IV SCH ×3 (06:01→20:04)
[2020-12-09] MEDS ORDERED: IV RINGERS,LACTATED 1000ML 1,000 ML IV SCH (07:00)
[2020-12-09] MEDS ORDERED: IOHEXOL 300 MG/ML 100ML VIAL. ONE (07:05)
[2020-12-09 07:14] LABS: HEMOGLOBIN 9.3 g/dL (12.0-15.5); RED BLOOD COUNT 3.03 x10^6/uL (3.50-5.40)
[2020-12-09 07:28] LABS: PROTHROMBIN TIME PATIENT 17.2 SEC (11.7-14.0)
[2020-12-09 07:53] LABS: ALBUMIN/GLOBULIN RATIO 0.4 (1.0-1.7); CALCIUM 8.9 mg/dL (8.5-10.1); CREATININE 1.4 mg/dL (0.6-1.0); GFR 37.7; TOTAL BILIRUBIN 11.7 mg/dL (0.2-1.0); TOTAL PROTEIN 6.6 g/dL (6.4-8.2)
[2020-12-09] MEDS: INSULIN LISPRO 300 UNITS/3 ML VIAL. SQ SCH ×6 (07:55→17:00)
[2020-12-09] MEDS: LACTOBACILLUS RHAMNOSUS GG 1 CAPSULE. PO SCH ×2 (07:56→20:04)
[2020-12-09] MEDS: SENNOSIDES/DOCUSATE 8.6/50MG TABLET. PO SCH ×2 (07:56→20:04)
[2020-12-09] MEDS: DOCUSATE SODIUM 100 MG CAPSULE. PO SCH ×2 (07:56→20:04)
[2020-12-09] MEDS: HEPARIN for SUB-Q USE 5,000 UNIT/ML VIAL. SQ SCH ×2 (07:57→20:07)
[2020-12-09] MEDS: INSULIN GLARGINE SYRINGE. SQ SCH ×2 (07:57→20:04)
[2020-12-09] MEDS: SERTRALINE 50 MG TABLET. PO SCH (09:00)
[2020-12-09] MEDS: LISINOPRIL 10 MG TABLET PO SCH (09:00)
--- NOTE | 2020-12-09 09:43 | NUR ---
SW following. Discussed with RN, pt from home with family, room air, NPO, COVID-19 negative. Pt scheduled for the ERCP today. RN advised no SW needs at this time. SW will continue to follow.
--- NOTE | 2020-12-09 09:52 | PDOC ---
Date of Service: DATE: 12/09/20 TIME: 09:51 Objective: Vital Signs: Vital Signs Date Time Temp Pulse Resp B/P (MAP) Pulse Ox O2 Delivery O2 Flow Rate FiO2 12/09/20 07:00 98.2 56 18 112/47 (68) 93 Room Air 98.2 Labs: Laboratory Tests Test 12/08/20 20:33 12/09/20 01:12 12/09/20 01:33 12/09/20 07:04 Glucose (Fingerstick) 91 mg/dL 44 mg/dL 157 mg/dL White Blood Count 6.0 x10^3/uL Red Blood Count 3.03 x10^6/uL Hemoglobin 9.3 g/dL Hematocrit 28.0 % Mean Corpuscular Volume 92 fL Mean Corpuscular Hemoglobin 31 pg Mean Corpuscular Hemoglobin Concent 33 g/dL Red Cell Distribution Width 23.0 % Platelet Count 210 x10^3/uL Prothrombin Time 17.2 SEC Prothromb Time International Ratio 1.4 Sodium Level 138 mmol/L Potassium Level 4.0 mmol/L Chloride Level 103 mmol/L Carbon Dioxide Level 27 mmol/L Anion Gap 8 Blood Urea Nitrogen 17 mg/dL Creatinine 1.4 mg/dL Estimated GFR (Cockcroft-Gault) 37.7 BUN/Creatinine Ratio 12 Glucose Level 54 mg/dL Calcium Level 8.9 mg/dL Total Bilirubin 11.7 mg/dL Aspartate Amino Transf (AST/SGOT) 158 U/L Alanine Aminotransferase (ALT/SGPT) 76 U/L Alkaline Phosphatase 377 U/L Total Protein 6.6 g/dL Albumin 2.0 g/dL Albumin/Globulin Ratio 0.4 Lipase 999 U/L Test 12/09/20 07:16 12/09/20 08:02 Glucose (Fingerstick) 65 mg/dL 134 mg/dL A/P: D/w nurse this morning - vit K given yesterday but not FFP - INR improved to 1.4 and lab wondering if transfusion needed. Reviewed w/ Dr. Monterroso - hold FFP, proceed w/ ERCP this afternoon. Justicifation of Admission Dx: Justifications for Admission: Justification of Admission Dx: Yes TAJ SHAH Dec 09, 2020 09:52
[2020-12-09] MEDS: PANTOPRAZOLE IV PUSH 40 MG VIAL. IVP SCH (10:10)
[2020-12-09] MEDS: VANCOMYCIN PER PHARMACY MC PRN ×2 (13:32→13:35)
--- NOTE | 2020-12-09 14:46 | PDOC ---
[employer] PROGRESS NOTE Date of Service DOS: DATE: 12/09/20 TIME: 14:44 Chief Complaint Chief Complaint Acute pancreatitis Acute abdominal pain secondary to acute pancreatitis and progressive Ascites Obesity with a BMI of 31 GERD History of diverticulosis History of cholecystectomy History of hypothyroidism acquired most likely History of diabetes mellitus type 2 History of dyslipidemia History of nephrolithiasis Plan keep the patient n.p.o. IV fluid resuscitation Symptomatic relief of pain and nausea We will follow recommendations from GI Further recommendations will be based on the clinical course DVT prophylaxis heparin History of Present Illness History of Present Illness 65-year-old female with past medical history of diabetes mellitus type 2 hypothyroidism nephrolithiasis and GERD who was in her usual state of health until approximately 1 month prior to her admission when she started noticing epigastric pain which subsequently has migrated to quadrant pain. Patient also has radiation to the mid back and she has had decrease in appetite with subsequent 15 pound weight loss. The patient says that she was not hungry at all in had bouts of excessive salivation nausea and vomiting of clear liquid mostly sputum. Patient was seen in the outpatient setting and was in the process of being worked up since the patient was noted to have jaundice. This was noted by her chiropractor last week but due to the progressive nature of her symptoms worsening discomfort she decided to come to the emergency department for further evaluation and treatment. As part of her Imaging work-up she underwent CT of the abdomen with and without contrast with the following impression 1. Intrahepatic and extra hepatic biliary ductal dilatation with abrupt cut off of a dilated common bile duct slightly proximal to the ampulla. This may be due to a stricture or occult obstructing lesion. Tissue sampling with endoscopic ultrasound can be performed. MRCP may also be useful for further characterization. 2. Chronic pancreatitis with associated pancreatic calcifications and irregular pancreatic ductal dilatation. There is a 1.8 cm cystic lesion within the pancreatic neck which may be a pseudocyst or cystic neoplasm such as an intraductal papillary mucinous neoplasm. She was found to have an elevated lipase and will be admitted for treatment of pancreatitis. GI consultation has been requested as well to evaluate the abnormal findings on CAT scan. Reassurance has been provided plan of care explained in detail and all of her concerns addressed to the best of my abilities greater than 60 minutes were spent in the assessment of the patient counseling coordination of care and formulation of treatment plan 12/06: No acute events reported overnight, case discussed with nursing staff patient in no acute distress no complaints during my visit 12/07: Patient had a "rough night". At the time of my note she is resting in no acute distress. Plan of care discussed in detail all concerns addressed to the best of my abilities. 12/08/2020 No acute events overnight. Patient seen and examined bedside. Continues to have abdominal pain which requiring pain medication. Plan for ERCP tomorrow. Patient's chart, labs, images were reviewed and discussed with RN 12/09/2020 No acute events overnight. ERCP planned for today. Pending final results and findings. Patient's chart, labs, images were reviewed and discussed with RN Vitals/I&O Vitals/I&O: Vital Signs Date Time Temp Pulse Resp B/P (MAP) Pulse Ox O2 Delivery O2 Flow Rate FiO2 12/09/20 12:39 98.1 62 20 99 98.1 12/09/20 12:37 Room Air 12/09/20 11:00 117/31 (59) Physical Exam Physical Exam: Gen.: well-developed well-nourished in no apparent distress Head: Normal shape atraumatic Eyes: Pupils equal reactive to light and accommodation, jaundiced conjunctivae and lids Ears: Normal shape Nose: Normal shape no trauma Mouth: No exudates of the back of throat no thrush no lesions Neck: Supple no JVD no carotid bruit or lymphadenopathy no thyromegaly Chest: Lungs clear to auscultation with good inspiratory effort no crackles rales or rhonchi Cardiovascular: S1-S2 regular rhythm no murmurs gallops or rubs Abdomen: Bowel sounds present soft nontender no hepatosplenomegaly appreciated sign Extremities: No clubbing no cyanosis 2+ edema peripheral pulses palpated bilaterally Neurological: Alert awake oriented in person time place and situation, cranial nerves II through XII intact, no motor or sensory deficits appreciated Psych: Appropriate mood, cooperative Labs Labs: Laboratory Tests Test 12/08/20 20:33 12/09/20 01:12 12/09/20 01:33 12/09/20 07:04 Glucose (Fingerstick) 91 mg/dL (70-99) 44 mg/dL (70-99) 157 mg/dL (70-99) White Blood Count 6.0 x10^3/uL (4.0-11.0) Red Blood Count 3.03 x10^6/uL (3.50-5.40) Hemoglobin 9.3 g/dL (12.0-15.5) Hematocrit 28.0 % (36.0-47.0) Mean Corpuscular Volume 92 fL (79-100) Mean Corpuscular Hemoglobin 31 pg (25-35) Mean Corpuscular Hemoglobin Concent 33 g/dL (31-37) Red Cell Distribution Width 23.0 % (11.5-14.5) Platelet Count 210 x10^3/uL (140-400) Prothrombin Time 17.2 SEC (11.7-14.0) Prothromb Time International Ratio 1.4 (0.8-1.1) Sodium Level 138 mmol/L (136-145) Potassium Level 4.0 mmol/L (3.5-5.1) Chloride Level 103 mmol/L (98-107) Carbon Dioxide Level 27 mmol/L (21-32) Anion Gap 8 (6-14) Blood Urea Nitrogen 17 mg/dL (7-20) Creatinine 1.4 mg/dL (0.6-1.0) Estimated GFR (Cockcroft-Gault) 37.7 BUN/Creatinine Ratio 12 (6-20) Glucose Level 54 mg/dL (70-99) Calcium Level 8.9 mg/dL (8.5-10.1) Total Bilirubin 11.7 mg/dL (0.2-1.0) Aspartate Amino Transf (AST/SGOT) 158 U/L (15-37) Alanine Aminotransferase (ALT/SGPT) 76 U/L (14-59) Alkaline Phosphatase 377 U/L (46-116) Total Protein 6.6 g/dL (6.4-8.2) Albumin 2.0 g/dL (3.4-5.0) Albumin/Globulin Ratio 0.4 (1.0-1.7) Lipase 999 U/L (73-393) Test 12/09/20 07:16 12/09/20 08:02 12/09/20 10:50 Glucose (Fingerstick) 65 mg/dL (70-99) 134 mg/dL (70-99) 92 mg/dL (70-99) Assessment and Plan Assessmemt and Plan Problems Medical Problems: (1) Common bile duct dilatation Status: Acute (2) Hyperbilirubinemia Status: Acute (3) Pancreatitis Status: Acute Comment Review of Relevant I have reviewed the following items fabricio (where applicable) has been applied. Justifications for Admission Other Justification JAYANT WINTERS MD Dec 09, 2020 14:46
--- NOTE | 2020-12-09 14:53 | PDOC4 ---
Operative Note Operative Note ERCp with sphincterotomy Meds Propofol per anesthesia Pre-op dx jaundice/abnl Ct scan s/p alin post-op dx retained CBD stone with apparent biliary stricture with retained surgical clip -balloon couldn't be passed despite sphincterotomy Plan serial labs repeat ERCP at [facility] for biliary stricture and possible stone extraction TAMRA CERNA MD Dec 09, 2020 14:52
[2020-12-09] MEDS ORDERED: PROPOFOL 10 MG/ML (20ML) VIAL. IV ONE (14:55)
[2020-12-09] MEDS ORDERED: LIDOCAINE 2% PF 5 ML VIAL. ONE (14:55)
--- NOTE | 2020-12-09 17:39 | RAD ---
ERCP INDICATION: Jaundice, pancreatitis and abnormal common bile duct. COMPARISON: Abdomen pelvis CT with and without IV contrast of 12/05/2020 FINDINGS: Under the direction of Dr. Monterroso, fluoroscopically was provided during ERCP with sphincterotomy and attempt at stone extraction which was unsuccessful due to a biliary stricture. 5 images were acquire d for procedural documentation. Total fluoroscopy time was 4 minutes and 4 seconds. IMPRESSION: Fluoroscopic imaging provided during ERCP and sphincterotomy for attempted stone extraction. Electronically signed by: Deepthi Desai MD (12/09/2020 5:36 PM) [id number]
[2020-12-10] MEDS: PIPERACILLIN/TAZOBACTAM 3.375 GM in IV NORMAL SALINE 50ML 50 ML IV SCH ×4 (00:50→17:47)
[2020-12-10] MEDS: IV RINGERS,LACTATED 1000ML 1,000 ML IV SCH ×3 (01:00→20:06)
[2020-12-10] MEDS: MORPHINE SULFATE 2 MG/ML VIAL. IV PRN ×5 (02:50→20:06)
[2020-12-10 03:00] VITALS: BP 129/79
[2020-12-10] MEDS: LEVOTHYROXINE 175 MCG TABLET PO SCH (06:18)
[2020-12-10 07:00] VITALS: BP 129/40
[2020-12-10 07:29] LABS: HEMATOCRIT 28.3 % (36.0-47.0); HEMOGLOBIN 9.3 g/dL (12.0-15.5); MEAN CORPUSCULAR HEMOGLOBIN 31 pg (25-35); MEAN CORPUSCULAR HGB CONC 33 g/dL (31-37); MEAN CORPUSCULAR VOLUME 94 fL (79-100); PLATELET COUNT 197 x10^3/uL (140-400); RED CELL DISTRIBUTION WIDTH 22.6 % (11.5-14.5); WHITE BLOOD COUNT 5.3 x10^3/uL (4.0-11.0)
[2020-12-10 07:35] LABS: ALBUMIN 1.9 g/dL (3.4-5.0); ALBUMIN/GLOBULIN RATIO 0.4 (1.0-1.7); CALCIUM 8.4 mg/dL (8.5-10.1); CREATININE 1.4 mg/dL (0.6-1.0); GFR 37.7; TOTAL PROTEIN 6.3 g/dL (6.4-8.2)
[2020-12-10] MEDS: INSULIN LISPRO 300 UNITS/3 ML VIAL. SQ SCH ×6 (08:00→17:50)
[2020-12-10] MEDS: LISINOPRIL 10 MG TABLET PO SCH (08:31)
[2020-12-10] MEDS: SERTRALINE 50 MG TABLET. PO SCH (08:32)
[2020-12-10] MEDS: LACTOBACILLUS RHAMNOSUS GG 1 CAPSULE. PO SCH ×2 (08:32→20:06)
[2020-12-10] MEDS: SENNOSIDES/DOCUSATE 8.6/50MG TABLET. PO SCH ×2 (08:32→20:06)
[2020-12-10] MEDS: PANTOPRAZOLE IV PUSH 40 MG VIAL. IVP SCH (08:32)
[2020-12-10] MEDS: DOCUSATE SODIUM 100 MG CAPSULE. PO SCH ×2 (08:49→20:06)
[2020-12-10] MEDS: INSULIN GLARGINE SYRINGE. SQ SCH ×2 (08:50→20:14)
--- NOTE | 2020-12-10 09:14 | PDOC ---
Date of Service: DATE: 12/10/20 TIME: 09:11 Subjective: Subjective: Feeling better. Just back pain from the hospital bed. Objective: Vital Signs: Vital Signs Date Time Temp Pulse Resp B/P (MAP) Pulse Ox O2 Delivery O2 Flow Rate FiO2 12/10/20 08:31 66 129/40 12/10/20 07:00 98.0 16 97 Room Air 98.0 12/09/20 15:00 8 Labs: Laboratory Tests Test 12/09/20 10:50 12/09/20 16:38 12/10/20 07:08 Glucose (Fingerstick) 92 mg/dL (70-99) 131 mg/dL (70-99) 173 mg/dL (70-99) Imaging: ERCP with sphincterotomy 12/09/20 Pre-op dx jaundice/abnl Ct scan s/p alin post-op dx retained CBD stone with apparent biliary stricture with retained surgical clip -balloon couldn't be passed despite sphincterotomy Plan serial labs repeat ERCP at [facility] for biliary stricture and possible stone extraction PE: GEN: NAD LUNGS: CTAB HEART: RRR, ABD: quiet, soft, non-tender when I saw SKIN: +jaundice NEURO/PSYCH: A & O 3 A/P: Choledocholithiasis, biliary stricture w/ retained surgical clip - s/p ERCP/sphincterotomy - couldn't pass balloon Jaundice - bili and Alk Phos a bit worse COVID negative 12/05/20 -- Plans to try regular diet. Will review w/ Dr. Monterroso. Justicifation of Admission Dx: Justifications for Admission: Justification of Admission Dx: Yes TAJ SHAH Dec 10, 2020 09:14
--- NOTE | 2020-12-10 10:01 | NUR ---
LUANN following. Discussed with RN, pt from home with family, room air, regular diet, COVID-19 negative. ERCP unsuccessful yesterday, pt needing to be transferred to [facility] for repeat ERCP for biliary stricture and possible stone extraction. LUANN initiated [facility] transfer, clinicals faxed and images clouded. Awaiting acceptance decision. LUANN will continue to follow. Addendum: 12/10/20 at 1226 by JEROMY KONG is requesting pt's Bilirubin be repeated later this afternoon to determine if it is stable. If it is stable then will schedule pt for an outpatient ERCP on Tuesday, if it has increased a lot, they may accept pt for an inpatient transfer. They did report they do not have beds today so far. Dr. Ayala also spoke with the transfer nurse, and is aware of plan. RN notified. Addendum: 12/10/20 at 1552 by JEROMY KONG LUANN notified [facility] of pt's Bilirubin result. [facility] have scheduled pt for an ERCP with [facility] on Tuesday at 1500, and is to be discharged on an abx of Dr. Ayala's choice. LUANN provided pt's contact phone number to [facility] so the GI ticket scheduler can contact pt to go over instructions. [facility] and Dr. Ayala notified. LUANN will continue to follow.
[2020-12-10 10:12] LABS: % EOS 7 % (0-5); % LYMPHS 21 % (24-48); % SEGS 72 % (35-66)
[2020-12-10] MEDS: LIDOCAINE (700MG/PATCH) PATCH. TD SCH (10:12)
[2020-12-10 10:20] LABS: PLT ESTIMATE ADEQUATE (ADEQUATE)
[2020-12-10 11:00] VITALS: BP 141/47
--- NOTE | 2020-12-10 11:00 | NUR ---
critical vanco trough reported to [facility] Esquivel
--- NOTE | 2020-12-10 11:20 | PDOC ---
[employer] PROGRESS NOTE Date of Service DOS: DATE: 12/10/20 TIME: 11:18 Chief Complaint Chief Complaint Biliary stricture with retained choledocholithiasis Acute pancreatitis Acute abdominal pain secondary to acute pancreatitis and progressive Ascites Obesity with a BMI of 31 GERD History of diverticulosis History of cholecystectomy History of hypothyroidism acquired most likely History of diabetes mellitus type 2 History of dyslipidemia History of nephrolithiasis Plan keep the patient n.p.o. IV fluid resuscitation Symptomatic relief of pain and nausea We will follow recommendations from GI Further recommendations will be based on the clinical course DVT prophylaxis heparin History of Present Illness History of Present Illness 65-year-old female with past medical history of diabetes mellitus type 2 hypothyroidism nephrolithiasis and GERD who was in her usual state of health until approximately 1 month prior to her admission when she started noticing epigastric pain which subsequently has migrated to quadrant pain. Patient also has radiation to the mid back and she has had decrease in appetite with subsequent 15 pound weight loss. The patient says that she was not hungry at all in had bouts of excessive salivation nausea and vomiting of clear liquid mostly sputum. Patient was seen in the outpatient setting and was in the process of being worked up since the patient was noted to have jaundice. This was noted by her chiropractor last week but due to the progressive nature of her symptoms worsening discomfort she decided to come to the emergency department for further evaluation and treatment. As part of her Imaging work-up she underwent CT of the abdomen with and without contrast with the following impression 1. Intrahepatic and extra hepatic biliary ductal dilatation with abrupt cut off of a dilated common bile duct slightly proximal to the ampulla. This may be due to a stricture or occult obstructing lesion. Tissue sampling with endoscopic ultrasound can be performed. MRCP may also be useful for further characterization. 2. Chronic pancreatitis with associated pancreatic calcifications and irregular pancreatic ductal dilatation. There is a 1.8 cm cystic lesion within the pancreatic neck which may be a pseudocyst or cystic neoplasm such as an intraductal papillary mucinous neoplasm. She was found to have an elevated lipase and will be admitted for treatment of pancreatitis. GI consultation has been requested as well to evaluate the abnormal findings on CAT scan. Reassurance has been provided plan of care explained in detail and all of her concerns addressed to the best of my abilities greater than 60 minutes were spent in the assessment of the patient counseling coordination of care and formulation of treatment plan 12/06: No acute events reported overnight, case discussed with nursing staff patient in no acute distress no complaints during my visit 12/07: Patient had a "rough night". At the time of my note she is resting in no acute distress. Plan of care discussed in detail all concerns addressed to the best of my abilities. 12/08/2020 No acute events overnight. Patient seen and examined bedside. Continues to have abdominal pain which requiring pain medication. Plan for ERCP tomorrow. Patient's chart, labs, images were reviewed and discussed with RN 12/09/2020 No acute events overnight. ERCP planned for today. Pending final results and findings. Patient's chart, labs, images were reviewed and discussed with RN 12/10/2020 No acute events overnight. Patient is afebrile. ERCP was unsuccessful in removing stone due to biliary stricture. Patient is tolerating breakfast today. Continues to be jaundiced. Pending transfer to [facility] for repeat ERCP. Patient's chart, labs, images were reviewed and discussed with RN Vitals/I&O Vitals/I&O: Vital Signs Date Time Temp Pulse Resp B/P (MAP) Pulse Ox O2 Delivery O2 Flow Rate FiO2 12/10/20 08:31 66 129/40 12/10/20 07:00 98.0 16 97 Room Air 98.0 12/09/20 15:00 8 I & O 12/09/20 12/09/20 12/10/20 15:00 23:00 07:00 Intake Total 1200 ml Balance 1200 ml Physical Exam Physical Exam: Gen.: well-developed well-nourished in no apparent distress Head: Normal shape atraumatic Eyes: Pupils equal reactive to light and accommodation, jaundiced conjunctivae and lids Ears: Normal shape Nose: Normal shape no trauma Mouth: No exudates of the back of throat no thrush no lesions Neck: Supple no JVD no carotid bruit or lymphadenopathy no thyromegaly Chest: Lungs clear to auscultation with good inspiratory effort no crackles rales or rhonchi Cardiovascular: S1-S2 regular rhythm no murmurs gallops or rubs Abdomen: Bowel sounds present soft nontender no hepatosplenomegaly appreciated sign Extremities: No clubbing no cyanosis 2+ edema peripheral pulses palpated bilaterally Neurological: Alert awake oriented in person time place and situation, cranial nerves II through XII intact, no motor or sensory deficits appreciated Psych: Appropriate mood, cooperative Labs Labs: Laboratory Tests Test 12/09/20 16:38 12/10/20 06:32 12/10/20 07:08 Glucose (Fingerstick) 131 mg/dL (70-99) 173 mg/dL (70-99) White Blood Count 5.3 x10^3/uL (4.0-11.0) Red Blood Count 3.00 x10^6/uL (3.50-5.40) Hemoglobin 9.3 g/dL (12.0-15.5) Hematocrit 28.3 % (36.0-47.0) Mean Corpuscular Volume 94 fL (79-100) Mean Corpuscular Hemoglobin 31 pg (25-35) Mean Corpuscular Hemoglobin Concent 33 g/dL (31-37) Red Cell Distribution Width 22.6 % (11.5-14.5) Platelet Count 197 x10^3/uL (140-400) Segmented Neutrophils % 72 % (35-66) Lymphocytes % 21 % (24-48) Eosinophils % 7 % (0-5) Platelet Estimate Adequate (ADEQUATE) Sodium Level 138 mmol/L (136-145) Potassium Level 4.0 mmol/L (3.5-5.1) Chloride Level 103 mmol/L (98-107) Carbon Dioxide Level 24 mmol/L (21-32) Anion Gap 11 (6-14) Blood Urea Nitrogen 17 mg/dL (7-20) Creatinine 1.4 mg/dL (0.6-1.0) Estimated GFR (Cockcroft-Gault) 37.7 BUN/Creatinine Ratio 12 (6-20) Glucose Level 170 mg/dL (70-99) Calcium Level 8.4 mg/dL (8.5-10.1) Total Bilirubin 13.0 mg/dL (0.2-1.0) Aspartate Amino Transf (AST/SGOT) 140 U/L (15-37) Alanine Aminotransferase (ALT/SGPT) 69 U/L (14-59) Alkaline Phosphatase 389 U/L (46-116) Total Protein 6.3 g/dL (6.4-8.2) Albumin 1.9 g/dL (3.4-5.0) Albumin/Globulin Ratio 0.4 (1.0-1.7) Amylase Level 149 U/L (25-115) Lipase 1493 U/L (73-393) Assessment and Plan Assessmemt and Plan Problems Medical Problems: (1) Common bile duct dilatation Status: Acute (2) Hyperbilirubinemia Status: Acute (3) Pancreatitis Status: Acute Comment Review of Relevant I have reviewed the following items fabricio (where applicable) has been applied. Medications: Current Medications Medications (Trade) Dose Ordered Sig/Lulú Route PRN Reason Start Time Stop Time Status Last Admin Dose Admin Lidocaine (Lidoderm) 2 patch DAILY TD 12/10/20 10:30 12/10/20 10:12 Justifications for Admission Other Justification JAYANT WINTERS MD Dec 10, 2020 11:20
[2020-12-10 11:25] LABS: VANC TR 32.6 mcg/mL (10.0-20.0)
[2020-12-10] MEDS: VANCOMYCIN PER PHARMACY MC PRN (11:34)
--- NOTE | 2020-12-10 11:34 | NUR ---
Pharmacy Vancomycin Dosing Note S: Consulted to monitor and dose vancomycin started 12/05/20. O: PHYLLIS LEMON is a 65 year old F with Empiric. Other Antibiotics: zosyn LABS: Last BUN: 17 Last Creatinine: 1.4 Creatinine Clearance: 47 mL/min Last WBC: 5.3 Tmax (past 24 hours): 98 I/O: 1200 / - (6 voids) Drug Levels: Last Trough level: 32.6 on 12/10/20 at 1050 Last dose given 12/09/20 at 2311 Vancomycin Dosing: Dosing Weight: Actual Target Trough: 10-20 A: Based on: patient's trough level P: 1. Hold further dosing until random level on 12/11. 2. Follow up Random level on 12/11/20 at 1100. 3. Pharmacy will continue to monitor, follow and adjust therapy as needed. DANIELA GALINDO RPH, 12/10/20 [id number]
[2020-12-10] MEDS: HEPARIN for SUB-Q USE 5,000 UNIT/ML VIAL. SQ SCH ×2 (11:36→20:14)
[2020-12-10] MEDS: ONDANSETRON PF 4 MG/2 ML VIAL. IVP PRN (12:16)
[2020-12-10 14:33] LABS: DIRECT BILIRUBIN 12.7 mg/dL (0.0-0.2); TOTAL BILIRUBIN 15.1 mg/dL (0.2-1.0)
[2020-12-10 15:00] VITALS: BP 119/40
[2020-12-10] MEDS ORDERED: LOPERAMIDE 2 MG CAPSULE PO PRN (15:15)
[2020-12-10 19:00] VITALS: BP 110/52
[2020-12-10 23:01] VITALS: BP 95/37
[2020-12-11] MEDS: PIPERACILLIN/TAZOBACTAM 3.375 GM in IV NORMAL SALINE 50ML 50 ML IV SCH ×3 (00:07→11:38)
[2020-12-11 03:00] VITALS: BP 104/49
[2020-12-11] MEDS: LEVOTHYROXINE 175 MCG TABLET PO SCH (06:21)
[2020-12-11 07:00] VITALS: BP 115/36
[2020-12-11] MEDS: IV RINGERS,LACTATED 1000ML 1,000 ML IV SCH ×2 (07:00→10:26)
[2020-12-11] MEDS: DOCUSATE SODIUM 100 MG CAPSULE. PO SCH (07:16)
[2020-12-11] MEDS: SENNOSIDES/DOCUSATE 8.6/50MG TABLET. PO SCH (07:16)
[2020-12-11] MEDS ORDERED: PANTOPRAZOLE 40 MG TABLET.DR. PO SCH (07:30)
[2020-12-11] MEDS: INSULIN LISPRO 300 UNITS/3 ML VIAL. SQ SCH ×4 (08:00→11:43)
[2020-12-11] MEDS: LACTOBACILLUS RHAMNOSUS GG 1 CAPSULE. PO SCH (08:46)
[2020-12-11] MEDS: SERTRALINE 50 MG TABLET. PO SCH (08:47)
[2020-12-11] MEDS: LISINOPRIL 10 MG TABLET PO SCH (08:47)
[2020-12-11] MEDS: oxyCODONE/APAP 5/325 1 TAB TABLET PO PRN (08:47)
[2020-12-11] MEDS: INSULIN GLARGINE SYRINGE. SQ SCH (08:48)
[2020-12-11] MEDS: LIDOCAINE (700MG/PATCH) PATCH. TD SCH (08:48)
[2020-12-11] MEDS: HEPARIN for SUB-Q USE 5,000 UNIT/ML VIAL. SQ SCH (08:53)
--- NOTE | 2020-12-11 09:55 | NUR ---
SW following. Discussed with RN, pt from home, room air, regular diet, COVID-19 negative. Pt discharging today and will follow up at outpatient for an ERCP on December 17. RN notified. SW will continue to follow.
--- NOTE | 2020-12-11 10:12 | PDOC ---
Date of Service: DATE: 12/11/20 TIME: 10:09 Subjective: Subjective: Vomited yesterday but tolerating diet so far today. Feels better overall. Objective: Objective: Reviewed chart - some discussion of transfer but nurse says actually probably plans to DC and follow-up for outpt ERCP like we have discussed previously. Vital Signs: Vital Signs Date Time Temp Pulse Resp B/P (MAP) Pulse Ox O2 Delivery O2 Flow Rate FiO2 12/11/20 08:47 66 115/36 12/11/20 07:55 Room Air 12/11/20 07:00 97.9 18 92 97.9 Labs: Laboratory Tests Test 12/10/20 10:50 12/10/20 11:22 12/10/20 14:03 12/10/20 16:51 Vancomycin Level Trough 32.6 mcg/mL Vancomycin Last Dose Date 12/09/20 Vancomycin Last Dose Time 2330 Glucose (Fingerstick) 231 mg/dL 377 mg/dL Total Bilirubin 15.1 mg/dL Direct Bilirubin 12.7 mg/dL Test 12/10/20 19:22 12/11/20 08:01 Glucose (Fingerstick) 252 mg/dL 138 mg/dL PE: GEN: NAD LUNGS: CTAB HEART: RRR ABD: some mild discomfort RUQ, soft SKIN: +aundice NEURO/PSYCH: A & O 3 A/P: Choledocholithiasis, biliary stricture w/ retained surgical clip - s/p ERCP/sphincterotomy - couldn't pass balloon Jaundice COVID negative 12/05/20 -- DC per primary if tolerating diet. Nurse says ERCP @ scheduled for 12/17 - will have our office confirm. Justicifation of Admission Dx: Justifications for Admission: Justification of Admission Dx: Yes TAJ SHAH Dec 11, 2020 10:12
[2020-12-11 11:00] VITALS: BP 103/35
[2020-12-11] MEDS ORDERED: VANCOMYCIN RANDOM LEVEL. MC ONE (11:00)
[2020-12-11 11:22] LABS: ALBUMIN/GLOBULIN RATIO 0.5 (1.0-1.7); CALCIUM 8.3 mg/dL (8.5-10.1); CREATININE 1.7 mg/dL (0.6-1.0); GFR 30.2; POTASSIUM 3.9 mmol/L (3.5-5.1); TOTAL BILIRUBIN 15.4 mg/dL (0.2-1.0); TOTAL PROTEIN 6.1 g/dL (6.4-8.2)
[2020-12-11] MEDS ORDERED: ONDA4TAB7 PO (11:27)
[2020-12-11] MEDS ORDERED: LOPE2CAP PO (11:27)
[2020-12-11] MEDS ORDERED: AMOX1TAB61 PO (11:27)
[2020-12-11 11:28] LABS: BASO # 0.1 x10^3/uL (0.0-0.2); BASO % 1 % (0-3); EOS # 0.1 x10^3/uL (0.0-0.7); EOS % 2 % (0-3); HEMATOCRIT 27.3 % (36.0-47.0); HEMOGLOBIN 8.9 g/dL (12.0-15.5); LYMPH # 3.7 x10^3/uL (1.0-4.8); LYMPH % 58 % (24-48); MEAN CORPUSCULAR HEMOGLOBIN 31 pg (25-35); MEAN CORPUSCULAR HGB CONC 33 g/dL (31-37); MEAN CORPUSCULAR VOLUME 94 fL (79-100); MONO # 0.8 x10^3/uL (0.0-1.1); MONO % 12 % (0-9); NEUT # 1.7 x10^3/uL (1.8-7.7); PLATELET COUNT 189 x10^3/uL (140-400); RED BLOOD COUNT 2.91 x10^6/uL (3.50-5.40); RED CELL DISTRIBUTION WIDTH 22.7 % (11.5-14.5); WHITE BLOOD COUNT 6.5 x10^3/uL (4.0-11.0)
--- NOTE | 2020-12-11 11:29 | DISCH ---
DISCHARGE INSTRUCTIONS Condition on Discharge Condition on Discharge: Guarded Activity After Discharge Activity Instructions for Disc: Activity as tolerated Lifting Instructions after Dis: Do not lift >10 pounds Driving Instructions after Dis: Do not drive today Diet after Discharge Diet after Discharge: Full Liquid (Recommend to stay on full liquid diet but can advance to a GI soft diet if able to tolerate), Low Fat, GI Soft Follow-Up Follow up with: PCP within 2 weeks of discharge Follow Up With: [facility] next week on Tuesday for ERCP JAYANT WINTERS MD Dec 11, 2020 11:29
[2020-12-11 11:59] LABS: NEUT % 27 % (31-73)
[2020-12-11 12:04] LABS: % LYMPHS 13 % (24-48); % MONOS 6 % (0-10); % SEGS 81 % (35-66)
[2020-12-11 12:05] LABS: ANISOCYTOSIS SLIGHT; PLT ESTIMATE ADEQUATE (ADEQUATE)
[2020-12-11 12:06] LABS: TARGET CELLS OCC
--- NOTE | 2020-12-11 13:40 | NUR ---
Discharge Note: PHYLLIS LEMON JON[place]ILLS Discharge instructions and discharge home medications reviewed with Patient and a copy given. All questions have been answered and understanding verbalized. The following instructions and handouts were given: information about plan of care, medications, follow up appointments, diet, etc. Discontinued lines and drains: IV line in right AC removed, catheter tip intact. Patient discharged to home with self care with family member, wheelchair used for mobility to discharge vehicle.
--- NOTE | 2020-12-14 15:58 | PDOC3 ---
[facility]-Discharge Summary Date of Admission: Date of Admission: Dec 05, 2020 Date of Discharge: Date of Discharge: Dec 11, 2020 Discharge Diagnosis: Discharge Diagnosis: Biliary stricture with retained choledocholithiasis, s/p ERCP with spincterotomy but failed stone extraction Acute pancreatitis Acute abdominal pain secondary to acute pancreatitis and progressive Ascites Obesity with a BMI of 31 GERD History of diverticulosis History of cholecystectomy History of hypothyroidism acquired most likely History of diabetes mellitus type 2 History of dyslipidemia History of nephrolithiasis Hospital Course: Hospital Course: 65-year-old female with past medical history of diabetes mellitus type 2 hypothyroidism nephrolithiasis and GERD who was in her usual state of health until approximately 1 month prior to her admission when she started noticing epigastric pain which subsequently has migrated to quadrant pain. Patient also has radiation to the mid back and she has had decrease in appetite with subsequent 15 pound weight loss. The patient says that she was not hungry at all in had bouts of excessive salivation nausea and vomiting of clear liquid mostly sputum. Patient was seen in the outpatient setting and was in the process of being worked up since the patient was noted to have jaundice. This was noted by her chiropractor last week but due to the progressive nature of her symptoms worsening discomfort she decided to come to the emergency department for further evaluation and treatment. As part of her Imaging work-up she underwent CT of the abdomen with and without contrast with the following impression 1. Intrahepatic and extra hepatic biliary ductal dilatation with abrupt cut off of a dilated common bile duct slightly proximal to the ampulla. This may be due to a stricture or occult obstructing lesion. Tissue sampling with endoscopic ultrasound can be performed. MRCP may also be useful for further characterization. 2. Chronic pancreatitis with associated pancreatic calcifications and irregular pancreatic ductal dilatation. There is a 1.8 cm cystic lesion within the pancreatic neck which may be a pseudocyst or cystic neoplasm such as an intraductal papillary mucinous neoplasm. She was found to have an elevated lipase and will be admitted for treatment of pancreatitis. GI consultation has been requested as well to evaluate the abnormal findings on CAT scan. Reassurance has been provided plan of care explained in detail and all of her concerns addressed to the best of my abilities greater than 60 minutes were spent in the assessment of the patient counseling coordination of care and formulation of treatment plan 12/06: No acute events reported overnight, case discussed with nursing staff patient in no acute distress no complaints during my visit 12/07: Patient had a "rough night". At the time of my note she is resting in no acute distress. Plan of care discussed in detail all concerns addressed to the best of my abilities. 12/08/2020 No acute events overnight. Patient seen and examined bedside. Continues to have abdominal pain which requiring pain medication. Plan for ERCP tomorrow. Patient's chart, labs, images were reviewed and discussed with RN 12/09/2020 No acute events overnight. ERCP planned for today. Pending final results and findings. Patient's chart, labs, images were reviewed and discussed with RN 12/10/2020 No acute events overnight. Patient is afebrile. ERCP was unsuccessful in removing stone due to biliary stricture. Patient is tolerating breakfast today. Continues to be jaundiced. Pending transfer to [facility] for repeat ERCP. Patient's chart, labs, images were reviewed and discussed with RN Patient schedule for ERCP with [facility] on Tuesday12/17/20. Patient was tolerating regular diet without N/V. She will be DC to home and she will need to f/u with [facility]. Rest of her hospital course was uneventful. Disposition: Disposition/Orders: D/C to Home Activity: Activity: Resume previous activity Diet: Diet: Regular Medications: Home Meds Active Scripts Amoxicillin/Potassium Clav (AUGMENTIN 875-125 TABLET) 1 Each Tablet, 1 TAB PO BID for biliary infection prevention for 7 Days, #14 TAB 0 Refills Prov:JAYANT WINTERS MD 12/11/20 Ondansetron Hcl (ZOFRAN) 4 Mg Tablet, 1 TAB PO Q6HRS for nausea or vomiting for 10 Days, #40 TAB Prov:JAYANT WINTERS MD 12/11/20 Loperamide Hcl (LOPERAMIDE) 2 Mg Capsule, 2 MG PO PRN Q15MIN PRN for DIARRHEA for 14 Days, #60 CAP Prov:JAYANT WINTERS MD 12/11/20 Reported Medications Insulin Degludec (Tresiba) 100 Unit/1 Ml Vial, 80 UNIT SQ DAILY for diabetes, EACH 12/18/19 Insulin Lispro (HUMALOG) 100 Unit/1 Ml Cartridge, 25 UNIT SQ TIDAC for diabe, EACH 07/05/19 Omeprazole (PRILOSEC) 10 Mg Capsule.dr, 10 MG PO DAILY, CAP 05/21/15 Simvastatin (SIMVASTATIN) 80 Mg Tablet, 80 MG PO HS for FOR CHOLESTEROL, #30 TAB 0 Refills 05/21/15 Fenofibrate Nanocrystallized (FENOFIBRATE) 145 Mg Tablet, 160 MG PO DAILY, TAB 05/21/15 Levothyroxine Sodium (LEVOTHYROXINE SODIUM) 175 Mcg Tablet, 175 MCG PO DAILYAC for THYROID SUPPLEMENT, #30 TAB 0 Refills 05/21/15 Lisinopril (LISINOPRIL) 10 Mg Tablet, 10 MG PO DAILY for FOR HYPERTENSION, #30 TAB 0 Refills 05/21/15 Clopidogrel Bisulfate (CLOPIDOGREL) 75 Mg Tablet, 75 MG PO DAILY for TO PREVENT BLOOD CLOTS, #30 TAB 0 Refills 05/21/15 Sertraline Hcl (SERTRALINE HCL) 100 Mg Tablet, 100 MG PO DAILY for ANTI- DEPRESSANT, TAB 0 Refills 05/21/15 Canagliflozin (INVOKANA) 300 Mg Tablet, 300 MG PO DAILY 05/21/15 Metformin Hcl (METFORMIN HCL) 500 Mg Tablet, 500 MG PO BIDWMEALS for ANTI- DIABETIC, TAB 0 Refills 05/21/15 Discontinued Reported Medications [cbd oil] No Conflict Check, 250 PO BID for pain 07/05/19 Ibuprofen (IBUPROFEN) 400 Mg Tablet, 400 MG PO PRN Q6HRS PRN for INFLAMMATION, TAB 07/05/19 Colestipol Hcl (COLESTIPOL HCL) 1 Gm Tablet, 1 GM PO DAILY for unk, TAB 07/05/19 Diclofenac Sodium (DICLOFENAC SODIUM) 75 Mg Tablet.dr, 75 MG PO DAILY for inflamm, TAB.SR 07/05/19 Ergocalciferol (Vitamin D2) (VITAMIN D2) 50,000 Unit Capsule, 40859 UNIT PO WEEKLY 05/21/15 Ferrous Sulfate (FEOSOL) 325 Mg Tablet, 325 MG PO TID, TAB 05/21/15 Scheduled Amoxicillin/Potassium Clav (Augmentin 875-125 Tablet), 1 TAB PO BID Canagliflozin (Invokana), 300 MG PO DAILY, (Reported) Clopidogrel Bisulfate (Clopidogrel), 75 MG PO DAILY, (Reported) Fenofibrate Nanocrystallized (Fenofibrate), 160 MG PO DAILY, (Reported) Insulin Degludec (Tresiba), 80 UNIT SQ DAILY, (Reported) Insulin Lispro (Humalog), 25 UNIT SQ TIDAC, (Reported) Levothyroxine Sodium (Levothyroxine Sodium), 175 MCG PO DAILYAC, (Reported) Lisinopril (Lisinopril), 10 MG PO DAILY, (Reported) Metformin Hcl (Metformin Hcl), 500 MG PO BIDWMEALS, (Reported) Omeprazole (Prilosec), 10 MG PO DAILY, (Reported) Ondansetron Hcl (Zofran), 1 TAB PO Q6HRS Sertraline Hcl (Sertraline Hcl), 100 MG PO DAILY, (Reported) Simvastatin (Simvastatin), 80 MG PO HS, (Reported) Scheduled PRN Loperamide Hcl (Loperamide), 2 MG PO PRN Q15MIN PRN for DIARRHEA Discontinued Medications Colestipol Hcl (Colestipol Hcl), 1 GM PO DAILY, (Reported) Diclofenac Sodium (Diclofenac Sodium), 75 MG PO DAILY, (Reported) Ergocalciferol (Vitamin D2) (Vitamin D2), 50,000 UNIT PO WEEKLY, (Reported) Ferrous Sulfate (Feosol), 325 MG PO TID, (Reported) Ibuprofen (Ibuprofen), 400 MG PO PRN Q6HRS PRN for INFLAMMATION, (Reported) [cbd oil], 250 PO BID, (Reported) Total Time: Total Time: Total time spent was 50 minutes in preparing scripts, discharge planning with SW and RN, and preparing this discharge summary. Patient seen and examined on day of discharge. Justicifation of Admission Dx: Justifications for Admission: Justification of Admission Dx: Yes JAYANT WINTERS MD Dec 14, 2020 15:58
== END 2020-12-11 13:40 | disposition home or self-care (01) | DRG 438 ==
LOC: ER 08:31 → 4 NORTH 10:53
PROVIDERS: ADMIT Internal Medicine; ATTEND Internal Medicine
PROC: 0FJB8ZZ Inspection of Hepatobiliary Duct, Via Natural or Artificial Opening Endoscopic (ICD-10-PCS; principal; 2020-12-09 13:00)
DX: K85.90 Acute pancreatitis without necrosis or infection, unspecified (principal); E43 Unspecified severe protein-calorie malnutrition; E87.1 Hypo-osmolality and hyponatremia; K76.6 Portal hypertension; K80.51 Calculus of bile duct without cholangitis or cholecystitis with obstruction; K80.61 Calculus of gallbladder and bile duct with cholecystitis, unspecified, with obstruction; N17.9 Acute kidney failure, unspecified; N39.0 Urinary tract infection, site not specified; R18.8 Other ascites; E03.9 Hypothyroidism, unspecified; E11.9 Type 2 diabetes mellitus without complications; E66.9 Obesity, unspecified; E78.5 Hyperlipidemia, unspecified; I10 Essential (primary) hypertension; K21.9 Gastro-esophageal reflux disease without esophagitis; K57.30 Diverticulosis of large intestine without perforation or abscess without bleeding; K74.60 Unspecified cirrhosis of liver; K86.1 Other chronic pancreatitis; N20.0 Calculus of kidney; N60.02 Solitary cyst of left breast; Z20.822 Contact with and (suspected) exposure to COVID-19; Z68.31 Body mass index [BMI] 31.0-31.9, adult; Z82.49 Family history of ischemic heart disease and other diseases of the circulatory system; Z87.442 Personal history of urinary calculi; Z87.891 Personal history of nicotine dependence; Z90.49 Acquired absence of other specified parts of digestive tract; Z68.37 Body mass index [BMI] 37.0-37.9, adult; Z87.898 Personal history of other specified conditions
CPT/HCPCS: 36415; 43262; 74170; 74330; 80053; 80076; 80202; 81001; 82140; 82150; 82247; 82248; 82962; 83690; 85007; 85025; 85027; 85610; 86850; 86900; 86901; 87086; 87426; 96365; 96375; 99285; C1769; C9113; J1644; J1815; J2270; J2405; J2543; J2704; J3010; J3370; J3430; J7040; J7050; J7120; Q9967; U0003; G0378; J7030